=== PATIENT | female | born 1975 | race Caucasian/White ===

== ENCOUNTER 2017-12-16 10:00 | Outpatient (CLI) | payer MEDICAID, SELFPAY ==
[2017-12-16 10:31] LABS: Abs Immature Grans 0.01 k/cumm (0.0-0.09); Absolute Basophil Count 0.04 k/cumm (0.0-0.2); Absolute Eosinophil Count 0.33 k/cumm (0.0-0.7); Absolute Lymphocyte Count 1.72 k/cumm (1.2-3.4); Absolute Monocyte Count 0.84 k/cumm (0.11-0.7); Absolute Neutrophil Count 5.73 k/cumm (1.2-6.7); Basophils % 0.5; Eosinophils % 3.8; HCT 31.7 % (36.0-46.0); HGB 8.6 g/dL (12.0-15.5); Immature Grans % 0.1; Lymphocytes % 19.8; Mean Corp. HGB Concentration 27.1 g/dL (32.0-36.0); Mean Corpuscular Hemoglobin 19.6 pg (27.0-33.0); Mean Corpuscular Volume 72.4 fL (80-95); Mean Platelet Volume 9.8 fL (8.0-11.0); Monocytes % 9.7; Neutrophils % 66.1; Platelet Count 554 x1000/uL (130-400); RBC 4.38 m/cumm (4.00-5.20); RBC Distribution Width 19.9 % (11.7-14.6); Reticulocyte 2.6 % (0.5-2.4); White Blood Cell Count 8.67 k/cumm (4.4-10.8)
[2017-12-16 11:06] LABS: Anisocytosis 2+; Diff Comment RBC Morph Reviewed; Hypochromasia 2+
[2017-12-16 11:07] LABS: ALT 16 U/L (12-78); AST 21 U/L (15-37); Alkaline Phosphatase 90 U/L (46-116); Anion Gap 5.1 mmol/L (3-11); BUN 2 mg/dL (7-18); Bilirubin, Total 0.5 mg/dL (0.2-1.0); CO2 29.9 mmol/L (21.0-32.0); CREATININE 0.55 mg/dL (0.55-1.02); Calcium 8.7 mg/dL (8.5-10.1); Chloride 102 mmol/L (98-107); Ferritin 5 ng/mL (8-388); Glucose 90 mg/dL (70-100); Macrocytosis 1+; Microcytosis 1+; Polychromasia Present; Potassium 4.2 mmol/L (3.5-5.1); Sodium 137 mmol/L (136-145); Stomatocytes 2+; Total Protein 8.6 g/dL (6.4-8.2); Vitamin B12 497 pg/mL (193-986)
[2017-12-16 11:15] LABS: Poikilocytes 1+
[2017-12-16 11:30] LABS: Iron 173 ug/dL (50-175); Total Iron Binding Capacity 444 ug/dL (250-450); Transferrin Sat 39 % (15-50)
[2017-12-17 16:21] LABS: Erythropoietin 129 mIU/mL (2.6 - 18.5)
== END 2017-12-16 10:01 ==
PROVIDERS: PCP Specialist/Technologist Athletic Trainer; Visit Provider Specialist/Technologist Athletic Trainer
DX: D64.9 Anemia, unspecified (principal)
CPT/HCPCS: 36415; 80053; 82668; 82607; 82728; 82746; 83540; 83550; 85025; 85045

== ENCOUNTER 2018-01-22 11:23 | Outpatient (REF) | payer MEDICAID, SELFPAY ==
[2018-01-22 22:04] LABS: HCT 39.4 % (36.0-46.0); HGB 11.5 g/dL (12.0-15.5)
[2018-01-23 00:21] LABS: Ferritin 33 ng/mL (8-388)
== END 2018-01-22 11:43 ==
LOC: NCHCN 11:23
PROVIDERS: PCP Specialist/Technologist Athletic Trainer; Visit Provider Specialist/Technologist Athletic Trainer
DX: D64.9 Anemia, unspecified (principal)
CPT/HCPCS: 82728; 85014; 85018

== ENCOUNTER 2018-03-02 13:53 | Emergency (ER) | payer MEDICAID, SELFPAY ==
[2018-03-02 13:56] VITALS: BP 164/65; PULSE 89; RESP 16; TEMP 36.7; O2SAT 100
[2018-03-02 14:04] VITALS: BP 151/67; PULSE 90; RESP 16; O2SAT 99
--- NOTE | 2018-03-02 14:04 | W.ED.GENAD ---
Discharge Plan Disposition Patient Disposition: HOME Condition: Good Discharge Details Chief Complaint: DentalOral Clinical Impression: Odontalgia Primary Care Provider: Jeremy Camejo ED Provider: Vicente Barron Home Meds and New Rx's Prescriptions: New penicillin V potassium 500 mg tablet 500 mg PO TID 10 Days Qty: 30 RF: 0 Continue medroxyprogesterone [Provera] 10 MG tablet 10 mg PO DAILY Qty: 60 RF: 1 ferrous sulfate 325 MG tablet 325 mg PO DAILY PRNRF: 0 omeprazole 20 MG capsule,delayed release(DR/EC) 20 mg PO DAILY RF: 0 Discharge Instructions Instructions: Toothache (ED) Additional Instructions: Home to rest today. May use warm, salt water gargles to ease discomfort. May apply warm compress to area to speed healing. Please take penicillin as prescribed Please establish dental care. See enclosed dental sheet. You may also contact the [facility] for dentistry follow-up. There phone number is [phone] Medical Decision Making 42-year-old female with generally poor dentition presents with odontalgia of the left maxilla. She has numerous dental caries and partial teeth throughout. She does not evidence of localized abscess. We will treat with a course of penicillin. She will reestablish dental care. She understands return precautions as well as home management. HPI General Mode of arrival: ambulatory. Date/Time Provider Initiated Documentation: 03/02/18 13:55. Limitations to Documentation: no limitations. Information obtained by: patient. History of Present Illness 42 year old F presents to the emergency department with the chief complaint of Left tooth pain, described as moderate, Quality is described as aching, and is localized to the mouth. Patient reports no radiation. Patient started experiencing this day(s) and it has been constant. No relieving factors improve symptom(s), HPI Narrative: 42-year-old female with poor dentition presents with 2 days of the gradual onset of left maxillary pain that is dull, achy, constant, nonradiating, worse with eating. She does not have fever or change to voice. She has been taking liquids solids by mouth Related Data Home Medications Medication Instructions Recorded Confirmed ferrous sulfate 325 mg PO DAILY PRN 12/07/14 03/02/18 omeprazole 20 mg PO DAILY 12/07/14 03/02/18 medroxyprogesterone [Provera] 10 mg PO DAILY #60 tab-cap 11/06/17 03/02/18 penicillin V potassium 500 mg PO TID 10 Days #30 tab 03/02/18 Previous Rx's Medication Instructions Recorded medroxyprogesterone [Provera] 10 mg PO DAILY #60 tab-cap 11/06/17 penicillin V potassium 500 mg PO TID 10 Days #30 tab 03/02/18 Allergies Allergy/AdvReac Type Severity Reaction Status Date / Time No Known Allergies Allergy Unverified 03/02/18 13:59 General Stated Complaint: DentalOral KRISTIE: 5 Review of Systems Review of Systems 6 systems reviewed and otherwise negative [facility] Medical History Chronic GERD Diastasis recti Heart murmur Menorrhagia with irregular cycle Morbid obesity with BMI of 50.0-59.9, adult Transfusion history Social History Smoking/Tobacco Use Status: Current every day Exam Narrative Exam Narrative: GEN: awake, alert, oriented 3. Pleasant, well groomed, interactive. HEAD: Normocephalic, atraumatic ENT: Mucous membranes moist, the uvula is midline without asymmetry or exudate. There is dental caries and partial teeth throughout the maxilla. Tenderness to teeth approximately 7 through 9 without buccal fluctuance. EYES: PERRL, EOMI NECK: Full ROM, no MARTINEZ, no menigismus EXT: Full ROM, no edema, no rash Neuro: Grossly normal neurologic exam, conversant, interactive. Psych: Speech fluent, thoughts congruent, affect normal Course Vital Signs Temperature 36.7 C 03/02/18 13:56 Pulse 89 03/02/18 13:56 Respiratory Rate 16 03/02/18 13:56 Blood Pressure 164/65 H 03/02/18 13:56 Pulse Oximetry 100 03/02/18 13:56 Temperature 36.7 C 03/02/18 13:56 Temperature Source Skin 03/02/18 13:56 Pulse 89 03/02/18 13:56 Respiratory Rate 16 03/02/18 13:56 Respiratory Effort Non-Labored 03/02/18 13:58 Blood Pressure 164/65 H 03/02/18 13:56 Pulse Oximetry 100 03/02/18 13:56 Pain Level 10 03/02/18 14:00
--- NOTE | 2018-03-02 14:08 | ED.GENADUL_ITS ---
Discharge Plan Disposition Patient Disposition: HOME Condition: Good Discharge Details Chief Complaint: DentalOral Clinical Impression: Odontalgia Primary Care Provider: Jeremy Camejo ED Provider: Vicente Barron Home Meds and New Rx's Prescriptions: New penicillin V potassium 500 mg tablet 500 mg PO TID 10 Days Qty: 30 RF: 0 Continue medroxyprogesterone [Provera] 10 MG tablet 10 mg PO DAILY Qty: 60 RF: 1 ferrous sulfate 325 MG tablet 325 mg PO DAILY PRNRF: 0 omeprazole 20 MG capsule,delayed release(DR/EC) 20 mg PO DAILY RF: 0 Discharge Instructions Instructions: Toothache (ED) Additional Instructions: Home to rest today. May use warm, salt water gargles to ease discomfort. May apply warm compress to area to speed healing. Please take penicillin as prescribed Please establish dental care. See enclosed dental sheet. You may also contact the [facility] for dentistry follow-up. There phone number is [phone] Medical Decision Making 42-year-old female with generally poor dentition presents with odontalgia of the left maxilla. She has numerous dental caries and partial teeth throughout. She does not evidence of localized abscess. We will treat with a course of penicillin. She will reestablish dental care. She understands return precautions as well as home management. HPI General Mode of arrival: ambulatory . Date/Time Provider Initiated Documentation: 03/02/18 13:55 . Limitations to Documentation: no limitations . Information obtained by: patient . History of Present Illness 42 year old F presents to the emergency department with the chief complaint of Left tooth pain, described as moderate, Quality is described as aching, and is localized to the mouth. Patient reports no radiation. Patient started experiencing this day(s) and it has been constant. No relieving factors improve symptom(s), HPI Narrative: 42-year-old female with poor dentition presents with 2 days of the gradual onset of left maxillary pain that is dull, achy, constant, nonradiating, worse with eating. She does not have fever or change to voice. She has been taking liquids solids by mouth Related Data Home Medications Medication Instructions Recorded Confirmed ferrous sulfate 325 mg PO DAILY PRN 12/07/14 03/02/18 omeprazole 20 mg PO DAILY 12/07/14 03/02/18 medroxyprogesterone [Provera] 10 mg PO DAILY #60 tab-cap 11/06/17 03/02/18 penicillin V potassium 500 mg PO TID 10 Days #30 tab 03/02/18 Previous Rx's Medication Instructions Recorded medroxyprogesterone [Provera] 10 mg PO DAILY #60 tab-cap 11/06/17 penicillin V potassium 500 mg PO TID 10 Days #30 tab 03/02/18 Allergies Allergy/AdvReac Type Severity Reaction Status Date / Time No Known Allergies Allergy Unverified 03/02/18 13:59 General Stated Complaint: DentalOral KRISTIE: 5 Review of Systems Review of Systems 6 systems reviewed and otherwise negative [facility] Medical History Chronic GERD Diastasis recti Heart murmur Menorrhagia with irregular cycle Morbid obesity with BMI of 50.0-59.9, adult Transfusion history Social History Smoking/Tobacco Use Status: Current every day Exam Narrative Exam Narrative: GEN: awake, alert, oriented 3. Pleasant, well groomed, interactive. HEAD: Normocephalic, atraumatic ENT: Mucous membranes moist, the uvula is midline without asymmetry or exudate. There is dental caries and partial teeth throughout the maxilla. Tenderness to teeth approximately 7 through 9 without buccal fluctuance. EYES: PERRL, EOMI NECK: Full ROM, no MARTINEZ, no menigismus EXT: Full ROM, no edema, no rash Neuro: Grossly normal neurologic exam, conversant, interactive. Psych: Speech fluent, thoughts congruent, affect normal Course Vital Signs Temperature 36.7 C 03/02/18 13:56 Pulse 89 03/02/18 13:56 Respiratory Rate 16 03/02/18 13:56 Blood Pressure 164/65 H 03/02/18 13:56 Pulse Oximetry 100 03/02/18 13:56 Temperature 36.7 C 03/02/18 13:56 Temperature Source Skin 03/02/18 13:56 Pulse 89 03/02/18 13:56 Respiratory Rate 16 03/02/18 13:56 Respiratory Effort Non-Labored 03/02/18 13:58 Blood Pressure 164/65 H 03/02/18 13:56 Pulse Oximetry 100 03/02/18 13:56 Pain Level 10 03/02/18 14:00
[2018-03-02] MEDS: Penicillin V POTASSIUM 500 MG TAB PO (14:15)
[2018-03-02] MEDS: Acetaminophen 500 MG TAB 1000 MG PO (14:15)
== END 2018-03-02 14:20 | disposition home or self-care (01) ==
LOC: ER 14:09
PROVIDERS: Emergency Provider Emergency Medicine; PCP Specialist/Technologist Athletic Trainer
DX: R68.84 Jaw pain (principal); K02.9 Dental caries, unspecified
CPT/HCPCS: 99283; 99284

== ENCOUNTER 2018-03-03 14:56 | Emergency (ER) | payer MEDICAID, SELFPAY ==
[2018-03-03 15:25] VITALS: BP 145/75; PULSE 113; RESP 20; TEMP 37.3; O2SAT 96
--- NOTE | 2018-03-03 16:22 | NUR.NOTE ---
Patient escorted to room 9 at 1608. Pension Manager (Juani Delaney RN) assumed care at this point. Dr. Sharp in [place] to see Ms. Singletary. Rapid Influenza test negative.Nursing Note:
--- NOTE | 2018-03-03 16:28 | W.ED.GENAD ---
Discharge Plan Disposition Patient Disposition: HOME Condition: Stable Discharge Details Chief Complaint: Fever Clinical Impression: Dental infection Reason For Visit: [facility] Primary Care Provider: Jeremy Camejo ED Provider: Maricruz Sharp Home Meds and New Rx's Prescriptions: Continue medroxyprogesterone [Provera] 10 MG tablet 10 mg PO DAILY Qty: 60 RF: 1 ferrous sulfate 325 MG tablet 325 mg PO DAILY PRNRF: 0 omeprazole 20 MG capsule,delayed release(DR/EC) 20 mg PO DAILY RF: 0 penicillin V potassium 500 mg tablet 500 mg PO TID 10 Days Qty: 30 RF: 0 Discharge Instructions Instructions: Dental Caries (ED) Additional Instructions: You have a tooth infection but no obvious abscess on your exam today. It can be normal to develop a fever when you have an infection. Fever can make you feel tired, with chills and bodyaches. It is important to control the fever with tylenol and motrin as directed. Finish the antibiotics as directed. Drink plenty of fluids and get plenty of rest. Call a dentist to schedule a follow up appointment within the next week for re-evaluation and possible dental extraction. Return immediately to the emergency department if you develop any worsening or new concerning symptoms such as persistent fevers not relieved with tylenol or motrin, significant facial swelling, difficulty swallowing or swollen neck. Discharge Data Discharge Date/Time-TO BE ENTERED AT DEPARTURE: 03/03/18 16:40 Discharge Physician: Maricruz Sharp Medical Decision Making 42-year-old female who presents for fever and chills at home today. T-max 102. Patient was seen here yesterday for dental pain and was given a prescription for penicillin. She states she is taking the penicillin. She has not taken ibuprofen or Tylenol today. She denies headache, neck pain, sore throat, nasal discharge or congestion, cough, chest pain, shortness of breath, abdominal pain, vomiting, diarrhea or urinary symptoms. Patient appears nontoxic and in no acute distress. She is afebrile here. Heart rate tachycardic in triage but is now regular rate upon my assessment. Lungs clear to auscultation. She has a dental infection around approximate tooth #10, multiple caries and missing teeth throughout, but no obvious abscess. No submandibular swelling, fullness or evidence of Bernardo's angina. Explained to patient that with a dental infection, she can expect fever. Discussed that chills and body aches can be a result of the fever. Dose of Tylenol given here. She is instructed to drink plenty of fluids, alternate Tylenol and Motrin, and finish the antibiotics. It was discussed that antibiotics can take up to 48 hours to produce an effect. She is instructed to follow-up with a dentist through referrals given to her yesterday within the next week. She is instructed to return here immediately if worse. HPI General Mode of arrival: ambulatory. Date/Time Provider Initiated Documentation: 03/03/18 15:27. Limitations to Documentation: no limitations. Information obtained by: patient. HPI Narrative: Pt is a 42yo F who presents for fever, chills, bodyaches and dental infection x 1 day. Pt was seen here yesterday for dental pain and was sent home with penicillin for a dental infection but no abscess was seen at that time. Pt states her discharge instructions has instructed her to return to the ED with any fever or chills. Pt states she developed a fever of 102 today. She last took ibuprofen yesterday and did not take ibuprofen or tylenol today. Pt states she also wants to be checked for the flu because of her symptoms of bodyaches and chills. Past medical history: Anemia, GERD Surgical history: None Social history: Smokes tobacco, Occasional alcohol, Denies drugs Meds: See list Allergies: None Related Data Home Medications Medication Instructions Recorded Confirmed ferrous sulfate 325 mg PO DAILY PRN 12/07/14 03/03/18 omeprazole 20 mg PO DAILY 12/07/14 03/03/18 medroxyprogesterone [Provera] 10 mg PO DAILY #60 tab-cap 11/06/17 03/03/18 penicillin V potassium 500 mg PO TID 10 Days #30 tab 03/02/18 03/03/18 Previous Rx's Medication Instructions Recorded medroxyprogesterone [Provera] 10 mg PO DAILY #60 tab-cap 11/06/17 penicillin V potassium 500 mg PO TID 10 Days #30 tab 03/02/18 Allergies Allergy/AdvReac Type Severity Reaction Status Date / Time No Known Allergies Allergy Unverified 03/03/18 15:28 General Stated Complaint: Fever KRISTIE: 4 Review of Systems Review of Systems All systems reviewed & are unremarkable except as noted in HPI and below Constitutional Reports as per HPI, Reports body ache(s), Reports chills and Reports fever(s) Eyes Denies blurry vision ENT Reports dental pain, Denies dizziness, Denies sore throat and Denies throat swelling Cardiovascular Denies chest pain and Denies dyspnea Respiratory Denies dyspnea Gastrointestinal Denies abdominal pain, Denies diarrhea and Denies vomiting Genitourinary Denies hematuria and Denies dysuria Musculoskeletal Denies back pain and Denies numbness Integumentary/Breasts Denies lesions and Denies rash Neurologic Denies dizziness and Denies numbness Allergic/Immunologic Denies throat swelling [facility] Medical History Chronic GERD Diastasis recti Heart murmur Menorrhagia with irregular cycle Morbid obesity with BMI of 50.0-59.9, adult Transfusion history Social History Smoking/Tobacco Use Status: Current every day Exam Const General: cooperative, healthy appearing and no acute distress HENMT Head: normal to inspection Ears: TM's normal bilaterally General nose exam: external nose normal and nares normal Mouth: oral mucosae normal Teeth and gingiva: other (Approximately tooth number 10 with surrounding mucosal edema and erythema and tenderness to palpation but no discrete abscess.) Throat: posterior oropharynx normal Eyes General: appearance normal, both eyes and all related structures Neck Neck: normal visual inspection, trachea midline, no tracheal deviation and No submandibular swelling Resp Effort & Inspection: normal respiratory effort and able to speak in complete sentences Auscultation: clear to auscultation bilaterally Cardio Rate: regular rate Rhythm: regular rhythm Skin General skin exam: no rashes or lesions noted Neuro General: alert, awake and oriented x3 Motor: muscle tone normal throughout Extrem General: full ROM and edema (nonpitting indurated b/l lower extremities) Psych Appearance: grossly normal Affect: normal affect Course Vital Signs Temperature 99.1 F 03/03/18 15:25 Pulse 113 H 03/03/18 15:25 Respiratory Rate 20 03/03/18 15:25 Blood Pressure 145/75 H 03/03/18 15:25 Pulse Oximetry 96 03/03/18 15:25 Temperature 99.1 F 03/03/18 15:25 Temperature Source Temporal Artery Scan 03/03/18 15:25 Pulse 113 H 10/22/18 15:25 Respiratory Rate 20 03/03/18 15:25 Respiratory Effort Non-Labored 03/03/18 15:25 Blood Pressure 145/75 H 03/03/18 15:25 Blood Pressure Position Supine 03/03/18 15:25 Pulse Oximetry 96 03/03/18 15:25 Oxygen Delivery Method Room Air 03/03/18 15:25 Oxygen Flow Rate 0 03/03/18 15:25 Pain Level 0 03/03/18 15:25 Lab/Test Results Lab/Test Results: 03/03/18 14:59 Nasopharynx Influenza Types A,B Antigen - Final
[2018-03-03] MEDS: Acetaminophen 325 MG TAB 650 MG PO (16:31)
--- NOTE | 2018-03-03 16:34 | ED.GENADUL_ITS ---
Discharge Plan Disposition Patient Disposition: HOME Condition: Stable Discharge Details Chief Complaint: Fever Clinical Impression: Dental infection Reason For Visit: [facility] Primary Care Provider: Jeremy Camejo ED Provider: Maricruz Sharp Home Meds and New Rx's Prescriptions: Continue medroxyprogesterone [Provera] 10 MG tablet 10 mg PO DAILY Qty: 60 RF: 1 ferrous sulfate 325 MG tablet 325 mg PO DAILY PRNRF: 0 omeprazole 20 MG capsule,delayed release(DR/EC) 20 mg PO DAILY RF: 0 penicillin V potassium 500 mg tablet 500 mg PO TID 10 Days Qty: 30 RF: 0 Discharge Instructions Instructions: Dental Caries (ED) Additional Instructions: You have a tooth infection but no obvious abscess on your exam today. It can be normal to develop a fever when you have an infection. Fever can make you feel tired, with chills and bodyaches. It is important to control the fever with tylenol and motrin as directed. Finish the antibiotics as directed. Drink plenty of fluids and get plenty of rest. Call a dentist to schedule a follow up appointment within the next week for re- evaluation and possible dental extraction. Return immediately to the emergency department if you develop any worsening or new concerning symptoms such as persistent fevers not relieved with tylenol or motrin, significant facial swelling, difficulty swallowing or swollen neck. Discharge Data Discharge Date/Time-TO BE ENTERED AT DEPARTURE: 03/03/18 16:40 Discharge Physician: Maricruz Sharp Medical Decision Making 42-year-old female who presents for fever and chills at home today. T-max 102. Patient was seen here yesterday for dental pain and was given a prescription for penicillin. She states she is taking the penicillin. She has not taken ibuprofen or Tylenol today. She denies headache, neck pain, sore throat, nasal discharge or congestion, cough, chest pain, shortness of breath, abdominal pain , vomiting, diarrhea or urinary symptoms. Patient appears nontoxic and in no acute distress. She is afebrile here. Heart rate tachycardic in triage but is now regular rate upon my assessment. Lungs clear to auscultation. She has a dental infection around approximate tooth #10, multiple caries and missing teeth throughout, but no obvious abscess. No submandibular swelling, fullness or evidence of Bernardo's angina. Explained to patient that with a dental infection, she can expect fever. Discussed that chills and body aches can be a result of the fever. Dose of Tylenol given here. She is instructed to drink plenty of fluids, alternate Tylenol and Motrin, and finish the antibiotics. It was discussed that antibiotics can take up to 48 hours to produce an effect. She is instructed to follow-up with a dentist through referrals given to her yesterday within the next week. She is instructed to return here immediately if worse. HPI General Mode of arrival: ambulatory . Date/Time Provider Initiated Documentation: 03/03/18 15:27 . Limitations to Documentation: no limitations . Information obtained by: patient . HPI Narrative: Pt is a 42yo F who presents for fever, chills, bodyaches and dental infection x 1 day. Pt was seen here yesterday for dental pain and was sent home with penicillin for a dental infection but no abscess was seen at that time. Pt states her discharge instructions has instructed her to return to the ED with any fever or chills. Pt states she developed a fever of 102 today. She last took ibuprofen yesterday and did not take ibuprofen or tylenol today. Pt states she also wants to be checked for the flu because of her symptoms of bodyaches and chills. Past medical history: Anemia, GERD Surgical history: None Social history: Smokes tobacco, Occasional alcohol, Denies drugs Meds: See list Allergies: None Related Data Home Medications Medication Instructions Recorded Confirmed ferrous sulfate 325 mg PO DAILY PRN 12/07/14 03/03/18 omeprazole 20 mg PO DAILY 12/07/14 03/03/18 medroxyprogesterone [Provera] 10 mg PO DAILY #60 tab-cap 11/06/17 03/03/18 penicillin V potassium 500 mg PO TID 10 Days #30 tab 03/02/18 03/03/18 Previous Rx's Medication Instructions Recorded medroxyprogesterone [Provera] 10 mg PO DAILY #60 tab-cap 11/06/17 penicillin V potassium 500 mg PO TID 10 Days #30 tab 03/02/18 Allergies Allergy/AdvReac Type Severity Reaction Status Date / Time No Known Allergies Allergy Unverified 03/03/18 15:28 General Stated Complaint: Fever KRISTIE: 4 Review of Systems Review of Systems All systems reviewed & are unremarkable except as noted in HPI and below Constitutional Reports as per HPI, Reports body ache(s), Reports chills and Reports fever(s) Eyes Denies blurry vision ENT Reports dental pain, Denies dizziness, Denies sore throat and Denies throat swelling Cardiovascular Denies chest pain and Denies dyspnea Respiratory Denies dyspnea Gastrointestinal Denies abdominal pain, Denies diarrhea and Denies vomiting Genitourinary Denies hematuria and Denies dysuria Musculoskeletal Denies back pain and Denies numbness Integumentary/Breasts Denies lesions and Denies rash Neurologic Denies dizziness and Denies numbness Allergic/Immunologic Denies throat swelling [facility] Medical History Chronic GERD Diastasis recti Heart murmur Menorrhagia with irregular cycle Morbid obesity with BMI of 50.0-59.9, adult Transfusion history Social History Smoking/Tobacco Use Status: Current every day Exam Const General: cooperative, healthy appearing and no acute distress HENMT Head: normal to inspection Ears: TM's normal bilaterally General nose exam: external nose normal and nares normal Mouth: oral mucosae normal Teeth and gingiva: other (Approximately tooth number 10 with surrounding mucosal edema and erythema and tenderness to palpation but no discrete abscess.) Throat: posterior oropharynx normal Eyes General: appearance normal, both eyes and all related structures Neck Neck: normal visual inspection, trachea midline, no tracheal deviation and No submandibular swelling Resp Effort & Inspection: normal respiratory effort and able to speak in complete sentences Auscultation: clear to auscultation bilaterally Cardio Rate: regular rate Rhythm: regular rhythm Skin General skin exam: no rashes or lesions noted Neuro General: alert, awake and oriented x3 Motor: muscle tone normal throughout Extrem General: full ROM and edema (nonpitting indurated b/l lower extremities) Psych Appearance: grossly normal Affect: normal affect Course Vital Signs Temperature 99.1 F 03/03/18 15:25 Pulse 113 H 03/03/18 15:25 Respiratory Rate 20 03/03/18 15:25 Blood Pressure 145/75 H 03/03/18 15:25 Pulse Oximetry 96 03/03/18 15:25 Temperature 99.1 F 03/03/18 15:25 Temperature Source Temporal Artery Scan 03/03/18 15:25 Pulse 113 H 10/22/18 15:25 Respiratory Rate 20 03/03/18 15:25 Respiratory Effort Non-Labored 03/03/18 15:25 Blood Pressure 145/75 H 03/03/18 15:25 Blood Pressure Position Supine 03/03/18 15:25 Pulse Oximetry 96 03/03/18 15:25 Oxygen Delivery Method Room Air 03/03/18 15:25 Oxygen Flow Rate 0 03/03/18 15:25 Pain Level 0 03/03/18 15:25 Lab/Test Results Lab/Test Results: 03/03/18 14:59 Nasopharynx Influenza Types A,B Antigen - Final
== END 2018-03-03 16:40 | disposition home or self-care (01) ==
PROVIDERS: Emergency Provider Physician Assistant; PCP Specialist/Technologist Athletic Trainer
DX: K04.7 Periapical abscess without sinus (principal)
CPT/HCPCS: 87449; 99282

== ENCOUNTER 2018-03-12 14:22 | Outpatient (REF) | payer MEDICAID, SELFPAY ==
[2018-03-12 20:33] LABS: HGB 11.3 g/dL (12.0-15.5); Mean Corp. HGB Concentration 29.7 g/dL (32.0-36.0); Mean Corpuscular Hemoglobin 24.8 pg (27.0-33.0); Mean Corpuscular Volume 83.3 fL (80-95); Platelet Count 530 x1000/uL (130-400); RBC 4.56 m/cumm (4.00-5.20); RBC Distribution Width 14.3 % (11.7-14.6); White Blood Cell Count 10.14 k/cumm (4.4-10.8)
[2018-03-12 21:38] LABS: ALT 18 U/L (12-78); AST 16 U/L (15-37); Albumin 2.9 g/dL (3.4-5.0); Alkaline Phosphatase 103 U/L (46-116); Anion Gap 9.2 mmol/L (3-11); BUN 4 mg/dL (7-18); Bilirubin, Total 0.3 mg/dL (0.2-1.0); CO2 27.8 mmol/L (21.0-32.0); CREATININE 0.53 mg/dL (0.55-1.02); Calcium 9.2 mg/dL (8.5-10.1); Chloride 99 mmol/L (98-107); Cholesterol 141 mg/dL (50-200); Glucose 133 mg/dL (70-100); HDL Cholesterol 32 mg/dL (40-60); LDL CHOLESTEROL 98 mg/dL (<100); Potassium 4.5 mmol/L (3.5-5.1); Sodium 136 mmol/L (136-145); Triglyceride 87 mg/dL (30-150)
== END 2018-03-12 14:42 ==
LOC: NCHCN 14:22
PROVIDERS: PCP Specialist/Technologist Athletic Trainer; Visit Provider Specialist/Technologist Athletic Trainer
DX: D64.9 Anemia, unspecified (principal); F17.209 Nicotine dependence, unspecified, with unspecified nicotine-induced disorders; Z00.00 Encounter for general adult medical examination without abnormal findings
CPT/HCPCS: 80053; 80061; 83721; 85027

== ENCOUNTER 2018-04-17 00:28 | Outpatient (CLI) | payer MEDICAID, SELFPAY ==
--- NOTE | 2018-04-17 14:00 | MERGE_ITS ---
*[facility]* *[facility]* [address] [place] [address] Date of study: 04/17/2018 Transthoracic Echocardiography M-mode, complete 2D, complete spectral Doppler, and color Doppler *STUDY CONCLUSIONS* Summary: 1. Left ventricle: The cavity size was normal. Wall thickness was increased in a pattern of moderate LVH. Systolic function was vigorous. The estimated ejection fraction was 65-70%. Wall motion was normal; there were no regional wall motion abnormalities. 2. Right ventricle: The cavity size was at the upper limits of normal. Systolic function was low normal. 3. Aortic valve: A bicuspid morphology cannot be excluded; mildly thickened leaflets. Valve mobility was restricted. Transvalvular velocity was increased. There was mild stenosis. Peak velocity (S): 2.5m/sec. VTI ratio of LVOT to aortic valve: 0.53. 4. Inferior vena cava: The vessel was patent and normal in size. The respirophasic diameter changes were in the normal range (greater than or equal to 50%), consistent with normal central venous pressure. *PATIENT PRESENTATION* Height: 170.2cm ((67in) ) S/D Pressure: 146 / 74 Weight: 117.9kg ((259.5lb) ) BSA: 2.42m^2 Test start time: 02:15 PM. Test stop time: 03:15 PM. PERFORMING Unknown PERFORMING [facility] ORDERING Jeremy Camejo REFERRING Jeremy Camejo CLINICAL APPEALS REVIEWER Laura Brewer, (R)(CT), [facility] *PROCEDURE DATA* Procedure information: The patient was identified by two identifiers. This study was interpreted by [facility]. Pertinent images and digital data are archived for permanent storage and are available for subsequent review. No prior study was available for comparison. Study status: Routine. Transthoracic echocardiography. M-mode, complete 2D, complete spectral Doppler, and color Doppler. A Transthoracic Echocardiogram was performed. Scanning was performed from the parasternal, apical, subcostal, and suprasternal notch acoustic windows. Images were obtained using an [id number] cardiac ultrasound machine. Image quality was adequate. Study completion: The patient tolerated the procedure well. There were no complications. History: PMH: Murmur WILD. *CARDIAC ANATOMY* Left ventricle: The cavity size was normal. Wall thickness was increased in a pattern of moderate LVH. Systolic function was vigorous. The estimated ejection fraction was 65-70%. Wall motion was normal; there were no regional wall motion abnormalities. Aortic valve: Poorly visualized. A bicuspid morphology cannot be excluded; mildly thickened leaflets. Valve mobility was restricted. Doppler: Transvalvular velocity was increased. There was mild stenosis. There was no significant regurgitation. VTI ratio of LVOT to aortic valve: 0.53. Valve area (VTI): 1.7cm^2. Indexed valve area (VTI): 0.7cm^2/m^2. Peak velocity ratio of LVOT to aortic valve: 0.51. Valve area (Vmax): 1.6cm^2. Indexed valve area (Vmax): 0.7cm^2/m^2. Mean velocity ratio of LVOT to aortic valve: 0.59. Valve area (Vmean): 1.9cm^2. Indexed valve area (Vmean): 0.8cm^2/m^2. Mean gradient (S): 14.2mm Hg. Peak gradient (S): 24.6mm Hg. Aorta: Aortic root: The aortic root was normal in size. Ascending aorta: The ascending aorta was normal in size. Mitral valve: Structurally normal valve. Mobility was not restricted. Doppler: Transvalvular velocity was within the normal range. There was no evidence for stenosis. There was mild regurgitation. Valve area by pressure half-time: 3.6cm^2. Indexed valve area by pressure half-time: 1.5cm^2/m^2. Peak gradient (D): 8.1mm Hg. Left atrium: The atrium was normal in size. Right ventricle: The cavity size was at the upper limits of normal. Systolic function was low normal. Pulmonic valve: Poorly visualized. Doppler: Transvalvular velocity was within the normal range. There was no evidence for stenosis. There was no significant regurgitation. Tricuspid valve: Structurally normal valve. Doppler: Transvalvular velocity was within the normal range. There was no evidence for stenosis. There was trivial regurgitation. Pulmonary artery: Poorly visualized. Systolic pressure could not be accurately estimated. Right atrium: The atrium was normal in size. Pericardium: There was no pericardial effusion. Systemic veins: Inferior vena cava: Well visualized. The vessel was patent and normal in size. The respirophasic diameter changes were in the normal range (greater than or equal to 50%), consistent with normal central venous pressure. Baseline ECG: Normal sinus rhythm. Measurements Left ventricle Value Reference LV ID, ED, PLAX 4.5 cm 3.5 - 6.0 LV ID, ES, PLAX 3.2 cm 2.1 - 4.0 LV PW thickness, ED, PLAX 1.4 cm LV end-diastolic volume, 1-p A2C 150 ml LV ejection fraction, 1-p A2C 72 % LV end-diastolic volume, 1-p A4C 182 ml LV e', lateral 0.123 m/sec LV E/e', lateral 12 LV e', medial 0.091 m/sec LV E/e', medial 16 LV e', average 0.107 m/sec LV E/e', average 13 Ventricular septum Value Reference IVS thickness, ED, PLAX 1.5 cm LVOT Value Reference LVOT ID, A-P 2.0 cm LVOT area 3.2 cm^2 LVOT peak velocity, S 1.26 m/sec LVOT mean velocity, S 1.05 m/sec LVOT VTI, S 26.4 cm LVOT peak gradient, S 6.3 mm Hg LVOT mean gradient, S 4.6 mm Hg Stroke volume (SV), LVOT DP 83 ml Stroke index (SV/bsa), LVOT DP 34 ml/m^2 Aortic valve Value Reference Aortic valve peak velocity, S 2.5 m/sec Aortic valve mean velocity, S 1.77 m/sec Aortic valve VTI, S 50.0 cm Aortic mean gradient, S 14.2 mm Hg Aortic peak gradient, S 24.6 mm Hg VTI ratio, LVOT/AV 0.53 Aortic valve area, VTI 1.7 cm^2 Velocity ratio, peak, LVOT/AV 0.51 Aortic valve area, peak velocity 1.6 cm^2 Velocity ratio, mean, LVOT/AV 0.59 Aortic valve area, mean velocity 1.9 cm^2 Aortic valve area/bsa, mean velocity 0.8 cm^2/m^2 Aorta Value Reference Aortic root ID, ED 2.8 cm Ascending aorta ID, A-P, S 3.0 cm Left atrium Value Reference LA ID, A-P, ES 3.8 cm LA ID/bsa, A-P 1.6 cm/m^2 <=2.2 LA area, ES, A4C 19.2 cm^2 8.8 - 23.4 LA area, ES, A2C 21 cm^2 LA volume/bsa, ES, 1-p A4C 25 ml/m^2 LA volume, ES, 2-p 59 ml LA volume/bsa, ES, 2-p 24 ml/m^2 LA/aortic root ratio 1.39 Mitral valve Value Reference Mitral E-wave peak velocity 1.43 m/sec Mitral A-wave peak velocity 0.88 m/sec Mitral deceleration time 209 ms 150 - 230 Mitral pressure half-time 61 ms Mitral peak gradient, D 8.1 mm Hg Mitral E/A ratio, peak 1.62 Mitral valve area, PHT, DP 3.6 cm^2 Pulmonary veins Value Reference Pulmonary vein peak velocity, S 0.78 m/sec Pulmonary vein peak velocity, D 0.85 m/sec Pulmonary vein velocity ratio, peak, 0.91 S/D Pulmonary vein A-wave reversal peak 0.31 m/sec velocity Tricuspid valve Value Reference Tricuspid regurg peak velocity 1.6 m/sec Tricuspid peak RV-RA gradient 10.4 mm Hg Right atrium Value Reference RA area, ES, A4C 16.8 cm^2 8.3 - 19.5 Legend: (L) and (H) chepe values outside specified reference range. I have personally reviewed the images and have reviewed and edited the reported findings. Electronically signed by Larissa Bradley 04/17/2018 16:21
== END 2018-04-17 00:48 ==
PROVIDERS: PCP Specialist/Technologist Athletic Trainer; Visit Provider Specialist/Technologist Athletic Trainer
DX: R01.1 Cardiac murmur, unspecified (principal); I35.0 Nonrheumatic aortic (valve) stenosis; G47.33 Obstructive sleep apnea (adult) (pediatric)
CPT/HCPCS: 93306

== ENCOUNTER 2018-04-29 15:25 | Outpatient (REF) | payer MEDICAID, SELFPAY ==
--- NOTE | 2018-04-29 13:20 | PAPFT_PTH ---
PATIENT: TROY SCOTT LOC: [facility] U#:[id number] AGE/SX: 42/F ROOM: RE04/29/[address]: Mora Norton MD : 1975 BED: DIS: 04/29/2018 SPEC #: [id number] RECD: 04/29/18 17:44 STATUS: SENAIT REQ #: [id number] GHADA: 04/29/18 13:[address]: Mora Norton DEPT: [facility] Cytology RECD BY: Milla Kwan ENTERED: 04/29/18 17:44 SP TYPE: PAPFT OTHR DR: Jeremy Camejo Tissues: 1 - CX/ENDOCX FOR PAP SMEARS Procedures: PAP THIN PREP/UVM Screening HPV DNA PROBE Comments: [id number]
--- NOTE | 2018-04-29 13:50 | CER_PTH ---
PATIENT: TROY SCOTT LOC: [facility] U#:[id number] AGE/SX: 42/F ROOM: RE04/29/[address]: Mora Norton MD : 1975 BED: DIS: 04/29/2018 SPEC #: [id number] RECD: 04/29/18 17:37 STATUS: SENAIT REQ #: [id number] GHADA: 04/29/18 13:[address]: Mora Norton DEPT: Surgical Specimen RECD BY: Milla Kwan ENTERED: 04/29/18 17:38 SP TYPE: CER OTHR DR: Jeremy Camejo Tissues: 1 - CERVICAL BIOPSY 2 - CERVICAL BIOPSY 3 - ENDOCERVICAL BX/CURRETTE Procedures: GROSS AND MICRO LEVEL 4 Comments: [id number]
== END 2018-04-29 15:45 ==
LOC: LBN 15:25
PROVIDERS: PCP Specialist/Technologist Athletic Trainer; Visit Provider Obstetrics & Gynecology
DX: N87.0 Mild cervical dysplasia (principal); R87.610 Atypical squamous cells of undetermined significance on cytologic smear of cervix (ASC-US); Z12.4 Encounter for screening for malignant neoplasm of cervix; Z11.51 Encounter for screening for human papillomavirus (HPV)
CPT/HCPCS: 88142; 88305; 87624

== ENCOUNTER 2018-06-09 00:59 | Outpatient (CLI) | payer MEDICAID, SELFPAY ==
--- NOTE | 2018-06-09 13:09 | DI.RAD_ITS ---
SYMPTOMS/DIAGNOSIS: COUGH, R05 PA AND LATERAL CHEST: There are no prior comparison exams. The exam is limited by the patient's body habitus. The heart size is within normal limits. There is a question of some pulmonary artery prominence and mild peribronchial thickening as well as some increased interstitial markings which could indicate mild CHF. No focal area of consolidation or effusion is seen. IMPRESSION: Limited exam. Question of mild CHF.
== END 2018-06-09 01:19 ==
PROVIDERS: PCP Specialist/Technologist Athletic Trainer; Visit Provider Specialist/Technologist Athletic Trainer
DX: R05 Cough (principal); I50.9 Heart failure, unspecified
CPT/HCPCS: 71046

== ENCOUNTER 2018-06-12 17:10 | Inpatient (IN) | payer MEDICAID, SELFPAY ==
[2018-06-12] VITALS (44 sets, daily range): BP systolic 112–159; BP diastolic 45–81; PULSE 76–111; RESP 4–34; TEMP 37.1–37.8; O2SAT 67–99
[2018-06-12] MEDS: Albuterol 2.5 MG/3 ML INH SOLN VIAL UPD ×2 (17:25→19:45)
--- NOTE | 2018-06-12 17:49 | DI.CT_ITS ---
SYMPTOM/DIAGNOSIS: SHORTNESS OF BREATH, HYPOXIA, TACHYCARDIA, OBESE CT ANGIOGRAPHY OF THE CHEST: 06/12/18 CT angiography of the chest was performed with a bolus infusion of 88 cc Omnipaque 350. The examination is technically limited by the patient's body habitus and motion with suboptimal contrast bolus also noted. Images obtained through the upper abdomen show grossly unremarkable appearance of visualized portions of the liver and spleen. Mild prominence of mediastinal lymph nodes noted with the largest node a right hilar node measuring about 23 mm in greatest diameter. No gross pulmonary embolic disease in central pulmonary arteries or major branches. No thoracic aortic dissection or aneurysm. No pleural effusion seen. There are areas of apparent atelectasis and consolidation involving both lungs. The findings are suspicious for multifocal pneumonia. CONCLUSION: Findings suspicious for multifocal pneumonia. Appropriate follow up studies requested. No major pulmonary embolus identified on this somewhat limited examination.
--- NOTE | 2018-06-12 17:51 | W.ED.GENAD ---
Discharge Plan Disposition Patient Disposition: [facility] INPATIENT Condition: Serious Discharge Details Chief Complaint: SOB Clinical Impression: Pneumonia, Asthma exacerbation in COPD Primary Care Provider: Jeremy Camejo ED Provider: Remy Delcid Home Meds and New Rx's Prescriptions: No Action medroxyprogesterone [Provera] 10 MG tablet 10 mg PO DAILY Qty: 60 RF: 1 ferrous sulfate 325 MG tablet 325 mg PO DAILY PRNRF: 0 omeprazole 20 MG capsule,delayed release(DR/EC) 20 mg PO DAILY RF: 0 prednisone 10 mg Tablet 10 mg PO DAILY RF: 0 ProAir HFA 90 mcg/actuation Hfa Aerosol Inhaler 2 puff INHALATION Q6H PRNRF: 0 metoprolol tartrate 25 mg Tablet 25 mg PO BID RF: 0 Ensure Liquid PO TID RF: 0 Medical Decision Making 17:40 --42-year-old with history of multiple medical problems including chronic lymphedema, COPD, here with persistent cough for the past few weeks, worsening productive over the past few days with associated shortness of breath. Patient is tachypneic and hypoxia in mild respiratory distress on arrival. Patient has also had recent fever. She is tachycardic. Patient in critical condition on arrival. 18:00 -- Patient saturating in the 70s off oxygen. Supplemental oxygen was provided by nasal cannula and now saturating in the 90s. She has diffuse bilateral wheezing. Consider acute COPD exacerbation. I will give Solu-Medrol IV as well as 3 albuterol neb treatment. Respiratory therapy has been consulted and assisting in care of the patient. ECG was reviewed and interpreted by me: Normal sinus rhythm 96 bpm, normal axis, no STEMI, nondiagnostic. Consider pneumonia versus pulmonary embolism versus CHF versus acute COPD exacerbation. 19:27 -- CT reviewed by me: bilateral infiltrate worse RLL. Patient was treated by pcp with azithromycin for cough end of April. Will give levaquin and cefepime IV. 19:40 -- Patient reassessed. Wheeze improved but still present. She notes that she is breathing easier. Saturating mid 90s on 6L nasal canula. Interpreted by radiology:IMPRESSION: 1. Contrast bolus suboptimal for evaluation of pulmonary arteries but no large or central pulmonary embolus is identified. 2. Airspace disease particularly involving the right lung. There is atelectasis greater on the left than the right. Findings are suspicious for pneumonia. Clinical correlation, followup recommended. 3. Mediastinal and hilar nodes, nonspecific but may represent reactive adenopathy in the setting of pneumonia. 19:53 -- Spoke with Dr. Lomeli who will admit the patient. He requests bridging orders be placed to floor. Care transitioned to Dr. Mckenzie at 19:53. HPI General Mode of arrival: ambulatory. Date/Time Provider Initiated Documentation: 06/12/18 17:35. Limitations to Documentation: no limitations. Information obtained by: patient and RN/MD. HPI Narrative: 42-year-old female with history of multiple medical problems including chronic lymphedema, COPD, mild aortic stenosis, here with shortness of breath. Patient notes that she has had cough for the past few weeks. Cough is been much worse over the past few days. She was seen by her primary care physician this week and had a chest x-ray that she notes did not show pneumonia but was concerning for possible CHF. She was seen in the PCPs office today and found to be hypoxic saturating in the mid 70s. She was given oxygen in the office and her oxygenation improved to the 90s. She refused ambulance transport and arrives by private vehicle. Patient notes that her shortness of breath is moderate to severe. Worse with exertion. She has associated cough that is productive of yellow sputum. She also notes fever yesterday and today. She denies associated chest pain. She has chronic lower extremity edema but no calf pain. Related Data Home Medications Medication Instructions Recorded Confirmed ferrous sulfate 325 mg PO DAILY PRN 12/07/14 06/12/18 omeprazole 20 mg PO DAILY 12/07/14 06/12/18 medroxyprogesterone [Provera] 10 mg PO DAILY #60 tab-cap 11/06/17 06/12/18 albuterol sulfate [ProAir HFA] 2 puff INHALATION Q6H PRN 06/12/18 06/12/18 food supplemt, lactose-reduced PO TID 06/12/18 [Ensure] metoprolol tartrate 25 mg PO BID 06/12/18 06/12/18 prednisone 10 mg PO DAILY 06/12/18 06/12/18 Previous Rx's Medication Instructions Recorded medroxyprogesterone [Provera] 10 mg PO DAILY #60 tab-cap 11/06/17 Allergies Allergy/AdvReac Type Severity Reaction Status Date / Time No Known Allergies Allergy Unverified 06/12/18 17:21 General Stated Complaint: SOB KRISTIE: 2 Review of Systems Review of Systems All systems reviewed & are unremarkable except as noted in HPI and below Constitutional Reports fever(s) Cardiovascular Denies chest pain and Reports dyspnea Respiratory Reports cough, Denies hemoptysis, Reports dyspnea and Reports wheezing Hematologic/Lymphatic Reports other (LE edema chronic and unchanged) Allergic/Immunologic Reports wheezing [facility] Medical History Anemia, iron deficiency (Acute) Atypical nevi (Acute) Atypical squamous cells of undetermined significance on cytologic smear of cervix (ASC-US) (Acute) Disease of nail (Acute) Fatty infiltration of liver (Acute) Hernia, diaphragmatic (Acute) High grade squamous intraepithelial lesion on cytologic smear of cervix (HGSIL) (Acute) Internal hemorrhoids (Acute) Irregular menses (Acute) Lymph edema (Acute) Sleep apnea (Acute) Tobacco use disorder (Acute) Alcohol abuse (Chronic) Anemia (Chronic) Chronic obstructive pulmonary disease (Chronic) Chronic GERD Diastasis recti Heart murmur Menorrhagia with irregular cycle Morbid obesity with BMI of 50.0-59.9, adult Transfusion history Social History Smoking/Tobacco Use Status: Current every day History History 0 Para Hx # Term Pregnancies Multiple births Hx # Pregnancies Ectopic pregnancies AB induced Hx Number of Living Children AB spontaneous Exam Const General: cooperative and acute distress respiratory Nutritional Appearance: obese Orientation: alert and awake Limitations: mental status not altered HENAL Head: normocephalic and atraumatic Mouth: moist mucous membranes Eyes Conjunctivae: normal conjunctivae Sclera: normal sclerae EOM: EOM intact bilaterally Neck Neck: trachea midline and supple Resp Effort & Inspection: cough and tachypneic Auscultation: wheezes expiratory wheezes Cardio Jugular venous pressure: no JVD Rhythm: regular rhythm GI Palpation: soft, not firm, no guarding, no masses, not rigid and nontender Skin General skin exam: no rashes or lesions noted, crusts (distal LEs bilateral) and other (no cyanosis) Neuro General: alert, awake, oriented x3 and tone normal Extrem General: no calf tenderness bilaterally and edema Laterality: bilateral Psych Mental Status: mental status grossly normal Speech and Movement: speech and movement normal Course Vital Signs Temperature 37.1 C 06/12/18 17:13 Pulse 101 H 06/12/18 17:13 Respiratory Rate 18 06/12/18 17:13 Blood Pressure 150/81 H 06/12/18 17:13 Pulse Oximetry 67 L 06/12/18 17:13 Temperature 37.1 C 06/12/18 17:13 Temperature Source Temporal Artery Scan 06/12/18 17:13 Pulse 101 H 06/12/18 17:13 Respiratory Rate 18 06/12/18 17:13 Respiratory Effort 06/12/18 17:17 Blood Pressure 150/81 H 06/12/18 17:13 Pulse Oximetry 67 L 06/12/18 17:13 Oxygen Delivery Method Room Air 06/12/18 17:13 Oxygen Flow Rate 0 06/12/18 17:13 Pain Level 0 06/12/18 17:13 Critical Care Time Critical Care Time: Yes Total Critical Care Time: 45 Attestation: I spent greater than 45 minutes addressing this patient's immediate life threats.
--- NOTE | 2018-06-12 17:54 | ED.GENADUL_ITS ---
Discharge Plan Disposition Patient Disposition: [facility] INPATIENT Condition: Serious Discharge Details Chief Complaint: SOB Clinical Impression: Pneumonia, Asthma exacerbation in COPD Primary Care Provider: Jeremy Camejo ED Provider: Remy Delcid Home Meds and New Rx's Prescriptions: No Action medroxyprogesterone [Provera] 10 MG tablet 10 mg PO DAILY Qty: 60 RF: 1 ferrous sulfate 325 MG tablet 325 mg PO DAILY PRNRF: 0 omeprazole 20 MG capsule,delayed release(DR/EC) 20 mg PO DAILY RF: 0 prednisone 10 mg Tablet 10 mg PO DAILY RF: 0 ProAir HFA 90 mcg/actuation Hfa Aerosol Inhaler 2 puff INHALATION Q6H PRNRF: 0 metoprolol tartrate 25 mg Tablet 25 mg PO BID RF: 0 Ensure Liquid PO TID RF: 0 Medical Decision Making 17:40 --42-year-old with history of multiple medical problems including chronic lymphedema, COPD, here with persistent cough for the past few weeks, worsening productive over the past few days with associated shortness of breath. Patient is tachypneic and hypoxia in mild respiratory distress on arrival. Patient has also had recent fever. She is tachycardic. Patient in critical condition on arrival. 18:00 -- Patient saturating in the 70s off oxygen. Supplemental oxygen was provided by nasal cannula and now saturating in the 90s. She has diffuse bilateral wheezing. Consider acute COPD exacerbation. I will give Solu-Medrol IV as well as 3 albuterol neb treatment. Respiratory therapy has been consulted and assisting in care of the patient. ECG was reviewed and interpreted by me: Normal sinus rhythm 96 bpm, normal axis, no STEMI, nondiagnostic. Consider pneumonia versus pulmonary embolism versus CHF versus acute COPD exacerbation. 19:27 -- CT reviewed by me: bilateral infiltrate worse RLL. Patient was treated by pcp with azithromycin for cough end of April. Will give levaquin and cefepime IV. 19:40 -- Patient reassessed. Wheeze improved but still present. She notes that she is breathing easier. Saturating mid 90s on 6L nasal canula. Interpreted by radiology:IMPRESSION: 1. Contrast bolus suboptimal for evaluation of pulmonary arteries but no large or central pulmonary embolus is identified. 2. Airspace disease particularly involving the right lung. There is atelectasis greater on the left than the right. Findings are suspicious for pneumonia. Clinical correlation, followup recommended. 3. Mediastinal and hilar nodes, nonspecific but may represent reactive adenopathy in the setting of pneumonia. 19:53 -- Spoke with Dr. Lomeli who will admit the patient. He requests bridging orders be placed to floor. Care transitioned to Dr. Mckenzie at 19:53. HPI General Mode of arrival: ambulatory . Date/Time Provider Initiated Documentation: 06/12/18 17:35 . Limitations to Documentation: no limitations . Information obtained by: patient and RN/MD . HPI Narrative: 42-year-old female with history of multiple medical problems including chronic lymphedema, COPD, mild aortic stenosis, here with shortness of breath. Patient notes that she has had cough for the past few weeks. Cough is been much worse over the past few days. She was seen by her primary care physician this week and had a chest x- ray that she notes did not show pneumonia but was concerning for possible CHF. She was seen in the PCPs office today and found to be hypoxic saturating in the mid 70s. She was given oxygen in the office and her oxygenation improved to the 90s. She refused ambulance transport and arrives by private vehicle. Patient notes that her shortness of breath is moderate to severe. Worse with exertion. She has associated cough that is productive of yellow sputum. She also notes fever yesterday and today. She denies associated chest pain. She has chronic lower extremity edema but no calf pain. Related Data Home Medications Medication Instructions Recorded Confirmed ferrous sulfate 325 mg PO DAILY PRN 12/07/14 06/12/18 omeprazole 20 mg PO DAILY 12/07/14 06/12/18 medroxyprogesterone [Provera] 10 mg PO DAILY #60 tab-cap 11/06/17 06/12/18 albuterol sulfate [ProAir HFA] 2 puff INHALATION Q6H PRN 06/12/18 06/12/18 food supplemt, lactose-reduced PO TID 06/12/18 [Ensure] metoprolol tartrate 25 mg PO BID 06/12/18 06/12/18 prednisone 10 mg PO DAILY 06/12/18 06/12/18 Previous Rx's Medication Instructions Recorded medroxyprogesterone [Provera] 10 mg PO DAILY #60 tab-cap 11/06/17 Allergies Allergy/AdvReac Type Severity Reaction Status Date / Time No Known Allergies Allergy Unverified 06/12/18 17:21 General Stated Complaint: SOB KRISTIE: 2 Review of Systems Review of Systems All systems reviewed & are unremarkable except as noted in HPI and below Constitutional Reports fever(s) Cardiovascular Denies chest pain and Reports dyspnea Respiratory Reports cough, Denies hemoptysis, Reports dyspnea and Reports wheezing Hematologic/Lymphatic Reports other (LE edema chronic and unchanged) Allergic/Immunologic Reports wheezing [facility] Medical History Anemia, iron deficiency (Acute) Atypical nevi (Acute) Atypical squamous cells of undetermined significance on cytologic smear of cervix (ASC-US) (Acute) Disease of nail (Acute) Fatty infiltration of liver (Acute) Hernia, diaphragmatic (Acute) High grade squamous intraepithelial lesion on cytologic smear of cervix (HGSIL) (Acute) Internal hemorrhoids (Acute) Irregular menses (Acute) Lymph edema (Acute) Sleep apnea (Acute) Tobacco use disorder (Acute) Alcohol abuse (Chronic) Anemia (Chronic) Chronic obstructive pulmonary disease (Chronic) Chronic GERD Diastasis recti Heart murmur Menorrhagia with irregular cycle Morbid obesity with BMI of 50.0-59.9, adult Transfusion history Social History Smoking/Tobacco Use Status: Current every day History History 0 Para Hx # Term Pregnancies Multiple births Hx # Pregnancies Ectopic pregnancies AB induced Hx Number of Living Children AB spontaneous Exam Const General: cooperative and acute distress respiratory Nutritional Appearance: obese Orientation: alert and awake Limitations: mental status not altered HENWA Head: normocephalic and atraumatic Mouth: moist mucous membranes Eyes Conjunctivae: normal conjunctivae Sclera: normal sclerae EOM: EOM intact bilaterally Neck Neck: trachea midline and supple Resp Effort & Inspection: cough and tachypneic Auscultation: wheezes expiratory wheezes Cardio Jugular venous pressure: no JVD Rhythm: regular rhythm GI Palpation: soft, not firm, no guarding, no masses, not rigid and nontender Skin General skin exam: no rashes or lesions noted, crusts (distal LEs bilateral) and other (no cyanosis) Neuro General: alert, awake, oriented x3 and tone normal Extrem General: no calf tenderness bilaterally and edema Laterality: bilateral Psych Mental Status: mental status grossly normal Speech and Movement: speech and movement normal Course Vital Signs Temperature 37.1 C 06/12/18 17:13 Pulse 101 H 06/12/18 17:13 Respiratory Rate 18 06/12/18 17:13 Blood Pressure 150/81 H 06/12/18 17:13 Pulse Oximetry 67 L 06/12/18 17:13 Temperature 37.1 C 06/12/18 17:13 Temperature Source Temporal Artery Scan 06/12/18 17:13 Pulse 101 H 06/12/18 17:13 Respiratory Rate 18 06/12/18 17:13 Respiratory Effort 06/12/18 17:17 Blood Pressure 150/81 H 06/12/18 17:13 Pulse Oximetry 67 L 06/12/18 17:13 Oxygen Delivery Method Room Air 06/12/18 17:13 Oxygen Flow Rate 0 06/12/18 17:13 Pain Level 0 06/12/18 17:13 Critical Care Time Critical Care Time: Yes Total Critical Care Time: 45 Attestation: I spent greater than 45 minutes addressing this patient's immediate life threats.
[2018-06-12] MEDS: Albuterol 2.5 MG/3 ML INH SOLN VIAL (17:57)
[2018-06-12] MEDS: methylPREDNISolone SUCC 125 MG VIAL IVP (17:57)
[2018-06-12] MEDS: Albuterol/Ipratropium 3 ML UPD VIAL UPD ×3 (18:00→23:16)
[2018-06-12 18:01] LABS: Abs Immature Grans 0.07 k/cumm (0.0-0.09); Absolute Basophil Count 0.03 k/cumm (0.0-0.2); Absolute Eosinophil Count 0.22 k/cumm (0.0-0.7); Absolute Lymphocyte Count 1.11 k/cumm (1.2-3.4); Absolute Monocyte Count 1.11 k/cumm (0.11-0.7); Basophils % 0.3; Eosinophils % 2.5; HCT 45.4 % (36.0-46.0); HGB 13.8 g/dL (12.0-15.5); Immature Grans % 0.8; Lymphocytes % 12.6; Mean Corp. HGB Concentration 30.4 g/dL (32.0-36.0); Mean Corpuscular Volume 88.7 fL (80-95); Mean Platelet Volume 9.9 fL (8.0-11.0); Monocytes % 12.6; Neutrophils % 71.2; Platelet Count 310 x1000/uL (130-400); RBC 5.12 m/cumm (4.00-5.20); RBC Distribution Width 15.7 % (11.7-14.6); White Blood Cell Count 8.84 k/cumm (4.4-10.8)
[2018-06-12 18:24] LABS: ALT 16 U/L (12-78); AST 20 U/L (15-37); Alkaline Phosphatase 113 U/L (46-116); Anion Gap 6.5 mmol/L (3-11); BUN 3 mg/dL (7-18); CO2 34.5 mmol/L (21.0-32.0); CREATININE 0.63 mg/dL (0.55-1.02); Chloride 96 mmol/L (98-107); Glucose 93 mg/dL (70-100); Magnesium 1.9 mg/dL (1.8-2.4); Potassium 3.9 mmol/L (3.5-5.1); Sodium 137 mmol/L (136-145); Total Protein 9.2 g/dL (6.4-8.2)
[2018-06-12 18:29] LABS: Troponin I < 0.02 ng/mL (0.00-0.06)
[2018-06-12] MEDS: Omnipaque 350 MG/ML 100 ML BTL IJ (18:46)
[2018-06-12] MEDS: Normal Saline Flush 10 ML SYR IVP ×2 (18:48→21:55)
[2018-06-12 19:20] LABS: NT-proBNP 181 pg/mL
[2018-06-12] MEDS: CEFEPIME 2 GM in Normal Saline 100 ML IVPB (19:34)
--- NOTE | 2018-06-12 19:34 | DI.VRAD_ITS ---
EXAM: CT Angiography Chest With Contrast EXAM DATE/TIME: 06/12/2018 5:51 PM CLINICAL HISTORY: 42 years old, female; Signs and symptoms; Other: SOB, hypoxia, tachycardia, obese TECHNIQUE: Axial computed tomographic angiography images of the chest with intravenous contrast using CT angiography protocol. All CT scans at this facility use at least one of these dose optimization techniques: automated exposure control; mA and/or kV adjustment per patient size (includes targeted exams where dose is matched to clinical indication); or iterative reconstruction. Coronal and sagittal reformatted images were created and reviewed. MIP reconstructed images were created and reviewed. CONTRAST: 88 ml of omnipaque 350 administered intravenously. COMPARISON: CR XR CHEST 2V PA LATERAL 06/09/2018 1:03 PM FINDINGS: Pulmonary arteries: Contrast bolus is suboptimal but there are no intraluminal filling defects identified with in the proximal pulmonary arterial branches to suggest acute pulmonary embolus. Small or distal embolus could be missed on this examination. Aorta: The aorta is non-aneurysmal. There is no acute aortic abnormality. Lungs: Evaluation of the lungs is degraded by patient motion. There is patchy airspace disease at the right lung base/right costophrenic sulcus and also involving the middle lobe at the base. There is also subtle patchy airspace disease with in the right upper lobe. On the left, there are prominent atelectatic changes noted within the left lower lobe. There is some airspace consolidation and/or atelectasis seen within the left upper lobe. There is no evidence of a discrete endobronchial lesion. Pleural space: Large effusion or pneumothorax is not seen. Heart: The heart is upper limits of normal in size. There is no significant pericardial effusion. Liver: There is fatty infiltration of the liver. There are no acute findings identified in the upper abdomen. Lymph nodes: There are multiple mediastinal and hilar nodes noted. Mediastinal nodes measure up to 2.5 x 1.3 cm in the prevascular region is measured on series 4 image 18. Precarinal nodes measure up to 23 mm on image 20. There are small bilateral hilar nodes measuring up to 2.1 cm at the left hilum as measured on series 4 image 27. Bones/joints: There is no acute bony abnormality identified. Soft tissues: Subcutaneous soft tissues are unremarkable. Other findings: Examination is mildly degraded by patient motion. IMPRESSION: 1. Contrast bolus suboptimal for evaluation of pulmonary arteries but no large or central pulmonary embolus is identified. 2. Airspace disease particularly involving the right lung. There is atelectasis greater on the left than the right. Findings are suspicious for pneumonia. Clinical correlation, followup recommended. 3. Mediastinal and hilar nodes, nonspecific but may represent reactive adenopathy in the setting of pneumonia. Dictated and Authenticated by: Alda Gatica MD. Ordering:ESTHER Alberto MD
[2018-06-12] MEDS: LEVOFLOXACIN 750 MG/150 ML BAG 100 MG IVPB (19:35)
[2018-06-12] MEDS: Lactated Ringers 1,000 ML 1000 ML IV (19:35)
[2018-06-12] MEDS: guaiFENesin 600 MG TABCR 1200 MG PO (21:55)
[2018-06-12] MEDS: Enoxaparin 40 MG/0.4 ML SYR SC (21:55)
[2018-06-12] MEDS: Lactated Ringers 1,000 ML 125 ML IV (21:55)
[2018-06-12] MEDS: Benzonatate 200 MG CAP PO (21:55)
--- NOTE | 2018-06-12 23:01 | W.PM.HP.N ---
Date of service: 06/12/18 Time of Service: 23:02 Assessment and Plan (1) Acute pneumonitis: Current visit: Yes Status: Acute continue Levaquin 750 mg iv daily along w/ iv corticosteroids, aerosolized bronchodilators. She should receive the Prevnar 13 prior to discharge home then pneumovax in 6 to 12 months later. She needs to quit smoking and I counseled her on the same. She has cut down from former 1 ppd smoker to current level of 1/2 ppd but none in the last week since she has been ill. History of Present Illness Chief Complaint: dyspnea, wheezing, hypoxemia Narrative: 42 yr old morbidly obese female smoker w/ COPD, chronic lymphedema, GERD, iron deficiency anemia, who presents w/ cough for past few weeks. She was treated in Apr. for bronchitis w/ Zithromax. Cough has been worse over last several days and has been accompanied by wheezing but no fever and minimal sputum. She saw her PCP earlier in the week and had an CXR which was read as limited exam w/ questionable mild CHF (pulmonary artery prominence w/ mild peribronchial thickening and increased interstitial markings). She saw her PCP in follow up today and was noted to be hypoxemic in mid 70 %. She was given supplemental oxygen and an ambulance transfer to the hospital was recommended but refused. She drove herself to the ER where she was noted to be in acute respiratory distress w/ tachypnea, tachycardia and oxygen saturation in 70% on room air. She was noted to be febrile at 37.8. CT of her chest was performed and demonstrated bilateral mutilobar airspace consolidations c/w pneumonia. CT was taken w/ contrast to rule out PE. Because the contrast was suboptimal, PE could not be completely ruled out but no large/central PE were seen. Reactive mediastinal and hilar adenopathy was noted. Labs were remarkable for her CBC not showing a leukocytosis. Her pro-BNP was normal at 181 and her troponin was normal at less than 0.02. LFT and renal function was normal. Her electrolytes showed elevation of her CO2 at 35. Dr. Colette Delcid treated her w/ a continuous DuoNeb treatment x 4 total treatments and gave her corticosteroids (solumedrol 125 mg) and antibiotics (Cefepime and Levaquin). She improved remarkably and did not require NIPPV assistance. She is now admitted to med/surg for continued parenteral antibiotics, aerosolized bronchodilators, and corticosteroids. Patient states that she had her influenza vaccine earlier this but has not had a pneumonia vaccine. Review of Systems Constitutional Reports system reviewed and no additional complaints, except as docu Cardiovascular Reports system reviewed and no additional complaints, except as docu and Reports dyspnea Respiratory Reports chest congestion, Reports cough, Denies hemoptysis, Reports excessive phlegm production, Reports dyspnea and Reports wheezing Gastrointestinal Reports system reviewed and no additional complaints, except as docu Genitourinary Reports system reviewed and no additional complaints, except as docu Musculoskeletal Reports system reviewed and no additional complaints, except as docu Integumentary/Breasts Reports system reviewed and no additional complaints, except as docu Neurologic Reports system reviewed and no additional complaints, except as docu Psychiatric Reports system reviewed and no additional complaints, except as docu Endocrine Reports system reviewed and no additional complaints, except as docu Hematologic/Lymphatic Reports system reviewed and no additional complaints, except as docu Allergic/Immunologic Reports wheezing PFSH Medical History Anemia (Chronic) Fatty infiltration of liver (Chronic) Sleep apnea (Chronic) Atypical nevi (Chronic) Internal hemorrhoids (Chronic) Hernia, diaphragmatic (Chronic) Chronic obstructive pulmonary disease (Chronic) High grade squamous 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) Lymph edema (Chronic) Tobacco use disorder (Chronic) Irregular menses (Chronic) Anemia, iron deficiency (Chronic) Obstructive sleep apnea (Chronic) Hiatal hernia (Chronic) Tobacco abuse (Chronic) GERD (gastroesophageal reflux disease) (Chronic) 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) Aortic stenosis (Chronic 04/17/18) LVH (left ventricular hypertrophy) (Chronic 04/17/18) Lymphedema (Chronic) COPD (chronic obstructive pulmonary disease) (Chronic) Morbid obesity (Chronic) Atypical squamous cells of undetermined significance on cytologic smear of cervix (ASC-US) (Acute) Disease of nail (Acute) Alcohol abuse (Chronic) Dysfunctional uterine bleeding (Resolved) Chronic GERD Diastasis recti Heart murmur Menorrhagia with irregular cycle Morbid obesity with BMI of 50.0-59.9, adult Transfusion history Social History Smoking/Tobacco Use Status: Current every day tobacco type: cigarettes alcohol intake: current alcohol intake frequency: holidays/special occasions only History History 0 Para Hx # Term Pregnancies Multiple births Hx # Pregnancies Ectopic pregnancies AB induced Hx Number of Living Children AB spontaneous Meds Home Medications Medication Instructions Recorded Confirmed Type ferrous sulfate 325 mg PO DAILY PRN 12/07/14 06/12/18 History omeprazole 20 mg PO DAILY 12/07/14 06/12/18 History medroxyprogesterone [Provera] 10 mg PO DAILY #60 tab-cap 11/06/17 06/12/18 Rx albuterol sulfate [ProAir HFA] 2 puff INHALATION Q6H PRN 06/12/18 06/12/18 History food supplemt, lactose-reduced PO TID 06/12/18 History [Ensure] metoprolol tartrate 25 mg PO BID 06/12/18 06/12/18 History prednisone 10 mg PO DAILY 06/12/18 06/12/18 History Allergies Allergy/AdvReac Type Severity Reaction Status Date / Time No Known Allergies Allergy Unverified 06/12/18 17:21 Exam Const General: cooperative and ill appearing acutely Nutritional Appearance: obese morbidly obese Orientation: alert, awake and oriented x3 HENMT Head: normal to inspection and no palpable skull fracture Ears: hearing grossly normal bilaterally and EAC abnormal excessive cerumen bilaterally General nose exam: external nose normal, nares normal and nasal mucous membranes and turbinates normal Face and sinus: normal facial exam Mouth: oral mucosae normal Teeth and gingiva: dentition normal Neck Neck: normal visual inspection, full ROM, no lymphadenopathy and trachea midline Carotids: normal carotid upstroke Lymphatic: no lymphadenopathy noted Resp Effort & Inspection: prolonged expiratory phase Auscultation: bronchovesicular breath sounds bilaterally and wheezes scattered wheezes Cardio Jugular venous pressure: no JVD Palpation: normal PMI Rate: regular rate Rhythm: regular rhythm Heart Sounds: S1 normal, S2 normal and murmur systolic early, II/ and at the base GI Inspection: obesity Palpation: soft and nontender Percussion: normal to percussion Auscultation: normal bowel sounds Skin Rashes: rashes noted (chronic stasis dermatitis w/ lichenification of the pretibial surfaces) Wounds: no wounds Neuro General: alert, awake, oriented x3, moves all extremities and no focal motor deficits Cognition: normal cognition Speech: speech normal Motor: muscle tone normal throughout, strength 5/5 throughout and no movement abnormalities noted Extrem Right lower extremity: edema Details: pitting and 2+ Left lower extremity: edema Details: pitting and 2+ Psych Appearance: grossly normal Mental Status: mental status grossly normal Speech and Movement: speech and movement normal Mood: congruent mood Affect: normal affect Attitude: cooperative Thought Process: normal Thought Content: normal Insight: fair Judgment: fair Results Imaging CT scan - chest: report reviewed (IMPRESSION: 1. Contrast bolus suboptimal for evaluation of pulmonary arteries but no large or central pulmonary embolus is identified. 2. Airspace disease particularly involving the right lung. There is atelectasis greater on the left than the right. Findings are suspicious for pneumonia. Clini) EKG: image reviewed (NSR rate 96 bpm; no ischemic ST-T changes. low voltages across precordial leads) Labs : 06/12/18 17:15 06/12/18 17:15 Laboratory Results - last 24 hr 06/12/18 06/12/18 06/12/18 17:15 17:15 18:00 WBC 8.84 RBC 5.12 Hgb 13.8 Hct 45.4 MCV 88.7 MCH 27.0 MCHC 30.4 L RDW 15.7 H Plt Count 310 MPV 9.9 Immature Gran % 0.8 Neutrophils % 71.2 Lymphocytes % 12.6 Monocytes % 12.6 Eosinophils % 2.5 Basophils % 0.3 Absolute Neutrophils 6.30 Absolute Lymphocytes 1.11 L Absolute Monocytes 1.11 H Absolute Eosinophils 0.22 Absolute Basophils 0.03 Sodium 137 Potassium 3.9 Chloride 96 L Carbon Dioxide 34.5 H Anion Gap 6.5 BUN 3 L Creatinine 0.63 Estimated GFR/1.73 m2 >= 60.00 Glucose 93 Lactate 1.0 Calcium 9.0 Magnesium 1.9 Total Bilirubin 1.0 AST 20 ALT 16 Alkaline Phosphatase 113 Troponin I < 0.02 NT-Pro-B Natriuret Pep 181 Total Protein 9.2 H Albumin 3.0 L Last Vital Signs Temp 37.6 C H 06/12/18 22:00 Pulse 88 06/12/18 22:00 Resp 20 06/12/18 22:00 BP 125/73 06/12/18 22:00 Pulse Ox 95 06/12/18 22:00
[2018-06-13] VITALS (15 sets, daily range): BP systolic 115–143; BP diastolic 58–81; PULSE 59–101; RESP 4–24; TEMP 36.1–36.8; O2SAT 92–96
[2018-06-13] MEDS: methylPREDNISolone SUCC 125 MG VIAL 80 MG IVP ×3 (02:30→19:31)
[2018-06-13] MEDS: Lactated Ringers 1,000 ML 125 ML IV ×2 (05:15→13:48)
[2018-06-13] MEDS: Albuterol/Ipratropium 3 ML UPD VIAL UPD ×4 (05:55→23:04)
[2018-06-13 07:27] LABS: Abs Immature Grans 0.05 k/cumm (0.0-0.09); Absolute Basophil Count 0.02 k/cumm (0.0-0.2); Absolute Lymphocyte Count 0.91 k/cumm (1.2-3.4); Absolute Monocyte Count 0.37 k/cumm (0.11-0.7); Absolute Neutrophil Count 8.05 k/cumm (1.2-6.7); Basophils % 0.2; HCT 43.7 % (36.0-46.0); Immature Grans % 0.5; Lymphocytes % 9.7; Mean Corp. HGB Concentration 29.7 g/dL (32.0-36.0); Mean Corpuscular Hemoglobin 26.7 pg (27.0-33.0); Mean Corpuscular Volume 89.7 fL (80-95); Mean Platelet Volume 9.9 fL (8.0-11.0); Monocytes % 3.9; Neutrophils % 85.7; Platelet Count 307 x1000/uL (130-400); RBC 4.87 m/cumm (4.00-5.20); RBC Distribution Width 15.5 % (11.7-14.6)
[2018-06-13 07:48] LABS: Anion Gap 1.9 mmol/L (3-11); BUN 3 mg/dL (7-18); CO2 37.1 mmol/L (21.0-32.0); CREATININE 0.59 mg/dL (0.55-1.02); Chloride 97 mmol/L (98-107); Glucose 151 mg/dL (70-100); Potassium 4.5 mmol/L (3.5-5.1); Sodium 136 mmol/L (136-145)
[2018-06-13] MEDS: medroxyPROGESTERone 10 MG TAB PO (09:03)
[2018-06-13] MEDS: guaiFENesin 600 MG TABCR 1200 MG PO ×2 (09:04→19:31)
[2018-06-13] MEDS: Omeprazole 20 MG CAPCR PO (09:04)
[2018-06-13] MEDS: Metoprolol 25 MG TAB PO ×2 (09:04→19:31)
[2018-06-13] MEDS: Benzonatate 200 MG CAP PO ×3 (09:04→19:32)
--- NOTE | 2018-06-13 10:34 | PDOC.CMIN ---
- If Service Date Differs Date of service: 06/13/18 Time of Service: 10:34 Care Management Initial Assess REASON FOR HOSPITALIZATION:: Acute pneumonitis PAST MEDICAL HISTORY/PAST SURGICAL HISTORY:: Anemia (Chronic). Fatty infiltration of liver (Chronic). Sleep apnea (Chronic). Atypical nevi (Chronic). Internal hemorrhoids (Chronic). Hernia, diaphragmatic (Chronic). Chronic obstructive pulmonary disease (Chronic). 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 Lymph edema (Chronic). Tobacco use disorder (Chronic). Irregular menses (Chronic). Anemia, iron deficiency (Chronic). Obstructive sleep apnea (Chronic). Hiatal hernia (Chronic). Tobacco abuse (Chronic). GERD (gastroesophageal reflux disease) (Chronic). 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 Aortic stenosis (Chronic 04/17/18). LVH (left ventricular hypertrophy) (Chronic 04/17/18). Lymphedema (Chronic). COPD (chronic obstructive pulmonary disease) (Chronic). Morbid obesity (Chronic). Atypical squamous cells of undetermined significance on cytologic smear of cervix (ASC-US) (Acute). Disease of nail (Acute). Alcohol abuse (Chronic). Dysfunctional uterine bleeding (Resolved). Chronic GERD. Diastasis recti. Heart murmur. Menorrhagia with irregular cycle. Morbid obesity with BMI of 50.0-59.9, adult. Transfusion history PREVIOUS FUNCTIONAL STATUS/SOCIAL/FAMILY SUPPORTS:: Kenna resides with her Yehuda in [place], and her sister and her sisters boyfriend resides with them as well. Kenna is independent at baseline, she states that she manages her ADL's. Kenna does not drive, and states that she depends on her sister Pau for transportation. CURRENT FUNCTIONAL STATUS:: Currently Kenna is sitting up in her chair when this continuity writer visits. She is pleasant and receptive to discussion. ADVANCE DIRECTIVES:: None on file Has patient been provided with information about the portal?: Yes Did the patient sign up for the portal?: No CODE STATUS:: Full Code INSURANCE COVERAGE / FINANCIAL ISSUES:: Medicaid CURRENT HOME/COMMUNITY SERVICES/EQUIPMENT:: Currently Kenna has no services in the community. Kenna states that she has a CPAP machine at home, and that this was distributed to her when she was a resident of [place]. Kenna states that she has been paying for her own tubing and would like assistance with transitioning to a company in [place]. CM to speak with RT Candida, in regards to the above. PRIMARY CARE PHYSICIAN:: Jeremy Camejo POTENTIAL DISCHARGE NEEDS:: F/U appointment with PCP PATIENT/FAMILY EDUCATION NEEDS:: Review DC instructions, any limitations, and ongoing DC planning discussion. Discuss 'Ask Me Three' ANTICIPATED BARRIERS TO DISCHARGE:: None identified at this time TRANSPORTATION:: Via private vehicle with sister Pau PLAN:: Kenna will return home once medically cleared. She will F/U with PCP and plan of care as prescribed. CM notified RT Candida, of Kenna's need for a DME locally for CPAP supplies, and Candida will assist with this. Kenna's sister Pau will transport when ready.
[2018-06-13] MEDS: Normal Saline Flush 10 ML SYR IVP ×2 (11:33→15:56)
--- NOTE | 2018-06-13 14:42 | INITIAL_ITS ---
- If Service Date Differs Date of service: 06/13/18 Time of Service: 10:34 Care Management Initial Assess REASON FOR HOSPITALIZATION:: Acute pneumonitis PAST MEDICAL HISTORY/PAST SURGICAL HISTORY:: Anemia (Chronic). Fatty infiltration of liver (Chronic). Sleep apnea (Chronic). Atypical nevi (Chronic). Internal hemorrhoids (Chronic). Hernia, diaphragmatic (Chronic). Chronic obstructive pulmonary disease (Chronic). 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 Lymph edema (Chronic). Tobacco use disorder (Chronic). Irregular menses (Chronic). Anemia, iron deficiency (Chronic). Obstructive sleep apnea (Chronic). Hiatal hernia (Chronic). Tobacco abuse (Chronic). GERD (gastroesophageal reflux disease) (Chronic). 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 Aortic stenosis (Chronic 04/17/18). LVH (left ventricular hypertrophy) (Chronic 04/17/18). Lymphedema (Chronic). COPD (chronic obstructive pulmonary disease) (Chronic). Morbid obesity (Chronic). Atypical squamous cells of undetermined significance on cytologic smear of cervix (ASC- [place]) (Acute). Disease of nail (Acute). Alcohol abuse (Chronic). Dysfunctional uterine bleeding (Resolved). Chronic GERD. Diastasis recti. Heart murmur. Menorrhagia with irregular cycle. Morbid obesity with BMI of 50.0-59.9, adult. Transfusion history PREVIOUS FUNCTIONAL STATUS/SOCIAL/FAMILY SUPPORTS:: Kenna resides with her Yehuda in [place], and her sister and her sisters boyfriend resides with them as well. Kenna is independent at baseline, she states that she manages her ADL's. Kenna does not drive, and states that she depends on her sister Pau for transportation. CURRENT FUNCTIONAL STATUS:: Currently Kenna is sitting up in her chair when this typewriter assembler visits. She is pleasant and receptive to discussion. ADVANCE DIRECTIVES:: None on file Has patient been provided with information about the portal?: Yes Did the patient sign up for the portal?: No CODE STATUS:: Full Code INSURANCE COVERAGE / FINANCIAL ISSUES:: Medicaid CURRENT HOME/COMMUNITY SERVICES/EQUIPMENT:: Currently Kenna has no services in the community. Kenna states that she has a CPAP machine at home, and that this was distributed to her when she was a resident of [place]. Kenna states that she has been paying for her own tubing and would like assistance with transitioning to a company in [place]. CM to speak with RT Candida, in regards to the above. PRIMARY CARE PHYSICIAN:: Jeremy Camejo POTENTIAL DISCHARGE NEEDS:: F/U appointment with PCP PATIENT/FAMILY EDUCATION NEEDS:: Review DC instructions, any limitations, and ongoing DC planning discussion. Discuss 'Ask Me Three' ANTICIPATED BARRIERS TO DISCHARGE:: None identified at this time TRANSPORTATION:: Via private vehicle with sister Pau PLAN:: Kenna will return home once medically cleared. She will F/U with PCP and plan of care as prescribed. CM notified RT Candida, of Kenna's need for a DME locally for CPAP supplies, and Candida will assist with this. Kenna's sister Pau will transport when ready.
--- NOTE | 2018-06-13 15:15 | PGE_ITS ---
Date of Service Date of service: 06/13/18 Time of Service: 15:31 Assessment and Plan (1) Acute pneumonitis: Current visit: Yes Status: Acute continue Levaquin 750 mg iv daily along w/ iv corticosteroids, aerosolized bronchodilators. She should receive the Prevnar 13 prior to discharge home then pneumovax in 6 to 12 months later. She needs to quit smoking and I counseled her on the same, though she has cut down from 1 pack to 1/2 a pack she is not ready to quit at this moment. Will continue to admitting counselor and assess readiness to quit. (2) Sleep apnea: Start date: 06/13/18 Start time: 15:09 Current visit: Yes Status: Chronic Uses CPAP at night and currently set up for one while in the hospital (3) Tobacco abuse: Start date: 06/13/18 Start time: 15:12 Current visit: Yes Status: Chronic 1/2 pack per day smoker who is currently not ready to quite. (4) Lymphedema: Start date: 06/13/18 Start time: 15:12 Current visit: No Status: Chronic Improving. Pt states they have gone down a lot. no edema at this time. (5) Morbid obesity: Start date: 06/13/18 Start time: 15:13 Current visit: Yes Status: Chronic (6) Obstructive sleep apnea: Start date: 06/13/18 Start time: 15:21 Current visit: Yes Status: Chronic (7) GERD (gastroesophageal reflux disease): Start date: 06/13/18 Start time: 15:23 Current visit: Yes Status: Chronic Currently on omeprazole 20 mg, changed to protonix IVP 40 mg BID as patient is receiving high doses steroids IV (8) Acute exacerbation of COPD with asthma: Start date: 06/13/18 Start time: 15:27 Current visit: Yes Status: Acute likely due to pneumonitis, will continue treatment with levaquin, steroids IV continue monitoring and wean down and continue nebs. (9) Headache: Start date: 06/13/18 Start time: 15:31 Current visit: Yes Status: Acute C/o headache today, tylenol 1000 mg po ordered. Subjective Patient reports: feels better Interval history since last seen: 42 y.o. morbidly obese female with hx of smoking, COPD, chronic lymphedema, GERD, Iron deficiency anemia, presenting with cough for last couple weeks. In Apr she was treated fir bronchitis on zithromax. Over last several days cough has been worsening accompained with wheezing, no fever and minimal sputum. A CXR earlier this week done by her PCP revealed, limited exam with questionable mild CHF. She followed up with her PCP yesterday and noted to hypoxemic in mid 70%. She refused transport from PCP and drove herself to the ER where she was noted to be in acute respiratory distress. CT of her chest showed bilateral multiloblar airspace consolidations with pneumonia. She was admitted to med surg for parentaeral antibiotics, aerosolized bronchodilators, corticosteroids. Today she states she is feeling better, breathing easier. She does endorse not sleeping well last night as she could not get comfortable. she c/o headache and said that if she were to sleep the cpap machine would have worked out. She stated I just want to get some sleep. I ordered her tylenol 1000 mg for her headache, and benadryl for sleep. she does not appear SOB and denies it with excertion. Refusing to quite smoking at this time. Exam Const General: cooperative and no acute distress Other: obese Neck Lymphatic: no lymphadenopathy noted and no lymphedema noted Chest Chest: normal inspection of the chest Resp Effort & Inspection: normal respiratory effort and able to speak in complete sentences Auscultation: crackles and wheezes Other: wheezes that patient states are better Cardio Rate: regular rate Rhythm: regular rhythm Heart Sounds: S1 normal and S2 normal GI Inspection: normal to inspection Skin General skin exam: no rashes or lesions noted Neuro General: alert, awake and oriented x3 Extrem General: normal to inspection Objective Objective Clinical Data: Abnormal lab results 06/12/18 06/12/18 06/13/18 Range/Units 17:15 17:15 06:36 MCH (27.0-33.0) pg MCHC 30.4 L (32.0-36.0) g/dL RDW 15.7 H (11.7-14.6) % Absolute Neutrophils (1.2-6.7) k/cumm Absolute Lymphocytes 1.11 L (1.2-3.4) k/cumm Absolute Monocytes 1.11 H (0.11-0.7) k/cumm Chloride 96 L 97 L (98-107) mmol/L Carbon Dioxide 34.5 H 37.1 H (21.0-32.0) mmol/L Anion Gap 1.9 L (3-11) mmol/L BUN 3 L 3 L (7-18) mg/dL Glucose 151 H (70-100) mg/dL Total Protein 9.2 H (6.4-8.2) g/dL Albumin 3.0 L (3.4-5.0) g/dL 06/13/18 Range/Units 06:36 MCH 26.7 L (27.0-33.0) pg MCHC 29.7 L (32.0-36.0) g/dL RDW 15.5 H (11.7-14.6) % Absolute Neutrophils 8.05 H (1.2-6.7) k/cumm Absolute Lymphocytes 0.91 L (1.2-3.4) k/cumm Absolute Monocytes (0.11-0.7) k/cumm Chloride (98-107) mmol/L Carbon Dioxide (21.0-32.0) mmol/L Anion Gap (3-11) mmol/L BUN (7-18) mg/dL Glucose (70-100) mg/dL Total Protein (6.4-8.2) g/dL Albumin (3.4-5.0) g/dL Vital Signs Temperature 36.1 C L 06/13/18 11:45 Temperature Source Tympanic 06/13/18 11:45 Pulse 75 06/13/18 13:48 Pulse Rhythm Regular 06/13/18 08:10 Pulse 95 H 06/12/18 21:30 Respiratory Rate 20 06/13/18 11:45 Respiratory Effort 06/13/18 08:10 Respiratory Depth Normal 06/13/18 08:10 Respiratory Pattern Normal 06/13/18 08:10 Blood Pressure 115/58 L 06/13/18 11:45 Blood Pressure Mean 78 06/12/18 20:15 Pulse Oximetry 95 06/13/18 11:45 Oxygen Delivery Method Nasal Cannula 06/13/18 11:45 Oxygen Flow Rate 4 06/13/18 11:45 Pain Level 0 06/13/18 11:45 Intake & Output 06/12/18 06/13/18 06/13/18 23:59 11:59 23:59 Intake Total 1250 / 1250 2006.667 / 3126.667 1120 / 3126.667 Output Total 800 / 800 1800 / 1800 Balance 450 / 450 206.667 / 7467.224 5070 / 1326.667 Weight 172.365 kg 185.4 kg Intake: IV 1250 / 1250 926.667 / 0134.047 5293 / 1926.667 Oral 1080 / 1200 120 / 1200 Output: Urine 800 / 800 1800 / 1800 Other: Urine Color Dark Mary Dark Mary Urine Appearance Clear Clear Voiding Methods Bedside Commode Toilet Laboratory Results WBC 9.40 k/cumm (4.4-10.8) 06/13/18 06:36 RBC 4.87 m/cumm (4.00-5.20) 06/13/18 06:36 Hgb 13.0 g/dL (12.0-15.5) 06/13/18 06:36 Hct 43.7 % (36.0-46.0) 06/13/18 06:36 MCV 89.7 fL (80-95) 06/13/18 06:36 MCH 26.7 pg (27.0-33.0) L 06/13/18 06:36 MCHC 29.7 g/dL (32.0-36.0) L 06/13/18 06:36 RDW 15.5 % (11.7-14.6) H 06/13/18 06:36 Plt Count 307 x1000/uL (130-400) 06/13/18 06:36 MPV 9.9 fL (8.0-11.0) 06/13/18 06:36 Immature Gran % 0.5 06/13/18 06:36 Neutrophils % 85.7 06/13/18 06:36 Lymphocytes % 9.7 06/13/18 06:36 Monocytes % 3.9 06/13/18 06:36 Eosinophils % 0.0 06/13/18 06:36 Basophils % 0.2 06/13/18 06:36 Absolute Neutrophils 8.05 k/cumm (1.2-6.7) H 06/13/18 06:36 Absolute Lymphocytes 0.91 k/cumm (1.2-3.4) L 06/13/18 06:36 Absolute Monocytes 0.37 k/cumm (0.11-0.7) 06/13/18 06:36 Absolute Eosinophils 0.00 k/cumm (0.0-0.7) 06/13/18 06:36 Absolute Basophils 0.02 k/cumm (0.0-0.2) 06/13/18 06:36 Sodium 136 mmol/L (136-145) 06/13/18 06:36 Potassium 4.5 mmol/L (3.5-5.1) 06/13/18 06:36 Chloride 97 mmol/L (98-107) L 06/13/18 06:36 Carbon Dioxide 37.1 mmol/L (21.0-32.0) H 06/13/18 06:36 Anion Gap 1.9 mmol/L (3-11) L 06/13/18 06:36 BUN 3 mg/dL (7-18) L 06/13/18 06:36 Creatinine 0.59 mg/dL (0.55-1.02) 06/13/18 06:36 Estimated GFR/1.73 m2 >= 60.00 (mL/min/1.73m2) 06/13/18 06:36 Glucose 151 mg/dL (70-100) H 06/13/18 06:36 Lactate 1.0 mmol/l (0.6-1.4) 06/12/18 18:00 Calcium 9.0 mg/dL (8.5-10.1) 06/13/18 06:36 Magnesium 2.0 mg/dL (1.8-2.4) 06/13/18 06:36 Total Bilirubin 1.0 mg/dL (0.2-1.0) 06/12/18 17:15 AST 20 U/L (15-37) 06/12/18 17:15 ALT 16 U/L (12-78) 06/12/18 17:15 Alkaline Phosphatase 113 U/L (46-116) 06/12/18 17:15 Troponin I < 0.02 ng/mL (0.00-0.06) 06/12/18 17:15 NT-Pro-B Natriuret Pep 181 pg/mL (-299) 06/12/18 17:15 Total Protein 9.2 g/dL (6.4-8.2) H 06/12/18 17:15 Albumin 3.0 g/dL (3.4-5.0) L 06/12/18 17:15
--- NOTE | 2018-06-13 16:33 | SAO2N_ITS ---
SAO2 with Exercise Patient:TYLERTROY Date/Time: 06/19/18 0649 [id number] Tech: KL
[2018-06-13] MEDS: Pantoprazole 40 MG VIAL IVP (19:31)
[2018-06-13] MEDS: LEVOFLOXACIN 750 MG/150 ML BAG 100 MG IVPB (19:32)
--- NOTE | 2018-06-13 19:43 | NUR.NOTE ---
Nursing Note: Report received from off-going nurse, patient is currently up to bedside chair, no report of pain or discomfort at this time.
[2018-06-13] MEDS: Enoxaparin 40 MG/0.4 ML SYR SC (21:35)
[2018-06-13] MEDS: diphenhydrAMINE 25 MG CAP 50 MG PO (21:35)
[2018-06-14] VITALS (11 sets, daily range): BP systolic 120–148; BP diastolic 68–76; PULSE 54–78; RESP 4–28; TEMP 36.3–37.1; O2SAT 87–98
[2018-06-14] MEDS: methylPREDNISolone SUCC 125 MG VIAL 80 MG IVP ×3 (01:03→17:31)
[2018-06-14] MEDS: Albuterol/Ipratropium 3 ML UPD VIAL UPD ×3 (05:11→21:46)
[2018-06-14 07:32] LABS: Abs Immature Grans 0.04 k/cumm (0.0-0.09); Absolute Basophil Count 0.01 k/cumm (0.0-0.2); Absolute Lymphocyte Count 0.82 k/cumm (1.2-3.4); Absolute Neutrophil Count 10.12 k/cumm (1.2-6.7); Basophils % 0.1; HCT 45.6 % (36.0-46.0); HGB 13.3 g/dL (12.0-15.5); Immature Grans % 0.3; Lymphocytes % 7.1; Mean Corp. HGB Concentration 29.2 g/dL (32.0-36.0); Mean Corpuscular Hemoglobin 26.7 pg (27.0-33.0); Mean Corpuscular Volume 91.6 fL (80-95); Mean Platelet Volume 9.9 fL (8.0-11.0); Monocytes % 4.4; Neutrophils % 88.1; Platelet Count 312 x1000/uL (130-400); RBC 4.98 m/cumm (4.00-5.20); RBC Distribution Width 15.5 % (11.7-14.6); White Blood Cell Count 11.49 k/cumm (4.4-10.8)
[2018-06-14 07:37] LABS: Absolute Monocyte Count 0.51 k/cumm (0.11-0.7)
[2018-06-14] MEDS: Benzonatate 200 MG CAP PO ×3 (07:48→21:39)
[2018-06-14] MEDS: Pantoprazole 40 MG VIAL IVP ×2 (07:48→21:44)
[2018-06-14] MEDS: Metoprolol 25 MG TAB PO ×2 (07:48→21:40)
[2018-06-14 07:49] LABS: Anion Gap 0.8 mmol/L (3-11); BUN 4 mg/dL (7-18); CO2 37.2 mmol/L (21.0-32.0); CREATININE 0.56 mg/dL (0.55-1.02); Calcium 9.1 mg/dL (8.5-10.1); Chloride 97 mmol/L (98-107); Glucose 182 mg/dL (70-100); Potassium 4.9 mmol/L (3.5-5.1); Sodium 135 mmol/L (136-145)
[2018-06-14] MEDS: guaiFENesin 600 MG TABCR 1200 MG PO ×2 (07:49→21:39)
[2018-06-14] MEDS: Normal Saline Flush 10 ML SYR IVP ×4 (07:49→21:45)
[2018-06-14] MEDS: medroxyPROGESTERone 10 MG TAB PO (07:49)
--- NOTE | 2018-06-14 13:36 | PDOC.CMPRO ---
- If Service Date Differs Date of service: 06/14/18 Time of Service: 13:36 Care Management Progress Note S/O: Kenna is sitting up in her chair when this medical technical writer visits this morning. She is pleasant and receptive to discussion. Kenna continues to have an oxygen requirement at this time. She states that her night was alright and easily engages in conversation. CM discussed that RT Candida, would be working with Kenna regarding her CPAP machine and supplies. No change in DC plan at this time. A: 42 y/o female admitted 06/12/18 for Pneumonia, COPD Exacerbation. P: Kenna will return home with no anticipated services once medically cleared. She will F/U with PCP and plan of care as prescribed. Kenna's sister to transport when medically ready.
--- NOTE | 2018-06-14 13:54 | CMPROGNOTE_ITS ---
- If Service Date Differs Date of service: 06/14/18 Time of Service: 13:36 Care Management Progress Note S/O: Kenna is sitting up in her chair when this technical proposal writer visits this morning. She is pleasant and receptive to discussion. Kenna continues to have an oxygen requirement at this time. She states that her night was alright and easily engages in conversation. CM discussed that RT Candida, would be working with Kenna regarding her CPAP machine and supplies. No change in DC plan at this time. A: 42 y/o female admitted 06/12/18 for Pneumonia, COPD Exacerbation. P: Kenna will return home with no anticipated services once medically cleared. She will F/U with PCP and plan of care as prescribed. Kenna's sister to transport when medically ready.
--- NOTE | 2018-06-14 15:10 | PGE_ITS ---
Date of Service Date of service: 06/14/18 Time of Service: 15:14 Assessment and Plan (1) Acute pneumonitis: Start date: 06/14/18 Start time: 15:04 Current visit: Yes Status: Acute continue Levaquin 750 mg iv daily along w/ iv corticosteroids, aerosolized bronchodilators. Day #2 of Levaquin, Repeat CXR as last one was on 06/09 and continue to monitor (2) Sleep apnea: Start date: 06/14/18 Start time: 15:05 Current visit: Yes Status: Chronic Uses CPAP at night, her sleep study was [facility] in [place] will request records from there (3) Tobacco abuse: Start date: 06/14/18 Current visit: Yes Status: Chronic not ready to quite, i discussed at length quitting options. (4) Lymphedema: Start date: 06/14/18 Start time: 15:07 Current visit: No Status: Chronic improved. will continue to monitor. (5) Morbid obesity: Start date: 06/14/18 Start time: 15:07 Current visit: Yes Status: Chronic Diet changed to low sodium low k+ (6) GERD (gastroesophageal reflux disease): Start date: 06/14/18 Start time: 15:08 Current visit: Yes Status: Chronic protonix IVP 40 mg BID as patient is receiving high doses steroids IV (7) Acute exacerbation of COPD with asthma: Start date: 06/14/18 Start time: 15:08 Current visit: Yes Status: Acute likely due to pneumonitis, will continue treatment with levaquin, steroids IV continue monitoring and wean down and continue nebs. 95% on 3 L, started spirivia, ICS and exercise oximetery ordered CXR one has not been done since and will follow up with results (8) Rash: Start date: 06/14/18 Start time: 15:04 Current visit: Yes Status: Acute clomitrozole 1% cream for rash under gluteal folds and breasts. Subjective Patient reports: feels better Interval history since last seen: Today she states she is feeling more tired which she attributes to lack of sleep last night. I did order her benadryl prn for sleep but she did not know to ask for it. She does endorse breathing easier. Her lungs are sounding better and wheezing is minimal. I have repeated a CXR, results pending, I will keep her on solumedrol 80 until tomorrow and reevaluate, I have dcd her fluids. She is most comfortable sitting up in a chair and thinks she will be able to sleep well tonight in the chair. Her sleep study [facility] at [facility] in [place] I have asked nursing to retrieve chart. Exam Const General: cooperative and no acute distress [facility] Head: normal to inspection Eyes General: appearance normal, both eyes and all related structures Neck Lymphatic: no lymphadenopathy noted and no lymphedema noted Chest Chest: normal inspection of the chest Resp Effort & Inspection: normal respiratory effort and able to speak in complete sentences Auscultation: crackles, rhonchi and wheezes (minimal wheezes with improvement) expiratory wheezes and lower bilaterally Cardio Rate: regular rate Rhythm: regular rhythm Heart Sounds: S1 normal and S2 normal GI Inspection: normal to inspection Skin Other: rash under breasts and gluteal folds Neuro General: alert, awake and oriented x3 Extrem General: normal to inspection Objective Objective Clinical Data: Abnormal lab results 06/14/18 06/14/18 Range/Units 07:00 07:00 WBC 11.49 H (4.4-10.8) k/cumm MCH 26.7 L (27.0-33.0) pg MCHC 29.2 L (32.0-36.0) g/dL RDW 15.5 H (11.7-14.6) % Absolute Neutrophils 10.12 H (1.2-6.7) k/cumm Absolute Lymphocytes 0.82 L (1.2-3.4) k/cumm Sodium 135 L (136-145) mmol/L Chloride 97 L (98-107) mmol/L Carbon Dioxide 37.2 H (21.0-32.0) mmol/L Anion Gap 0.8 L (3-11) mmol/L BUN 4 L (7-18) mg/dL Glucose 182 H (70-100) mg/dL Vital Signs Temperature 36.6 C 06/14/18 12:56 Temperature Source Tympanic 06/14/18 12:56 Pulse 73 06/14/18 12:56 Pulse Rhythm Regular 06/14/18 07:54 Pulse 95 H 06/12/18 21:30 Respiratory Rate 19 06/14/18 12:56 Respiratory Effort 06/14/18 07:54 Respiratory Depth Normal 06/14/18 07:54 Respiratory Pattern Normal 06/14/18 07:54 Blood Pressure 146/72 H 06/14/18 12:56 Blood Pressure Mean 78 06/12/18 20:15 Pulse Oximetry 98 06/14/18 12:56 Oxygen Delivery Method Room Air 06/14/18 12:56 Oxygen Flow Rate 0 06/14/18 12:56 Pain Level 0 06/14/18 07:40 Intake & Output 06/13/18 06/14/18 06/14/18 23:59 11:59 23:59 Intake Total 1635 / 3641.667 360 / 840 480 / 840 Output Total 600 / 2400 Balance 1035 / 1241.667 360 / 840 480 / 840 Intake: IV 1275 / 2201.667 Oral 360 / 1440 360 / 840 480 / 840 Output: Urine 600 / 2400 Other: Urine Color Yellow Urine Appearance Clear Comment reports voiding w/o difficulty Voiding Methods Bedside Commode Laboratory Results WBC 11.49 k/cumm (4.4-10.8) H 06/14/18 07:00 RBC 4.98 m/cumm (4.00-5.20) 06/14/18 07:00 Hgb 13.3 g/dL (12.0-15.5) 06/14/18 07:00 Hct 45.6 % (36.0-46.0) 06/14/18 07:00 MCV 91.6 fL (80-95) 06/14/18 07:00 MCH 26.7 pg (27.0-33.0) L 06/14/18 07:00 MCHC 29.2 g/dL (32.0-36.0) L 06/14/18 07:00 RDW 15.5 % (11.7-14.6) H 06/14/18 07:00 Plt Count 312 x1000/uL (130-400) 06/14/18 07:00 MPV 9.9 fL (8.0-11.0) 06/14/18 07:00 Immature Gran % 0.3 06/14/18 07:00 Neutrophils % 88.1 06/14/18 07:00 Lymphocytes % 7.1 06/14/18 07:00 Monocytes % 4.4 06/14/18 07:00 Eosinophils % 0.0 06/14/18 07:00 Basophils % 0.1 06/14/18 07:00 Absolute Neutrophils 10.12 k/cumm (1.2-6.7) H 06/14/18 07:00 Absolute Lymphocytes 0.82 k/cumm (1.2-3.4) L 06/14/18 07:00 Absolute Monocytes 0.51 k/cumm (0.11-0.7) 06/14/18 07:00 Absolute Eosinophils 0.00 k/cumm (0.0-0.7) 06/14/18 07:00 Absolute Basophils 0.01 k/cumm (0.0-0.2) 06/14/18 07:00 Sodium 135 mmol/L (136-145) L 06/14/18 07:00 Potassium 4.9 mmol/L (3.5-5.1) 06/14/18 07:00 Chloride 97 mmol/L (98-107) L 06/14/18 07:00 Carbon Dioxide 37.2 mmol/L (21.0-32.0) H 06/14/18 07:00 Anion Gap 0.8 mmol/L (3-11) L 06/14/18 07:00 BUN 4 mg/dL (7-18) L 06/14/18 07:00 Creatinine 0.56 mg/dL (0.55-1.02) 06/14/18 07:00 Estimated GFR/1.73 m2 >= 60.00 (mL/min/1.73m2) 06/14/18 07:00 Glucose 182 mg/dL (70-100) H 06/14/18 07:00 Lactate 1.0 mmol/l (0.6-1.4) 06/12/18 18:00 Calcium 9.1 mg/dL (8.5-10.1) 06/14/18 07:00 Magnesium 2.0 mg/dL (1.8-2.4) 06/14/18 07:00 Total Bilirubin 1.0 mg/dL (0.2-1.0) 06/12/18 17:15 AST 20 U/L (15-37) 06/12/18 17:15 ALT 16 U/L (12-78) 06/12/18 17:15 Alkaline Phosphatase 113 U/L (46-116) 06/12/18 17:15 Troponin I < 0.02 ng/mL (0.00-0.06) 06/12/18 17:15 NT-Pro-B Natriuret Pep 181 pg/mL (-299) 06/12/18 17:15 Total Protein 9.2 g/dL (6.4-8.2) H 06/12/18 17:15 Albumin 3.0 g/dL (3.4-5.0) L 06/12/18 17:15
--- NOTE | 2018-06-14 16:36 | DI.RAD_ITS ---
SYMPTOM/DIAGNOSIS: PNEUMONIA PA AND LATERAL CHEST: Comparison is made with 09 June 2018 The exam was limited by the patient's body habitus. The heart is enlarged. There are increased patchy densities seen in the left upper lobe. There is also a question of mildly increased densities at both bases. No effusions are seen. IMPRESSION: Left upper lobe infiltrate, question of additional basilar infiltrates vs atelectasis.
--- NOTE | 2018-06-14 16:56 | DI.VRAD_ITS ---
EXAM: XR Chest, 2 Views EXAM DATE/TIME: 06/14/2018 2:20 PM CLINICAL HISTORY: 42 years old, female; Signs and symptoms; Other: Pneumonia TECHNIQUE: XR of the chest, 2 views. COMPARISON: CR XR CHEST 2V PA LATERAL 06/09/2018 1:03 PM FINDINGS: Lungs: Small bilateral airspace opacities, potentially more conspicuous in the left upper lobe. Pleural space: No pleural effusion or pneumothorax. Heart/Mediastinum: Cardiac and mediastinal silhouettes are unremarkable. Bones/joints: No acute osseus lesion or fracture. IMPRESSION: Small bilateral airspace opacities, potentially more conspicuous in the left upper lobe when compared with prior examination. Findings could represent atelectasis or pneumonia. Dictated and Authenticated by: Mann Fernandez MD. Ordering:MEENU Ramirez MD
[2018-06-14 17:27] LABS: Streptococcus Pneumoniae Ag, U Negative (Negative)
[2018-06-14] MEDS: diphenhydrAMINE 25 MG CAP 50 MG PO (21:40)
[2018-06-14] MEDS: Enoxaparin 40 MG/0.4 ML SYR SC (21:44)
[2018-06-14] MEDS: Clotrimazole 1% 15 GM TUBE TP (21:47)
[2018-06-14] MEDS: LEVOFLOXACIN 750 MG/150 ML BAG 100 MG IVPB (21:55)
[2018-06-15] VITALS (8 sets, daily range): BP systolic 137–168; BP diastolic 74–90; PULSE 55–80; RESP 4–21; TEMP 36.2–37.6; O2SAT 92–97
[2018-06-15] MEDS: methylPREDNISolone SUCC 125 MG VIAL 80 MG IVP ×2 (02:19→10:51)
[2018-06-15] MEDS: Normal Saline Flush 10 ML SYR IVP ×4 (02:20→19:28)
[2018-06-15] MEDS: Albuterol/Ipratropium 3 ML UPD VIAL UPD ×4 (05:54→23:22)
[2018-06-15 07:36] LABS: Abs Immature Grans 0.03 k/cumm (0.0-0.09); Anion Gap -1.4 mmol/L (3-11); BUN 7 mg/dL (7-18); CO2 39.4 mmol/L (21.0-32.0); Calcium 9.2 mg/dL (8.5-10.1); Chloride 95 mmol/L (98-107); Glucose 189 mg/dL (70-100); HCT 43.7 % (36.0-46.0); HGB 12.9 g/dL (12.0-15.5); Mean Corp. HGB Concentration 29.5 g/dL (32.0-36.0); Mean Corpuscular Hemoglobin 26.8 pg (27.0-33.0); Mean Corpuscular Volume 90.7 fL (80-95); Mean Platelet Volume 9.9 fL (8.0-11.0); Platelet Count 292 x1000/uL (130-400); Potassium 4.7 mmol/L (3.5-5.1); RBC 4.82 m/cumm (4.00-5.20); RBC Distribution Width 15.2 % (11.7-14.6); Sodium 133 mmol/L (136-145); White Blood Cell Count 11.24 k/cumm (4.4-10.8)
[2018-06-15 08:06] LABS: Absolute Monocyte Count 0.45 k/cumm (0.11-0.7); Absolute Neutrophil Count 9.89 k/cumm (1.2-6.7); Atypical Lymphocytes % 1
[2018-06-15 08:07] LABS: Anisocytosis 1+; Basophilic Stippling Present; Diff Comment Manual Differential; Hypochromasia 1+; Polychromasia Present; Stomatocytes 2+
[2018-06-15] MEDS: Benzonatate 200 MG CAP PO ×3 (08:33→19:14)
[2018-06-15] MEDS: guaiFENesin 600 MG TABCR 1200 MG PO ×2 (08:34→19:14)
[2018-06-15] MEDS: Metoprolol 25 MG TAB PO ×2 (08:34→19:14)
[2018-06-15] MEDS: medroxyPROGESTERone 10 MG TAB PO (08:34)
[2018-06-15] MEDS: Pantoprazole 40 MG VIAL IVP (08:34)
[2018-06-15] MEDS: Clotrimazole 1% 15 GM TUBE TP ×2 (08:34→19:15)
--- NOTE | 2018-06-15 11:08 | PT.INIE ---
Date of service: 06/15/18 Time of Service: 10:30 PT Notes Inpatient Physical Therapy Evaluation Date: 06/15/18 Referring Doctor: Ashley Cancino NP PT Orders: PT CONSULT: weakness Precautions: Standard Patient Profile/Admitting Diagnosis: Presented to ER on 06/12/18 in acute respiratory distress with tachypnea, O2 sat of 70% on room air. Differential diagnosis revealed acute pneumonia with COPD exacerbation, on top of other chronic multiple comoridities to include morbid obesity and LE lymphedema. 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) Aortic stenosis (Chronic 04/17/18) LVH (left ventricular hypertrophy) (Chronic 04/17/18) Lymphedema (Chronic) COPD (chronic obstructive pulmonary disease) (Chronic) Morbid obesity (Chronic) Atypical squamous cells of undetermined significance on cytologic smear of cervix (ASC-US) (Acute) Disease of nail (Acute) Alcohol abuse (Chronic) Dysfunctional uterine bleeding (Resolved) Chronic GERD Diastasis recti Heart murmur Menorrhagia with irregular cycle Morbid obesity with BMI of 50.0-59.9, adult Transfusion history Social History Smoking/Tobacco Use Status: Current every day tobacco type: cigarettes alcohol intake: current alcohol intake frequency: holidays/special occasions only Home Situation: Lives in a private home with her , father, brother and brother's girlfriend. Does not work. She lives on main floor of home, with no stairs to enter. She does not drive. Premorbid level of function: I, WNL, no AD, No O2 support. Current Functional Limitations: Dependent on walker for short distance ambulation due to SOB, and weakness with struggle to move her heavy LE's. Equipment Owned/DME: Walker Subjective: Feeling frustrated with her SOB, as she is anxious to return home. Reports that as of recent she has had to use her 's walker to get around the home, due to the strain of her heavy legs and SOB. She is experiencing a lot of heart burn since her coughing over the past few weeks. Objective: General Observation: Found sitting, watching tv. NC O2 of 3L. Good color. Morbidly obese. Poor hygeine, and skin dryness and discoloration of LE's due to her weight and lymphedema. Mental Status: A & O x3 Pain: 0/10 Vital Signs: BP 132/81, HR 55, O2 sat on 3L sitting 95%. O2 drops to 88% after 50 ft of ambulation, 0 L O2. Quickly recovers to 97% with sitting post 3 minutes, at 2L O2. Decide with RNAnton, to trial 2L and monitor O2 sats. ROM: Right Upper Extremity: WNL Left Upper Extremity: WNL Right Lower Extremity: Grossly WFL, with hip limitations related to abdominal panus Left Lower Extremity: Grossly WFL, with hip limitations related to abdominal panus. Strength: Right Upper Extremity: Grossly 5/5 Left Upper Extremity: Grossly 5/5 B Lower Extremities: Knee and below grossly 5/5, difficulty testing hips due to mobility limitations of abdomen, but demonstrating functional movement for basic ambulation and standing activities. Sensation: Not assessed Bed Mobility/Transfers: Sit <> stand I Gait: RW, 50 ft, distant supervision Balance: Static Sitting: Good Dynamic Sitting: Good Static Standing: Good Dynamic Standing: Good Special Tests: Mobility Limitations Standardized Measure [facility] AM-PAC 6 clicks Basic Mobility Inpatient Short Form: Raw Score: 18 Standardized Score: CMS Score: 46% disability CMS Modifier: Treatment: Instructed in HEP of standing HR, SSH, marching, and sit to stands at walker as tolerated. Informed Consent/Education: Patient instructed in purpose of PT consult and plan of care. 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 Patient presents with clinical signs and symptoms consistent with weakness, as demonstrated by the following impairment level findings: 1. Dependancy on oxygen for activity. 2. Quick fatigue post short activity spurt of 5 minutes, with need for multiple breaks. 3. Obese. Impairments are contributing to the following functional limitations: Dependancy on walker, inability to tolerate houshold ambulation distance without oxygen, and fatigue with basic functional movements, which are weakened compared to baseline premorbid level of function, and AMPAC score of 46% disabiltiy. Patient is assessed as a Low 02151 x Moderate 92714 High 08953 complexity based on the following: History: See i Examination: See above impairments and functional limitations Presentation: Evolving Decision Making: Easy Goals: Goals X1 week 1. Supine-Sit I 2. Sit-Supine I 3. Sit-Stand I 4. Stand-Sit I 5. Bed-Chair I 6. Chair-Bed I 7. Gait 50 ft, walker, stable O2 without O2 support. 8. Stairs N/A 9. Independent with home exercise program I 10. Balance Good Plan of Care/Treatment Plan: 1-2x/day, 7 days/week x 1 week. Plan of care has been reviewed with the CORE DRILLER HELPER providing the service under Physical Therapy direction. Initiate Physical Therapy intervention for strengthening and activity tolerance to return to premorbid level of function. DISCHARGE RECOMMENDATIONS: Home with family TREATMENT CODE/TIME: 30 minutes, [id number]
--- NOTE | 2018-06-15 11:11 | IN_ITS ---
Date of service: 06/15/18 Time of Service: 10:30 PT Notes Inpatient Physical Therapy Evaluation Date: 06/15/18 Referring Doctor: Ashley Cancino NP PT Orders: PT CONSULT: weakness Precautions: Standard Patient Profile/Admitting Diagnosis: Presented to ER on 06/12/18 in acute respiratory distress with tachypnea, O2 sat of 70% on room air. Differential diagnosis revealed acute pneumonia with COPD exacerbation, on top of other chronic multiple comoridities to include morbid obesity and LE lymphedema. 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) Aortic stenosis (Chronic 04/17/18) LVH (left ventricular hypertrophy) (Chronic 04/17/18) Lymphedema (Chronic) COPD (chronic obstructive pulmonary disease) (Chronic) Morbid obesity (Chronic) Atypical squamous cells of undetermined significance on cytologic smear of cervix (ASC-US) (Acute) Disease of nail (Acute) Alcohol abuse (Chronic) Dysfunctional uterine bleeding (Resolved) Chronic GERD Diastasis recti Heart murmur Menorrhagia with irregular cycle Morbid obesity with BMI of 50.0-59.9, adult Transfusion history Social History Smoking/Tobacco Use Status: Current every day tobacco type: cigarettes alcohol intake: current alcohol intake frequency: holidays/special occasions only Home Situation: Lives in a private home with her , father, brother and brother's girlfriend. Does not work. She lives on main floor of home, with no stairs to enter. She does not drive. Premorbid level of function: I, WNL, no AD, No O2 support. Current Functional Limitations: Dependent on walker for short distance ambulation due to SOB, and weakness with struggle to move her heavy LE's. Equipment Owned/DME: Walker Subjective: Feeling frustrated with her SOB, as she is anxious to return home. Reports that as of recent she has had to use her 's walker to get around the home, due to the strain of her heavy legs and SOB. She is experiencing a lot of heart burn since her coughing over the past few weeks. Objective: General Observation: Found sitting, watching tv. NC O2 of 3L. Good color. Morbidly obese. Poor hygeine, and skin dryness and discoloration of LE's due to her weight and lymphedema. Mental Status: A & O x3 Pain: 0/10 Vital Signs: BP 132/81, HR 55, O2 sat on 3L sitting 95%. O2 drops to 88% after 50 ft of ambulation, 0 L O2. Quickly recovers to 97% with sitting post 3 minutes, at 2L O2. Decide with RNAnton, to trial 2L and monitor O2 sats. ROM: Right Upper Extremity: WNL Left Upper Extremity: WNL Right Lower Extremity: Grossly WFL, with hip limitations related to abdominal panus Left Lower Extremity: Grossly WFL, with hip limitations related to abdominal panus. Strength: Right Upper Extremity: Grossly 5/5 Left Upper Extremity: Grossly 5/5 B Lower Extremities: Knee and below grossly 5/5, difficulty testing hips due to mobility limitations of abdomen, but demonstrating functional movement for basic ambulation and standing activities. Sensation: Not assessed Bed Mobility/Transfers: Sit <> stand I Gait: RW, 50 ft, distant supervision Balance: Static Sitting: Good Dynamic Sitting: Good Static Standing: Good Dynamic Standing: Good Special Tests: Mobility Limitations Standardized Measure [facility] AM-PAC 6 clicks Basic Mobility Inpatient Short Form: Raw Score: 18 Standardized Score: CMS Score: 46% disability CMS Modifier: Treatment: Instructed in HEP of standing HR, SSH, marching, and sit to stands at walker as tolerated. Informed Consent/Education: Patient instructed in purpose of PT consult and p javier of care. 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 Patient presents with clinical signs and symptoms consistent with weakness, as demonstrated by the following impairment level findings: 1. Dependancy on oxygen for activity. 2. Quick fatigue post short activity spurt of 5 minutes, with need for multiple breaks. 3. Obese. Impairments are contributing to the following functional limitations: Dependancy on walker, inability to tolerate houshold ambulation distance without oxygen, and fatigue with basic functional movements, which are weakened compared to baseline premorbid level of function, and AMPAC score of 46% disabiltiy. Patient is assessed as a Low 56133 x Moderate 20747 High 62482 complexity based on the following: History: See i Examination: See above impairments and functional limitations Presentation: Evolving Decision Making: Easy Goals: Goals X1 week 1. Supine-Sit I 2. Sit-Supine I 3. Sit-Stand I 4. Stand-Sit I 5. Bed-Chair I 6. Chair-Bed I 7. Gait 50 ft, walker, stable O2 without O2 support. 8. Stairs N/A 9. Independent with home exercise program I 10. Balance Good Plan of Care/Treatment Plan: 1-2x/day, 7 days/week x 1 week. Plan of care has been reviewed with the LINE SUPPLY providing the service under Physical Therapy direction. Initiate Physical Therapy intervention for strengthening and activity tolerance to return to premorbid level of function. DISCHARGE RECOMMENDATIONS: Home with family TREATMENT CODE/TIME: 30 minutes, [id number]
--- NOTE | 2018-06-15 12:21 | W.PM.PROGNOT ---
Documented by User: Ashley Cancino NP 06/15/18 14:26 Date of Service Date of service: 06/15/18 Time of Service: 13:51 Assessment and Plan (1) Acute pneumonitis: Start date: 06/15/18 Start time: 12:25 Current visit: Yes Status: Acute Day #3 of levaquin, continue steroids decreased dose to 60 mg IV, lungs are sounding better, encouraged ICS use pt does not like using ICS stating that is makes mucus build up and she can't spit it out, encouraged deep breathing, holding deep breath for 5 seconds then blowing out to break up secretions, CXR with atelectasis. Guaifenesin/Methorphan added to regimen to help break up mucus. (2) Sleep apnea: Start date: 06/15/18 Start time: 13:43 Current visit: Yes Status: Chronic CPAP at hs requesting files from [facility] sleep center currently (3) Tobacco abuse: Start date: 06/15/18 Start time: 13:43 Current visit: Yes Status: Chronic not ready to quite, Nicotine patch as needed (4) Lymphedema: Start date: 06/15/18 Start time: 13:44 Current visit: No Status: Chronic improved. will continue to monitor. (5) Morbid obesity: Start date: 06/15/18 Start time: 13:44 Current visit: Yes Status: Chronic Diet changed to low k+ (6) GERD (gastroesophageal reflux disease): Start date: 06/15/18 Start time: 13:45 Current visit: Yes Status: Chronic protonix IVP 40 mg BID (7) Acute exacerbation of COPD with asthma: Current visit: Yes Status: Acute likely due to pneumonitis, SEE Above (8) Rash: Start date: 06/15/18 Start time: 13:50 Current visit: Yes Status: Acute i have started a compound cream of Vit A, D zinc and clotirimzaole TID to affected areas. (9) Hyponatremia: Start date: 06/15/18 Start time: 14:04 Current visit: Yes Status: Acute Sodium of 133, dcd 2 gm diet and placed on regular diet with Low K+ will monitor and replete as necessary Subjective Patient reports: feels better Interval history since last seen: Today she is looking and feeling much better, she slept well last night. Her wheezing has improved. I have decreased her steroids from 80 to 60mg, She is more ambulatory today with improving WRAY, She is refusing ICS at this point she states, phlegm gets caught in her throat. I have encouraged her to take deep breaths and hold them every commercial break. She agreed to try. CXR yesterday shows MARCEL lobe pneumonia in comparison to her CT on 06/13 with multifocal pneumonia. She states her rash to breasts doesn't hurt though it does look fungal but it is sore around her gluteal folds. I have asked pharmacy to compound a mixture of Vit A, Vit D, zinc and clotrimazole to be applied TID to affected area. I would recommend she follow up on outpatient as this looks to be Hidradenatitis Suppurativa. Exam Const General: cooperative and no acute distress HENNJ Head: normal to inspection Eyes General: appearance normal, both eyes and all related structures Neck Lymphatic: no lymphadenopathy noted and no lymphedema noted Chest Chest: normal inspection of the chest Resp Effort & Inspection: normal respiratory effort and able to speak in complete sentences Auscultation: crackles and rhonchi Other: improving lung sounds Cardio Rate: regular rate Rhythm: regular rhythm Heart Sounds: S1 normal and S2 normal GI Inspection: normal to inspection Skin Other: rash under gluteal folds and breasts Neuro General: alert, awake and oriented x3 Extrem General: normal to inspection Objective Objective Clinical Data: Abnormal lab results 06/15/18 06/15/18 Range/Units 07:10 07:10 WBC 11.24 H (4.4-10.8) k/cumm MCH 26.8 L (27.0-33.0) pg MCHC 29.5 L (32.0-36.0) g/dL RDW 15.2 H (11.7-14.6) % Absolute Neutrophils 9.89 H (1.2-6.7) k/cumm Absolute Lymphocytes 0.90 L (1.2-3.4) k/cumm Sodium 133 L (136-145) mmol/L Chloride 95 L (98-107) mmol/L Carbon Dioxide 39.4 H (21.0-32.0) mmol/L Anion Gap -1.4 L (3-11) mmol/L Creatinine 0.50 L (0.55-1.02) mg/dL Glucose 189 H (70-100) mg/dL Vital Signs Temperature 36.2 C L 06/15/18 07:40 Temperature Source Tympanic 06/15/18 07:40 Pulse 69 06/15/18 07:40 Pulse Rhythm Regular 06/15/18 09:41 Pulse 95 H 06/12/18 21:30 Respiratory Rate 20 06/15/18 07:40 Respiratory Effort Non-Labored 06/15/18 09:41 Respiratory Depth Normal 06/15/18 09:41 Respiratory Pattern Normal 06/15/18 09:41 Blood Pressure 149/83 H 06/15/18 07:40 Blood Pressure Mean 78 06/12/18 20:15 Pulse Oximetry 96 06/15/18 10:58 Oxygen Delivery Method Nasal Cannula 06/15/18 10:58 Oxygen Flow Rate 2 06/15/18 10:58 Pain Level 0 06/15/18 07:40 Intake & Output 06/14/18 06/15/18 06/15/18 23:59 11:59 23:59 Intake Total 630 / 990 250 / 250 Balance 630 / 990 250 / 250 Intake: IV 150 / 150 Oral 480 / 840 250 / 250 Other: Urine Appearance Clear Comment x1 independant Voiding Methods Toilet Toilet Laboratory Results WBC 11.24 k/cumm (4.4-10.8) H 06/15/18 07:10 RBC 4.82 m/cumm (4.00-5.20) 06/15/18 07:10 Hgb 12.9 g/dL (12.0-15.5) 06/15/18 07:10 Hct 43.7 % (36.0-46.0) 06/15/18 07:10 MCV 90.7 fL (80-95) 06/15/18 07:10 MCH 26.8 pg (27.0-33.0) L 06/15/18 07:10 MCHC 29.5 g/dL (32.0-36.0) L 06/15/18 07:10 RDW 15.2 % (11.7-14.6) H 06/15/18 07:10 Plt Count 292 x1000/uL (130-400) 06/15/18 07:10 MPV 9.9 fL (8.0-11.0) 06/15/18 07:10 Immature Gran % 0.0 06/15/18 07:10 Neutrophils % 85.0 06/15/18 07:10 Band Neutrophils % 3.0 % 06/15/18 07:10 Lymphocytes % 7.0 06/15/18 07:10 Atypical Lymphs % 1 06/15/18 07:10 Monocytes % 4.0 06/15/18 07:10 Eosinophils % 0.0 06/15/18 07:10 Basophils % 0.0 06/15/18 07:10 Absolute Neutrophils 9.89 k/cumm (1.2-6.7) H 06/15/18 07:10 Absolute Lymphocytes 0.90 k/cumm (1.2-3.4) L 06/15/18 07:10 Absolute Monocytes 0.45 k/cumm (0.11-0.7) 06/15/18 07:10 Absolute Eosinophils 0.00 k/cumm (0.0-0.7) 06/15/18 07:10 Absolute Basophils 0.00 k/cumm (0.0-0.2) 06/15/18 07:10 Differential Comment Manual differential 06/15/18 07:10 RBC Morphology See below 06/15/18 07:10 Polychromasia Present 06/15/18 07:10 Hypochromasia 1+ 06/15/18 07:10 Basophilic Stippling Present 06/15/18 07:10 Anisocytosis 1+ 06/15/18 07:10 Stomatocytes 2+ 06/15/18 07:10 Sodium 133 mmol/L (136-145) L 06/15/18 07:10 Potassium 4.7 mmol/L (3.5-5.1) 06/15/18 07:10 Chloride 95 mmol/L (98-107) L 06/15/18 07:10 Carbon Dioxide 39.4 mmol/L (21.0-32.0) H 06/15/18 07:10 Anion Gap -1.4 mmol/L (3-11) L 06/15/18 07:10 BUN 7 mg/dL (7-18) 06/15/18 07:10 Creatinine 0.50 mg/dL (0.55-1.02) L 06/15/18 07:10 Estimated GFR/1.73 m2 >= 60.00 (mL/min/1.73m2) 06/15/18 07:10 Glucose 189 mg/dL (70-100) H 06/15/18 07:10 Lactate 1.0 mmol/l (0.6-1.4) 06/12/18 18:00 Calcium 9.2 mg/dL (8.5-10.1) 06/15/18 07:10 Magnesium 2.0 mg/dL (1.8-2.4) 06/15/18 07:10 Total Bilirubin 1.0 mg/dL (0.2-1.0) 06/12/18 17:15 AST 20 U/L (15-37) 06/12/18 17:15 ALT 16 U/L (12-78) 06/12/18 17:15 Alkaline Phosphatase 113 U/L (46-116) 06/12/18 17:15 Troponin I < 0.02 ng/mL (0.00-0.06) 06/12/18 17:15 NT-Pro-B Natriuret Pep 181 pg/mL (-299) 06/12/18 17:15 Total Protein 9.2 g/dL (6.4-8.2) H 06/12/18 17:15 Albumin 3.0 g/dL (3.4-5.0) L 06/12/18 17:15 Ur Strep pneumoniae Ag Negative (Negative) 06/13/18 05:50 Documented by User: Radha Butts MD 06/16/18 15:49
--- NOTE | 2018-06-15 13:35 | PDOC.CMPRO ---
- If Service Date Differs Date of service: 06/15/18 Time of Service: 13:35 Care Management Progress Note S/O: Kenna is sitting up in her chair when this fiction writer visits this morning, she is receptive to discussion. Kenna had an oxygen requirement overnight of 3L at 97%, therefore RT Candida, will wean Kenna down today, as she at baseline does not use oxygen. Reviewed DC plans which remain unchanged at this time. A: 42 y/o female admitted 06/12/18 for Pneumonia, COPD Exacerbation. P: Kenna will return home with no anticipated services once medically cleared. She will F/U with PCP and plan of care as prescribed. Kenna's sister to transport when medically ready.
--- NOTE | 2018-06-15 13:43 | CMPROGNOTE_ITS ---
- If Service Date Differs Date of service: 06/15/18 Time of Service: 13:35 Care Management Progress Note S/O: Kenna is sitting up in her chair when this advertising copywriter visits this morning, she is receptive to discussion. Kenna had an oxygen requirement overnight of 3L at 97%, therefore RT Candida, will wean Kenna down today, as she at baseline does not use oxygen. Reviewed DC plans which remain unchanged at this time. A: 42 y/o female admitted 06/12/18 for Pneumonia, COPD Exacerbation. P: Kenna will return home with no anticipated services once medically cleared. She will F/U with PCP and plan of care as prescribed. Kenna's sister to transport when medically ready.
[2018-06-15] MEDS: Mylanta Suspension 30 ML CUP PO (14:31)
[2018-06-15 16:39] LABS: NT-proBNP 358 pg/mL
[2018-06-15] MEDS: Furosemide 20 MG/2 ML VIAL IVP (17:47)
[2018-06-15] MEDS: LEVOFLOXACIN 750 MG/150 ML BAG 100 MG IVPB (19:14)
--- NOTE | 2018-06-15 19:21 | NUR.NOTE ---
Nursing Note: Report received from off going nurse, patient is currently in stable condition, sitting up in bedside chair with no report of pain or discomfort at this time, the bed is in the low and locked position, side rails up x2, call light within reach.
[2018-06-15 20:56] LABS: Mycoplasma Pneumoniae PCR Negative; Specimen source SPUTUM
[2018-06-15] MEDS: diphenhydrAMINE 25 MG CAP 50 MG PO (21:13)
[2018-06-15] MEDS: methylPREDNISolone SUCC 125 MG VIAL 60 MG IVP (21:13)
[2018-06-15] MEDS: Enoxaparin 40 MG/0.4 ML SYR SC (21:13)
[2018-06-16] VITALS (10 sets, daily range): BP systolic 137–162; BP diastolic 65–82; PULSE 63–83; RESP 4–20; TEMP 36.7–37.5; O2SAT 93–96
[2018-06-16] MEDS: Albuterol/Ipratropium 3 ML UPD VIAL UPD ×4 (05:04→23:23)
[2018-06-16 07:31] LABS: Abs Immature Grans 0.02 k/cumm (0.0-0.09); HCT 43.6 % (36.0-46.0); Mean Corp. HGB Concentration 29.8 g/dL (32.0-36.0); Mean Corpuscular Hemoglobin 26.6 pg (27.0-33.0); Mean Corpuscular Volume 89.3 fL (80-95); Platelet Count 305 x1000/uL (130-400); RBC 4.88 m/cumm (4.00-5.20); RBC Distribution Width 14.9 % (11.7-14.6); White Blood Cell Count 10.91 k/cumm (4.4-10.8)
[2018-06-16 07:42] LABS: Anion Gap 0.4 mmol/L (3-11); BUN 8 mg/dL (7-18); CO2 41.6 mmol/L (21.0-32.0); CREATININE 0.51 mg/dL (0.55-1.02); Chloride 95 mmol/L (98-107); Glucose 118 mg/dL (70-100); Potassium 4.4 mmol/L (3.5-5.1); Sodium 137 mmol/L (136-145)
[2018-06-16] MEDS: Pantoprazole 40 MG VIAL IVP (07:55)
[2018-06-16] MEDS: guaiFENesin 600 MG TABCR 1200 MG PO ×2 (07:56→19:34)
[2018-06-16] MEDS: Clotrimazole 1% 15 GM TUBE TP (07:56)
[2018-06-16] MEDS: Normal Saline Flush 10 ML SYR IVP ×4 (07:56→21:12)
[2018-06-16] MEDS: Metoprolol 25 MG TAB PO ×2 (07:56→19:34)
[2018-06-16] MEDS: medroxyPROGESTERone 10 MG TAB PO (07:56)
[2018-06-16] MEDS: Benzonatate 200 MG CAP PO ×3 (07:56→19:34)
[2018-06-16 08:31] LABS: Absolute Lymphocyte Count 2.51 k/cumm (1.2-3.4); Absolute Monocyte Count 0.55 k/cumm (0.11-0.7); Absolute Neutrophil Count 7.75 k/cumm (1.2-6.7); Anisocytosis 1+; Atypical Lymphocytes % 4; Diff Comment Manual Differential; Hypochromasia 1+
[2018-06-16 08:32] LABS: Stomatocytes 2+
--- NOTE | 2018-06-16 09:27 | OTIE_ITS ---
Occupational Therapy Notes Inpatient Occupational Therapy Evaluation Date: 06/16/18 Referring Doctor:Ashley Cancino NP OT Orders: Weakness Precautions: Standard Precautions PATIENT PROFILE/ADMITTING DIAGNOSIS: Pt is a 42 year old female referred to OT services after admission through the ER for pneumonia, COPD exacerbation. 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) Aortic stenosis (Chronic 04/17/18) LVH (left ventricular hypertrophy) (Chronic 04/17/18) Lymphedema (Chronic) COPD (chronic obstructive pulmonary disease) (Chronic) Morbid obesity (Chronic) Atypical squamous cells of undetermined significance on cytologic smear of cervix (ASC-US) (Acute) Disease of nail (Acute) Alcohol abuse (Chronic) Dysfunctional uterine bleeding (Resolved) Chronic GERD Diastasis recti Heart murmur Menorrhagia with irregular cycle Morbid obesity with BMI of 50.0-59.9, adult Transfusion history Social History/Home Situation: Pt lives in a private home with her , father, brother and brother's girlfriend. Does not work. She lives on main floor of home, with no stairs to enter. She does not drive. She reports that she sleeps in a recliner chair and her bedroom is on the first floor so she does not have to go up the stairs inside of her home. Prior to admission she was (I) all ADLs/IADLs. Equipment owned/DME: Walker SUBJECTIVE: Pt was standing at the door when OT arrived. She was ambulating (I) with no assistive device and was agreeable to OT session. OBJECTIVE: General Observation: nasal canal in when OT arrives. Pt reports that her O2 per nursing was 93%. Mental Status: A&Ox3 Pain: no c/o pain ROM: RUE AROM WNL L UE AROM WNL STRENGTH: RUE 5/5 throughout LUE 5/5 throughout BALANCE: Static sitting Normal Dynamic Sitting Normal Static Standing Normal Dynamic Standing Normal SPECIAL TESTS: Daily Activity Limitations Standardized Measure [facility] AM PAC ?6 clicks? Daily Activity Inpatient Short Form: Raw score: 21 Standardized score: 44.27 CMS score: 32.79% CMS modifier: CJ INFORMED CONSENT/EDUCATION: Pt instructed in purpose of OT Consult and plan of care. ASSESSMENT: Patient is a 42-year-old female referred to occupational therapy services with diagnosis of pneumonia, COPD exacerbation. Through functional examination pt presents as (I) in ADLs/IADLs at this time which is her baseline level of function. OT recommends that pt return home when medically cleared per MD. She has all equipment. She is concerned about her CPAP machine parts which OT spoke with care managers and they have been working on this currently. AMPAC score AMPAC score 21, CMS score 32.79% Patient is assessed as a Low 34791 complexity based on the following: History: See Above Examination: See Above Presentation: Evolving Decision Making: AMPAC score 21, CMS score 32.79% GOALS N/A PLAN OF CARE/TREATMENT PLAN: OT consult only DISCHARGE RECOMMENDATIONS Home with family when medically cleared per MD. D/C from skilled OT services at this time. TREATMENT TIME/MINUTES/CODES 47884, 15 minutes (08:15) G Codes in the area of self- : washing oneself, toileting, dressing, eating and drinking, current status GO [id number] CJ projected status GO [id number]. Discharge status (if discharging) GO [id number]. Padmini Rubio, OTR/L [facility]
[2018-06-16] MEDS: methylPREDNISolone SUCC 125 MG VIAL 60 MG IVP ×2 (09:52→21:12)
--- NOTE | 2018-06-16 11:34 | PDOC.CMPRO ---
- If Service Date Differs Date of service: 06/16/18 Time of Service: 11:34 Care Management Progress Note S/O: Kenna is sitting up in her chair this morning, she is pleasant and receptive to discussion. Candida RT, as well as the Med/Surg loading unit operator seating are working on acquiring Kenna's previous sleep study, so that she can establish care with a local DME. OT met with this junior copywriter as she worked with Kenna this morning, OT reports that Kenna did well and will not require OT services. A: 42 y/o female admitted 06/12/18 for Pneumonia, COPD Exacerbation. P: Kenna will return home with no anticipated services once medically cleared. She will F/U with PCP and plan of care as prescribed. Kenna's sister to transport when medically ready.
--- NOTE | 2018-06-16 11:37 | CMPROGNOTE_ITS ---
- If Service Date Differs Date of service: 06/16/18 Time of Service: 11:34 Care Management Progress Note S/O: Kenna is sitting up in her chair this morning, she is pleasant and receptive to discussion. Candida RT, as well as the Med/Surg community relations liaison are working on acquiring Kenna's previous sleep study, so that she can establish care with a local DME. OT met with this ad writer as she worked with Kenna this morning, OT reports that Kenna did well and will not require OT services. A: 42 y/o female admitted 06/12/18 for Pneumonia, COPD Exacerbation. P: Kenna will return home with no anticipated services once medically cleared. She will F/U with PCP and plan of care as prescribed. Kenna's sister to transport when medically ready.
[2018-06-16] MEDS: Furosemide 20 MG/2 ML VIAL IVP (11:54)
--- NOTE | 2018-06-16 15:22 | PT.INTREAT ---
Date of service: 06/16/18 Time of Service: 15:22 PT Notes Inpatient Physical Therapy Treatment Note [facility] Date: 06/16/18 SUBJECTIVE: Kenna states that she would like to go home. Kenna also reports that her legs feel weak and she has trouble breathing, which prevents her from exercising at home. OBJECTIVE: PAIN: No complaints of pain BED MOBILITY/TRANSFERS Sit-stand: I Stand-sit: I GAIT Assistive Device: No AD in a.m.; FWW in p.m. Weight bearing: Full Assist: S Distance: 50' x2 in a.m.; 100' x2 in p.m. Deviation: Standing rest x1 VITALS: A.m. session performed in collaboration with respiratory therapy: SaO2: 89-97% on RA with gait training; 89-95% on 1L via NC with gait training following standing rest P.m. session performed in collaboration with respiratory therapy: SaO2: 89-93% on 1L via NC with gait training THEREX: Patient performed standing marches in place 2x30 seconds with SOB requiring seated rest ASSESSMENT: Patient tolerated session with complaints of SOB with gait training, as well as LE weakness with gait training. Patient required standing rest x1 with gait training. Patient would benefit from continued conditioning via gait training and strengthening for improved activity tolerance. PLAN: Continue with PTs POC TREATMENT CODE/TIME: Session 1: 15 minutes; [id number] Session 2: 20 minutes; [id number]
--- NOTE | 2018-06-16 15:51 | PGE_ITS ---
Date of Service Date of service: 06/16/18 Time of Service: 15:49 Assessment and Plan (1) CAP (community acquired pneumonia): Current visit: Yes Status: Acute Continue levofloxacin and add rocephin. Persists per CXR and still clinically impressive. (2) Acute exacerbation of COPD with asthma: Current visit: Yes Status: Acute Do not change dose of steroids today. Wean O2 as tolerated. Continue Scheduled/prn nebs, symbicort, abx, antitusssives (3) Hypoxia: Current visit: Yes Status: Acute Multifactorial - due to CAP/Acute exacerbation of COPD, acute on chronic diastolic CHF, suspected pulmonary hypertension, OHS. Patient is now on scheduled lasix. Wean O2 as tolerated. Monitor strict I/O's and daily weights (4) Acute on chronic diastolic CHF (congestive heart failure): Current visit: Yes Status: Acute Continue lasix (started yesterday), monitoring Cr, I/O's and daily weights. 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 Coordinating with a local O2/home health company for continued service. (6) Hiatal hernia: Current visit: No Status: Chronic PPI + ranitidine (7) GERD (gastroesophageal reflux disease): Current visit: Yes Status: Chronic as above (8) Iron deficiency anemia secondary to blood loss (chronic): Current visit: Yes Status: Chronic Monitor CBC (9) Aortic stenosis: Current visit: No Status: Chronic Stable - monitor volume status (10) Hyponatremia: Current visit: Yes Status: Acute Likely due to fluid retention at this point- resolving with diuresis. (11) Tobacco abuse: Current visit: Yes Status: Chronic advised to quit (12) Obesity hypoventilation syndrome: Current visit: Yes Status: Acute Needs outpatient pulmonary follow up and encouragement to loose weight. May require O2 on discharge. Continue BiPAP qHS. (13) Morbid obesity with BMI of 60.0-69.9, adult: Current visit: Yes Status: Acute Encourage weight loss. Nutrition consulted. (14) Discharge planning issues: Current visit: Yes Status: Acute Full code Case management/RT to coordinate transfer of patient's BiPAP services to a local company Would benefit from [facility], PFT's as outpatient, pulmonary follow up. (15) DVT prophylaxis: Current visit: Yes Status: Acute Lovenox Subjective Interval history since last seen: Ms Singletary states she feels a little bit better every day. Her cough is not productive. Her breathing is better. She states she can see her ankles now since lasix was given to her yesterday - usually she can't see her ankles. Nursing reports that the patient has a supply of high calorie unhealthy food stashed behind her chair and feels that the patient would benefit from a dietary consult. Exam Narrative Exam Narrative: General: Very pleasant obese female, sitting in a chair wearing O2 (not tachypneic); there is a fungal smell in the room HEENT: EOMI, MMM Heart: RRR, no m/r/g Lungs: quiet wheezing on expiration B with quiet crackles at B bases GI: abdomen soft, nontender, nondistended Extremities: woody edema BLE's with a mild pitting component in the ankles. Chronic venous stasis dermatitis. No clubbing or cyanosis. Objective Objective Clinical Data: Abnormal lab results 06/15/18 06/16/18 06/16/18 Range/Units 16:12 06:37 06:37 WBC 10.91 H (4.4-10.8) k/cumm MCH 26.6 L (27.0-33.0) pg MCHC 29.8 L (32.0-36.0) g/dL RDW 14.9 H (11.7-14.6) % Absolute Neutrophils 7.75 H (1.2-6.7) k/cumm Chloride 95 L (98-107) mmol/L Carbon Dioxide 41.6 H (21.0-32.0) mmol/L Anion Gap 0.4 L (3-11) mmol/L Creatinine 0.51 L (0.55-1.02) mg/dL Glucose 118 H (70-100) mg/dL NT-Pro-B Natriuret Pep 358 H ( - 299) pg/mL Vital Signs Temperature 36.9 C 06/16/18 11:35 Temperature Source Tympanic 06/16/18 11:35 Pulse 63 06/16/18 11:35 Pulse Rhythm Regular 06/16/18 09:16 Pulse 95 H 06/12/18 21:30 Respiratory Rate 20 06/16/18 11:35 Respiratory Effort Non-Labored 06/16/18 09:16 Respiratory Depth Normal 06/16/18 09:16 Respiratory Pattern Normal 06/16/18 09:16 Blood Pressure 142/82 H 06/16/18 11:35 Blood Pressure Mean 78 06/12/18 20:15 Pulse Oximetry 93 L 06/16/18 11:35 Oxygen Delivery Method Nasal Cannula 06/16/18 11:35 Oxygen Flow Rate 2 06/16/18 11:35 Pain Level 0 06/16/18 07:30 Intake & Output 06/15/18 06/16/18 06/16/18 23:59 11:59 23:59 Intake Total 390 / 640 360 / 600 240 / 600 Output Total 160 / 160 480 / 480 Balance 230 / 480 -120 / 120 240 / 120 Weight 190.112 kg 188.439 kg Intake: IV 150 / 150 Oral 240 / 490 360 / 600 240 / 600 Output: Urine 160 / 160 480 / 480 Other: Urine Color Yellow Yellow Urine Appearance Clear Clear Comment independant Pt voids independently Voiding Methods Toilet Laboratory Results WBC 10.91 k/cumm (4.4-10.8) H 06/16/18 06:37 RBC 4.88 m/cumm (4.00-5.20) 06/16/18 06:37 Hgb 13.0 g/dL (12.0-15.5) 06/16/18 06:37 Hct 43.6 % (36.0-46.0) 06/16/18 06:37 MCV 89.3 fL (80-95) 06/16/18 06:37 MCH 26.6 pg (27.0-33.0) L 06/16/18 06:37 MCHC 29.8 g/dL (32.0-36.0) L 06/16/18 06:37 RDW 14.9 % (11.7-14.6) H 06/16/18 06:37 Plt Count 305 x1000/uL (130-400) 06/16/18 06:37 MPV 10.0 fL (8.0-11.0) 06/16/18 06:37 Immature Gran % 0.0 06/16/18 06:37 Neutrophils % 71.0 06/16/18 06:37 Band Neutrophils % 3.0 % 06/15/18 07:10 Lymphocytes % 19.0 06/16/18 06:37 Atypical Lymphs % 4 06/16/18 06:37 Monocytes % 5.0 06/16/18 06:37 Eosinophils % 0.0 06/16/18 06:37 Basophils % 0.0 06/16/18 06:37 Absolute Neutrophils 7.75 k/cumm (1.2-6.7) H 06/16/18 06:37 Absolute Lymphocytes 2.51 k/cumm (1.2-3.4) 06/16/18 06:37 Absolute Monocytes 0.55 k/cumm (0.11-0.7) 06/16/18 06:37 Absolute Eosinophils 0.00 k/cumm (0.0-0.7) 06/16/18 06:37 Absolute Basophils 0.00 k/cumm (0.0-0.2) 06/16/18 06:37 Differential Comment Manual differential 06/16/18 06:37 RBC Morphology See below 06/16/18 06:37 Polychromasia Present 06/15/18 07:10 Hypochromasia 1+ 06/16/18 06:37 Basophilic Stippling Present 06/15/18 07:10 Anisocytosis 1+ 06/16/18 06:37 Stomatocytes 2+ 06/16/18 06:37 Sodium 137 mmol/L (136-145) 06/16/18 06:37 Potassium 4.4 mmol/L (3.5-5.1) 06/16/18 06:37 Chloride 95 mmol/L (98-107) L 06/16/18 06:37 Carbon Dioxide 41.6 mmol/L (21.0-32.0) H 06/16/18 06:37 Anion Gap 0.4 mmol/L (3-11) L 06/16/18 06:37 BUN 8 mg/dL (7-18) 06/16/18 06:37 Creatinine 0.51 mg/dL (0.55-1.02) L 06/16/18 06:37 Estimated GFR/1.73 m2 >= 60.00 (mL/min/1.73m2) 06/16/18 06:37 Glucose 118 mg/dL (70-100) H 06/16/18 06:37 Lactate 1.0 mmol/l (0.6-1.4) 06/12/18 18:00 Calcium 9.0 mg/dL (8.5-10.1) 06/16/18 06:37 Magnesium 2.0 mg/dL (1.8-2.4) 06/15/18 07:10 Total Bilirubin 1.0 mg/dL (0.2-1.0) 06/12/18 17:15 AST 20 U/L (15-37) 06/12/18 17:15 ALT 16 U/L (12-78) 06/12/18 17:15 Alkaline Phosphatase 113 U/L (46-116) 06/12/18 17:15 Troponin I < 0.02 ng/mL (0.00-0.06) 06/12/18 17:15 NT-Pro-B Natriuret Pep 358 pg/mL (-299) H 06/15/18 16:12 Total Protein 9.2 g/dL (6.4-8.2) H 06/12/18 17:15 Albumin 3.0 g/dL (3.4-5.0) L 06/12/18 17:15 Legionella Source (see note) 06/13/18 10:28 Legionella Reprt Status (see note) 06/13/18 10:28 Legionella Final Result (see note) 06/13/18 10:28 M. pneumoniae Source Sputum 06/10/18 05:50 M. pneumoniae (PCR) Negative 06/10/18 05:50 Ur Strep pneumoniae Ag Negative (Negative) 06/13/18 05:50 CXR: Left upper lobe infiltrate, question of additional basilar infiltrates vs atelectasis.
[2018-06-16] MEDS: Mylanta Suspension 30 ML CUP PO (16:04)
--- NOTE | 2018-06-16 19:00 | NUR.NOTE ---
Nursing Note: Report received from YASMINE Walton. Patient is currently in stable condition, sitting up in bedside chair, no report of pain or discomfort at this time, the bed is in the low and locked position, side rails up x2, call light within reach.
[2018-06-16] MEDS: LEVOFLOXACIN 750 MG/150 ML BAG 100 MG IVPB (19:35)
[2018-06-16] MEDS: diphenhydrAMINE 25 MG CAP 50 MG PO (21:12)
[2018-06-16] MEDS: Enoxaparin 40 MG/0.4 ML SYR SC (21:12)
[2018-06-17] VITALS (13 sets, daily range): BP systolic 132–167; BP diastolic 60–86; PULSE 64–101; RESP 2–24; TEMP 36.1–36.9; O2SAT 87–98
--- NOTE | 2018-06-17 04:00 | NUR.NOTE ---
Nursing Note: Called to bedside by patient, she is upset, claims her bipap isn't working right, it's blowing air everywhere. I attempted to fix the issue and get a good seal on the mask, patient is adamant this did not fix the problem.. I had another RN come assess the situation and attempt to fix the patients issue. The patient is adamant that the machine is just not working right and she will not wear it any more tonight.
[2018-06-17] MEDS: Albuterol/Ipratropium 3 ML UPD VIAL UPD ×4 (05:47→23:19)
[2018-06-17] MEDS: Normal Saline Flush 10 ML SYR IVP ×4 (08:46→19:33)
[2018-06-17] MEDS: guaiFENesin 600 MG TABCR 1200 MG PO ×2 (08:48→19:33)
[2018-06-17] MEDS: Benzonatate 200 MG CAP PO ×3 (08:48→19:33)
[2018-06-17] MEDS: Metoprolol 25 MG TAB PO ×2 (08:48→19:33)
[2018-06-17] MEDS: Furosemide 20 MG/2 ML VIAL IVP (08:48)
[2018-06-17] MEDS: medroxyPROGESTERone 10 MG TAB PO (08:48)
[2018-06-17] MEDS: methylPREDNISolone SUCC 125 MG VIAL 60 MG IVP (10:14)
--- NOTE | 2018-06-17 13:40 | W.NUTCONSULT ---
Date of service: 06/17/18 Time of Service: 13:40 Nutritional Consult ASSESSMENT: Nutrition consult requested for GERD nutrition therapy. Ms. Singletary reports that she would like to lose weight. She is 66 and 409 lbs. She describes a history of eating larger portions as well as not being able to be physically active. NUTRITIONAL DIAGNOSIS: Class 3 obesity related to excess energy intake and physical inactivity as evidenced by BMI of 64 kg/m2. INTERVENTION: Reviewed nutrition therapy for GERD and provided written materials. Encouraged Ms. Singletary to seek help with outpatient weight management nutrition therapy. She stated she would like to make an appointment with me as an outpatient for counseling. I set her up for June 30, 2018 at 1300. I also encouraged her to give a call to the [facility] F[facility] which is free and may be appropriate for her. She stated she would take the information. MONITORING AND EVALUATION: 1. Will monitor her progress while she is here. 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 2. Will evaluate her nutrition care plan ongoing and adjust as needed. Thank you for the consult Time Spent in Nutritional Counseling and Treatment: ABENA
--- NOTE | 2018-06-17 13:52 | NS.NUTBLAN_ITS ---
Date of service: 06/17/18 Time of Service: 13:40 Nutritional Consult ASSESSMENT: Nutrition consult requested for GERD nutrition therapy. Ms. Singletary reports that she would like to lose weight. She is 66 and 409 lbs. She describes a history of eating larger portions as well as not being able to be physically active. NUTRITIONAL DIAGNOSIS: Class 3 obesity related to excess energy intake and physical inactivity as evidenced by BMI of 64 kg/m2. INTERVENTION: Reviewed nutrition therapy for GERD and provided written materials. Encouraged Ms. Singletary to seek help with outpatient weight management nutrition therapy. She stated she would like to make an appointment with me as an outpatient for counseling. I set her up for June 30, 2018 at 1300. I also encouraged her to give a call to the [facility] F[facility] Program which is free and may be appropriate for her. She stated she would take the information. MONITORING AND EVALUATION: 1. Will monitor her progress while she is here. 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 2. Will evaluate her nutrition care plan ongoing and adjust as needed. Thank you for the consult Time Spent in Nutritional Counseling and Treatment: ABENA
[2018-06-17] MEDS: Mylanta Suspension 30 ML CUP PO (14:21)
[2018-06-17 14:57] LABS: BUN 11 mg/dL (7-18); CREATININE 0.75 mg/dL (0.55-1.02); Chloride 93 mmol/L (98-107); Glucose 302 mg/dL (70-100); Magnesium 2.1 mg/dL (1.8-2.4); Potassium 4.5 mmol/L (3.5-5.1); Sodium 133 mmol/L (136-145)
--- NOTE | 2018-06-17 15:01 | PT.INTREAT ---
Date of service: 06/17/18 Time of Service: 14:45 PT Notes [facility] Date: 06/17/18 SUBJECTIVE: Kenna states that she would like to go home. Kenna also reports that her legs feel weak and she has trouble breathing, which prevents her from exercising at home. OBJECTIVE: PAIN: No complaints of pain BED MOBILITY/TRANSFERS Sit-stand: I Stand-sit: I GAIT Assistive Device: FWW in p.m. Weight bearing: Full Assist: S Distance: 50' x2 in p.m Deviation: Standing rest after 75' Patient on 2L of supplemental Oxygen THEREX: Patient performed standing marches in place 2x30 seconds with SOB requiring seated rest ASSESSMENT: Patient was able to perform her activity this afternoon with only requiring a single rest break after 75 feet of ambulation with FWW under supervision. Patient was a little uncomfortable in the stomach but was able to tolerate. PLAN: Continue with PTs POC TREATMENT CODE/TIME: Session 2: 15 minutes; [id number]
[2018-06-17] MEDS: Omeprazole 20 MG CAPCR PO (15:04)
[2018-06-17 15:22] LABS: Abs Immature Grans 0.02 k/cumm (0.0-0.09); Absolute Lymphocyte Count 0.65 k/cumm (1.2-3.4); Absolute Monocyte Count 0.31 k/cumm (0.11-0.7); Absolute Neutrophil Count 9.79 k/cumm (1.2-6.7); HCT 44.9 % (36.0-46.0); HGB 13.5 g/dL (12.0-15.5); Immature Grans % 0.2; Mean Corp. HGB Concentration 30.1 g/dL (32.0-36.0); Mean Corpuscular Hemoglobin 26.5 pg (27.0-33.0); Mean Platelet Volume 10.2 fL (8.0-11.0); Monocytes % 2.9; Neutrophils % 90.9; Platelet Count 292 x1000/uL (130-400); RBC Distribution Width 14.9 % (11.7-14.6); White Blood Cell Count 10.77 k/cumm (4.4-10.8)
--- NOTE | 2018-06-17 16:48 | PHARADMIT ---
Admission Pharmacy Clinical Review pneumonia, COPD exacerbation Code Status Full Code Current Weight 186.03 kg Renally Cleared and Narrow Therapeutic Index Meds Crcl ~126.6 using lean body weight current meds okay QTc Value / Action Taken QTc 437 BP Control, Fever BP 143/71 afebrile Electrolytes reviewed Na 133 Cl 93 DVT Prophylaxis enoxaparin Opiate Usage / Scheduled Bowel Regimen Ordered no/prn Plt/SCr for Heparin / Enoxaparin plt 292 SCr 0.75 INR for Warfarin n/a H/H stable, WBC/Bands h/h 13.5/44.9 WBC 10.77 Antibiotic appropriateness ceftriaxone (day 2) and levofloxacin (day 6) Cultures and Sensitivities blood cultures- no growth @96H rapid flu- negative sputum culture- normal yane and matilda albicans(scant) Surgical ABX d/c within 24 hr n/a DM control / Insulin Dosing BG 302 none Heart Failure (Check EF%) (AMBAR's, B-Block, Diuretics) furosemide, metoprolol, IV to PO Switch n/a Home Meds Reviewed yes Home Meds Not Ordered ferrous sulfate, prednisone Comments
--- NOTE | 2018-06-17 18:19 | W.PM.PROGNOT ---
Date of Service Date of service: 06/17/18 Time of Service: 14:45 Assessment and Plan (1) CAP (community acquired pneumonia): Current visit: Yes Status: Acute Continue levofloxacin, rocephin. Suspect will require IV abx for 48 more hours. (2) Acute exacerbation of COPD with asthma: Current visit: Yes Status: Acute Start to decrease solumedrol. Wean O2 as tolerated. Continue Scheduled/prn nebs, symbicort, abx, antitusssives (3) Hypoxia: Current visit: Yes Status: Acute Multifactorial - due to CAP/Acute exacerbation of COPD, acute on chronic diastolic CHF, suspected pulmonary hypertension, OHS. Continue diuresis. Wean O2 as tolerated. Monitor strict I/O's and daily weights (4) Acute on chronic diastolic CHF (congestive heart failure): Current visit: Yes Status: Acute Continue lasix , monitoring Cr, I/O's and daily weights. (5) Obstructive sleep apnea: Current visit: Yes Status: Chronic Did not wear CPAP last night. RT/Case management are working on transferring services to a local respiratory [employer]. (6) Hiatal hernia: Current visit: No Status: Chronic change protonix to omeprazole, per patient request, continue ranitidine, add tums. 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 (11) Tobacco abuse: Current visit: Yes Status: Chronic advised to quit (12) Obesity hypoventilation syndrome: Current visit: Yes Status: Acute Needs outpatient pulmonary follow up and encouragement to loose weight. May require O2 on discharge. Continue BiPAP qHS. (13) Morbid obesity with BMI of 60.0-69.9, adult: Current visit: Yes Status: Acute Encourage weight loss. Nutrition consulted. (14) Discharge planning issues: Current visit: Yes Status: Acute Full code Case management/RT to coordinate transfer of patient's BiPAP services to a local company Would benefit from [facility], PFT's as outpatient, pulmonary follow up. (15) DVT prophylaxis: Current visit: Yes Status: Acute Lovenox Subjective Interval history since last seen: Kenna is feeling much better today, she states. She is still on oxygen (1 1/2 L), saturating 95%. The plan for today was to wean it. She states her ankles look great. She complains of reflux and requests that we try to switch her back to her omeprazole. She also usually takes tums. She denies dizziness, chest pain, nausea, vomiting. Cough is mostly nonproductive. Exam Narrative Exam Narrative: General: Very pleasant obese female, sitting in a chair wearing O2 (not tachypneic) HEENT: EOMI, MMM Heart: RRR, no m/r/g Lungs: very quiet wheezing on expiration B with minimal crackles at B bases GI: abdomen soft, nontender, nondistended Extremities: woody edema BLE's with a mild pitting component in the ankles - better today. Chronic venous stasis dermatitis. No clubbing or cyanosis. Objective Objective Clinical Data: Abnormal lab results 06/17/18 06/17/18 Range/Units 14:30 14:30 MCH 26.5 L (27.0-33.0) pg MCHC 30.1 L (32.0-36.0) g/dL RDW 14.9 H (11.7-14.6) % Absolute Neutrophils 9.79 H (1.2-6.7) k/cumm Absolute Lymphocytes 0.65 L (1.2-3.4) k/cumm Sodium 133 L (136-145) mmol/L Chloride 93 L (98-107) mmol/L Carbon Dioxide 37.0 H (21.0-32.0) mmol/L Glucose 302 H D (70-100) mg/dL Vital Signs Temperature 36.9 C 06/17/18 15:36 Temperature Source Tympanic 06/17/18 15:36 Pulse 71 06/17/18 15:36 Pulse Rhythm Regular 06/17/18 09:06 Pulse 95 H 06/12/18 21:30 Respiratory Rate 20 06/17/18 15:36 Respiratory Effort Non-Labored 06/17/18 09:06 Respiratory Depth Normal 06/17/18 09:06 Respiratory Pattern Normal 06/17/18 09:06 Blood Pressure 143/71 H 06/17/18 15:36 Blood Pressure Mean 78 01/31/19 20:15 Pulse Oximetry 94 L 06/17/18 15:36 Oxygen Delivery Method Nasal Cannula 06/17/18 15:36 Oxygen Flow Rate 1.5 06/17/18 15:36 Pain Level 0 06/17/18 11:45 Comment 06/16/18 15:55 Intake & Output 06/16/18 06/17/18 06/17/18 23:59 11:59 23:59 Intake Total 290 / 650 240 / 480 240 / 480 Balance 290 / 170 240 / 480 240 / 480 Weight 186.03 kg Intake: IV 50 / 50 Oral 240 / 600 240 / 480 240 / 480 Other: Urine Color Yellow Urine Appearance Clear Clear Comment voiding in toilet independantly Pt voids independently. Stool Characteristics Soft Laboratory Results WBC 10.77 k/cumm (4.4-10.8) 06/17/18 14:30 RBC 5.10 m/cumm (4.00-5.20) 06/17/18 14:30 Hgb 13.5 g/dL (12.0-15.5) 06/17/18 14:30 Hct 44.9 % (36.0-46.0) 06/17/18 14:30 MCV 88.0 fL (80-95) 06/17/18 14:30 MCH 26.5 pg (27.0-33.0) L 06/17/18 14:30 MCHC 30.1 g/dL (32.0-36.0) L 06/17/18 14:30 RDW 14.9 % (11.7-14.6) H 06/17/18 14:30 Plt Count 292 x1000/uL (130-400) 06/17/18 14:30 MPV 10.2 fL (8.0-11.0) 06/17/18 14:30 Immature Gran % 0.2 06/17/18 14:30 Neutrophils % 90.9 06/17/18 14:30 Band Neutrophils % 3.0 % 06/15/18 07:10 Lymphocytes % 6.0 06/17/18 14:30 Atypical Lymphs % 4 06/16/18 06:37 Monocytes % 2.9 06/17/18 14:30 Eosinophils % 0.0 06/17/18 14:30 Basophils % 0.0 06/17/18 14:30 Absolute Neutrophils 9.79 k/cumm (1.2-6.7) H 06/17/18 14:30 Absolute Lymphocytes 0.65 k/cumm (1.2-3.4) L 06/17/18 14:30 Absolute Monocytes 0.31 k/cumm (0.11-0.7) 06/17/18 14:30 Absolute Eosinophils 0.00 k/cumm (0.0-0.7) 06/17/18 14:30 Absolute Basophils 0.00 k/cumm (0.0-0.2) 06/17/18 14:30 Differential Comment Manual differential 06/16/18 06:37 RBC Morphology See below 06/16/18 06:37 Polychromasia Present 06/15/18 07:10 Hypochromasia 1+ 06/16/18 06:37 Basophilic Stippling Present 06/15/18 07:10 Anisocytosis 1+ 06/16/18 06:37 Stomatocytes 2+ 06/16/18 06:37 Sodium 133 mmol/L (136-145) L 06/17/18 14:30 Potassium 4.5 mmol/L (3.5-5.1) 06/17/18 14:30 Chloride 93 mmol/L (98-107) L 06/17/18 14:30 Carbon Dioxide 37.0 mmol/L (21.0-32.0) H 06/17/18 14:30 Anion Gap 3.0 mmol/L (3-11) 06/17/18 14:30 BUN 11 mg/dL (7-18) 06/17/18 14:30 Creatinine 0.75 mg/dL (0.55-1.02) 06/17/18 14:30 Estimated GFR/1.73 m2 >= 60.00 (mL/min/1.73m2) 06/17/18 14:30 Glucose 302 mg/dL (70-100) H D 06/17/18 14:30 Lactate 1.0 mmol/l (0.6-1.4) 06/12/18 18:00 Calcium 9.0 mg/dL (8.5-10.1) 06/17/18 14:30 Magnesium 2.1 mg/dL (1.8-2.4) 06/17/18 14:30 Total Bilirubin 1.0 mg/dL (0.2-1.0) 06/12/18 17:15 AST 20 U/L (15-37) 06/12/18 17:15 ALT 16 U/L (12-78) 06/12/18 17:15 Alkaline Phosphatase 113 U/L (46-116) 06/12/18 17:15 Troponin I < 0.02 ng/mL (0.00-0.06) 06/12/18 17:15 NT-Pro-B Natriuret Pep 358 pg/mL (-299) H 06/15/18 16:12 Total Protein 9.2 g/dL (6.4-8.2) H 06/12/18 17:15 Albumin 3.0 g/dL (3.4-5.0) L 06/12/18 17:15 Legionella Source (see note) 06/13/18 10:28 Legionella Reprt Status (see note) 06/13/18 10:28 Legionella Final Result (see note) 06/13/18 10:28 M. pneumoniae Source Sputum 06/10/18 05:50 M. pneumoniae (PCR) Negative 06/10/18 05:50 Ur Strep pneumoniae Ag Negative (Negative) 06/13/18 05:50
--- NOTE | 2018-06-17 18:34 | PDOC.CMPRO ---
Care Management Progress Note S/O: Kenna had a Nutritional Consult today and will follow up with Jolene as an outpatient for [facility] weight management. Jolene also recommended [facility] which Jolene reports is free. No change to overall plan. A: 42 y/o female admitted 06/12/18 for Pneumonia, COPD Exacerbation. P: Kenna will return home with no anticipated services once medically cleared per MD. She will follow up with Nutrition as well as her PCP and plan of care as prescribed. SHe will transport via private vehicle with her sister.
--- NOTE | 2018-06-17 18:45 | CMPROGNOTE_ITS ---
Care Management Progress Note S/O: Kenna had a Nutritional Consult today and will follow up with Jolene as an outpatient for [facility] weight management. Jolene also recommended [facility] which Jolene reports is free. No change to overall plan. A: 42 y/o female admitted 06/12/18 for Pneumonia, COPD Exacerbation. P: Kenna will return home with no anticipated services once medically cleared per MD. She will follow up with Nutrition as well as her PCP and plan of care as prescribed. SHe will transport via private vehicle with her sister.
--- NOTE | 2018-06-17 19:05 | NUR.NOTE ---
Nursing Note: Report received from YASMINE Walton. Patient is in stable condition, currently sitting up in the bedside chair, no report of pain or discomfort at this time, the bed is in the low and locked position, side rails up x2, call light within reach.
[2018-06-17] MEDS: methylPREDNISolone SUCC 125 MG VIAL 40 MG IVP (19:32)
[2018-06-17] MEDS: LEVOFLOXACIN 750 MG/150 ML BAG 100 MG IVPB (19:32)
--- NOTE | 2018-06-17 20:05 | NUR.NOTE ---
Nursing Note: Patient refused 20:00 dose of Omeprazole 40mg PO. Patient states I only take it once a day, I don't why they have it in there as twice a day, but it's not right. I will relay this information to the Clinical Coordinator.
[2018-06-17] MEDS: Enoxaparin 40 MG/0.4 ML SYR SC (21:14)
[2018-06-17] MEDS: diphenhydrAMINE 25 MG CAP 50 MG PO (21:14)
[2018-06-18] VITALS (10 sets, daily range): BP systolic 123–177; BP diastolic 63–83; PULSE 60–101; RESP 4–24; TEMP 36–37.1; O2SAT 88–96
[2018-06-18] MEDS: Albuterol/Ipratropium 3 ML UPD VIAL UPD ×2 (05:36→11:53)
[2018-06-18 07:49] LABS: Anion Gap 0.8 mmol/L (3-11); BUN 9 mg/dL (7-18); CO2 38.2 mmol/L (21.0-32.0); CREATININE 0.59 mg/dL (0.55-1.02); Calcium 9.3 mg/dL (8.5-10.1); Chloride 95 mmol/L (98-107); Glucose 187 mg/dL (70-100); Potassium 4.5 mmol/L (3.5-5.1); Sodium 134 mmol/L (136-145)
[2018-06-18] MEDS: guaiFENesin 600 MG TABCR 1200 MG PO ×2 (08:54→20:36)
[2018-06-18] MEDS: methylPREDNISolone SUCC 125 MG VIAL 40 MG IVP (08:55)
[2018-06-18] MEDS: Calcium Carbonate *TUMS* 500 MG CHEW PO (08:55)
[2018-06-18] MEDS: medroxyPROGESTERone 10 MG TAB PO (08:55)
[2018-06-18] MEDS: Benzonatate 200 MG CAP PO ×3 (08:55→20:36)
[2018-06-18] MEDS: Furosemide 20 MG/2 ML VIAL IVP (08:55)
[2018-06-18] MEDS: Metoprolol 25 MG TAB PO ×2 (08:55→20:36)
[2018-06-18] MEDS: Normal Saline Flush 10 ML SYR IVP ×3 (08:56→20:39)
[2018-06-18] MEDS: Omeprazole 20 MG CAPCR 40 MG PO ×2 (08:58→20:38)
--- NOTE | 2018-06-18 10:40 | PT.INTREAT ---
Date of service: 06/18/18 Time of Service: 10:40 PT Notes 06/18/18 SUBJECTIVE: Kenna stating she is feeling much better than she did yesterday. She has been off oxygen since 9:00 AM and is hoping to go home today. OBJECTIVE: Seated in recliner. Agreeable to PT treatment. TRANSFERS: Sit to stand: I Stand to sit: I GAIT: Device: FWW Weight bearing: Full Assist: S Distance: 200' Deviation: No stand rest break this morning. RA Vitals: At rest on room air: 92%. Post ambulation 84% recovering to 93% within one minutes time. ASSESSMENT: Tolerated PT well. She was encouraged hourly walks when she goes home and perform standing marching while here in the hospital. Her oxygen saturation did drop with ambulation but recovers quickly. Pt felt less SOB throughout treatment. PLAN: Continue current POC progressing toward's established goals. Treatment time: 15 minutes MONIQUE Gunter, COMPOSITION INSTRUCTOR
--- NOTE | 2018-06-18 15:08 | CMPROGNOTE_ITS ---
- If Service Date Differs Date of service: 06/18/18 Time of Service: 15:06 Care Management Progress Note S/O: Kenna is sitting up in her chair when this administrative underwriter visits this morning. She is pleasant and receptive to discussion. Kenna wore the bipap overnight and per report will have a repeat exercise oximetry today, as there is question as to whether home oxygen will be needed. No change in DC plan at this time, RT continues to work with Kenna on transferring her CPAP care to [facility]. A: 42 y/o female admitted 06/12/18 for Pneumonia, COPD Exacerbation. P: Kenna will return home with no anticipated services once medically cleared per MD. She will follow up with Nutrition as well as her PCP and plan of care as prescribed. SHe will transport via private vehicle with her sister.
--- NOTE | 2018-06-18 15:22 | PT.INTREAT ---
Date of service: 06/18/18 Time of Service: 15:22 PT Notes Inpatient Physical Therapy Treatment Note [facility] Date: 06/18/18 PRECAUTIONS:Standard SUBJECTIVE: Pt reports that she is going home tomorrow. She doesn't offer any complaints to me at this time. OBJECTIVE: BED MOBILITY/TRANSFERS Sit-stand:SBA Stand-sit: SBA GAIT Assistive Device: FWW Weight bearing: Full Assist: SBA Distance: [id number] THEREX: Pt completed UE and LE ther ex as per flow sheet while in the seated position. Pt's oxygen after ambulation was 82% after approx 2 min rest 90%. ASSESSMENT: Pt tolerated today's session well. PLAN: Cont as per PT POC. TREATMENT CODE/TIME: 2:45-3:05 (20) TA
--- NOTE | 2018-06-18 15:26 | PTTR_ITS ---
Date of service: 06/18/18 Time of Service: 15:22 PT Notes Inpatient Physical Therapy Treatment Note [facility] Date: 06/18/18 PRECAUTIONS:Standard SUBJECTIVE: Pt reports that she is going home tomorrow. She doesn't offer any complaints to me at this time. OBJECTIVE: BED MOBILITY/TRANSFERS Sit-stand:SBA Stand-sit: SBA GAIT Assistive Device: FWW Weight bearing: Full Assist: SBA Distance: [id number] THEREX: Pt completed UE and LE ther ex as per flow sheet while in the seated position. Pt's oxygen after ambulation was 82% after approx 2 min rest 90%. ASSESSMENT: Pt tolerated today's session well. PLAN: Cont as per PT POC. TREATMENT CODE/TIME: 2:45-3:05 (20) TA
--- NOTE | 2018-06-18 15:41 | PGE_ITS ---
Documented by User: Jie Rizo NP 06/18/18 16:11 Date of Service Date of service: 06/18/18 Time of Service: 15:39 Assessment and Plan (1) CAP (community acquired pneumonia): Current visit: Yes Status: Resolved Improving, currently on day #6 of IV Levaquin and day #3 of IV Rocephin. Continue IV antibiotics on current regimen. (2) Acute exacerbation of COPD with asthma: Current visit: Yes Status: Acute Improving, no longer hypoxic. Continue to taper steroids, transition to oral prednisone today. Continue as needed nebulizer treatments, Symbicort, antibiotics and antitussives. (3) Acute on chronic diastolic CHF (congestive heart failure): Current visit: Yes Status: Resolved With hypoxia. Continue diuresis, transition to oral Lasix, continue to monitor renal function, intake and output and daily weights. Consider discharge home with oral Lasix to be taken as needed for edema. (4) Obstructive sleep apnea: Current visit: Yes Status: Chronic On BiPAP therapy. Continue BiPAP. Overnight oximetry tonight. (5) GERD (gastroesophageal reflux disease): Current visit: Yes Status: Chronic Improved on home PPI regimen. Continue omeprazole. (6) Hiatal hernia: Current visit: No Status: Chronic As above. Continue PPI. (7) Iron deficiency anemia secondary to blood loss (chronic): Current visit: Yes Status: Chronic Hemoglobin and hematocrit stable. discontinue daily CBC. (8) Hyponatremia: Current visit: Yes Status: Acute Improving with diuresis, likely related to fluid retention. (9) Obesity hypoventilation syndrome: Current visit: Yes Status: Acute Continue BiPAP while asleep. Will need outpatient pulmonology follow-up. Encourage weight loss. (10) DVT prophylaxis: Current visit: Yes Status: Acute Subcutaneous Lovenox. (11) Discharge planning issues: Current visit: Yes Status: Acute Is a full code. Care management and respiratory therapy are coordinating for local BiPAP services. Referral to [facility]. Will need PFTs as an outpatient and pulmonary follow-up. This case was discussed with Dr. Butts who is in agreement. Subjective Interval history since last seen: Kenna is a 42-year-old female with history of obesity, COPD, current smoker, aortic stenosis GERD, obstructive sleep apnea wears BiPAP, congestive heart failure who is currently being treated for community-acquired pneumonia and COPD exacerbation she is currently on day #6 of IV Levaquin, day #3 of IV Rocephin. Steroids are being tapered. She reports feeling better today she is on room air, saturating in the 90s. She denies shortness of breath and wheezing, she coughs occasionally, producing whi te to yellow sputum. She denies chest pain/pressure, palpitations, she is eating and drinking and tolerating her diet, no nausea, vomiting or diarrhea. She has not had any abdominal discomfort or acid reflux since restarting her PPI. She reports that the edema in her ankles has improved drastically since she has been here on IV Lasix. Exam Narrative Exam Narrative: General: Very pleasant obese female, sitting up in the chair in no acute distress, answers questions appropriately, able to speak in complete sentences with no shortness of breath. HEENT: Pupils equal and round, EOMI, mucous membranes moist, very poor dentition. Heart: Regular rate and rhythm with no murmur appreciated. Lungs: Respirations even and unlabored, wheezing noted bilaterally in upper lobes, no rales appreciated. GI: abdomen soft, nontender, nondistended Extremities: woody edema BLE's, appears improved with wrinkled skin. Chronic venous stasis dermatitis. No clubbing or cyanosis. Objective Objective Clinical Data: Abnormal lab results 06/18/18 Range/Units 06:45 Sodium 134 L (136-145) mmol/L Chloride 95 L (98-107) mmol/L Carbon Dioxide 38.2 H (21.0-32.0) mmol/L Anion Gap 0.8 L (3-11) mmol/L Glucose 187 H D (70-100) mg/dL Vital Signs Temperature 37.1 C 06/18/18 15:16 Temperature Source Tympanic 06/18/18 15:16 Pulse 74 06/18/18 15:16 Pulse Rhythm Regular 06/18/18 09:06 Pulse 95 H 06/12/18 21:30 Respiratory Rate 20 06/18/18 15:16 Respiratory Effort Non-Labored 06/18/18 09:06 Respiratory Depth Normal 06/18/18 09:06 Respiratory Pattern Normal 06/18/18 09:06 Blood Pressure 153/73 H 06/18/18 15:16 Blood Pressure Mean 78 06/12/18 20:15 Pulse Oximetry 91 L 06/18/18 15:16 Oxygen Delivery Method Room Air 06/18/18 15:16 Oxygen Flow Rate 0 06/18/18 15:16 Pain Level 0 06/18/18 11:34 Comment 06/16/18 15:55 Intake & Output 06/17/18 06/18/18 06/18/18 23:59 11:59 23:59 Intake Total 920 / 1160 540 / 1020 480 / 1020 Output Total 800 / 800 Balance 920 / 1160 -260 / 220 480 / 220 Weight 183.1 kg Intake: IV 200 / 200 Oral 720 / 960 540 / 1020 480 / 1020 Output: Urine 800 / 800 Other: Urine Color Yellow Urine Appearance Clear Clear Laboratory Results WBC 10.77 k/cumm (4.4-10.8) 06/17/18 14:30 RBC 5.10 m/cumm (4.00-5.20) 06/17/18 14:30 Hgb 13.5 g/dL (12.0-15.5) 06/17/18 14:30 Hct 44.9 % (36.0-46.0) 06/17/18 14:30 MCV 88.0 fL (80-95) 06/17/18 14:30 MCH 26.5 pg (27.0-33.0) L 06/17/18 14:30 MCHC 30.1 g/dL (32.0-36.0) L 06/17/18 14:30 RDW 14.9 % (11.7-14.6) H 06/17/18 14:30 Plt Count 292 x1000/uL (130-400) 06/17/18 14:30 MPV 10.2 fL (8.0-11.0) 06/17/18 14:30 Immature Gran % 0.2 06/17/18 14:30 Neutrophils % 90.9 06/17/18 14:30 Band Neutrophils % 3.0 % 06/15/18 07:10 Lymphocytes % 6.0 06/17/18 14:30 Atypical Lymphs % 4 06/16/18 06:37 Monocytes % 2.9 06/17/18 14:30 Eosinophils % 0.0 06/17/18 14:30 Basophils % 0.0 06/17/18 14:30 Absolute Neutrophils 9.79 k/cumm (1.2-6.7) H 06/17/18 14:30 Absolute Lymphocytes 0.65 k/cumm (1.2-3.4) L 06/17/18 14:30 Absolute Monocytes 0.31 k/cumm (0.11-0.7) 06/17/18 14:30 Absolute Eosinophils 0.00 k/cumm (0.0-0.7) 06/17/18 14:30 Absolute Basophils 0.00 k/cumm (0.0-0.2) 06/17/18 14:30 Differential Comment Manual differential 06/16/18 06:37 RBC Morphology See below 06/16/18 06:37 Polychromasia Present 06/15/18 07:10 Hypochromasia 1+ 06/16/18 06:37 Basophilic Stippling Present 06/15/18 07:10 Anisocytosis 1+ 06/16/18 06:37 Stomatocytes 2+ 06/16/18 06:37 Sodium 134 mmol/L (136-145) L 06/18/18 06:45 Potassium 4.5 mmol/L (3.5-5.1) 06/18/18 06:45 Chloride 95 mmol/L (98-107) L 06/18/18 06:45 Carbon Dioxide 38.2 mmol/L (21.0-32.0) H 06/18/18 06:45 Anion Gap 0.8 mmol/L (3-11) L 06/18/18 06:45 BUN 9 mg/dL (7-18) 06/18/18 06:45 Creatinine 0.59 mg/dL (0.55-1.02) 06/18/18 06:45 Estimated GFR/1.73 m2 >= 60.00 (mL/min/1.73m2) 06/18/18 06:45 Glucose 187 mg/dL (70-100) H D 06/18/18 06:45 Lactate 1.0 mmol/l (0.6-1.4) 06/12/18 18:00 Calcium 9.3 mg/dL (8.5-10.1) 06/18/18 06:45 Magnesium 2.1 mg/dL (1.8-2.4) 06/17/18 14:30 Total Bilirubin 1.0 mg/dL (0.2-1.0) 06/12/18 17:15 AST 20 U/L (15-37) 06/12/18 17:15 ALT 16 U/L (12-78) 06/12/18 17:15 Alkaline Phosphatase 113 U/L (46-116) 06/12/18 17:15 Troponin I < 0.02 ng/mL (0.00-0.06) 06/12/18 17:15 NT-Pro-B Natriuret Pep 358 pg/mL (-299) H 06/15/18 16:12 Total Protein 9.2 g/dL (6.4-8.2) H 06/12/18 17:15 Albumin 3.0 g/dL (3.4-5.0) L 06/12/18 17:15 Legionella Source (see note) 06/13/18 10:28 Legionella Reprt Status (see note) 06/13/18 10:28 L.pneumophila Antibody Cancelled 06/12/18 17:15 Legionella Final Result (see note) 06/13/18 10:28 M. pneumoniae Source Sputum 06/10/18 05:50 M. pneumoniae (PCR) Negative 06/10/18 05:50 Ur Strep pneumoniae Ag Negative (Negative) 06/13/18 05:50 Documented by User: Radha Butts MD 06/19/18 15:18
[2018-06-18] MEDS: Normal Saline 500 ML 100 ML IV (18:00)
[2018-06-18] MEDS: predniSONE 20 MG TAB 40 MG PO (20:37)
[2018-06-18] MEDS: LEVOFLOXACIN 750 MG/150 ML BAG 100 MG IVPB (20:39)
[2018-06-18] MEDS: diphenhydrAMINE 25 MG CAP 50 MG PO (21:41)
[2018-06-18] MEDS: Enoxaparin 40 MG/0.4 ML SYR SC (21:42)
[2018-06-19] VITALS (9 sets, daily range): BP systolic 133–164; BP diastolic 55–89; PULSE 56–98; RESP 18–24; TEMP 36.4–36.9; O2SAT 86–96
--- NOTE | 2018-06-19 02:00 | NUR.NOTE ---
Nursing Note: Patient received on recliner chair all the time.Refused to take 2 caps of omneprazole at HS, took only 1 cap. RT instructed patient to put monitor as soon as she will put on the bipap. At 01:00 hours, patient self applied the bipap already with settings and monitor as instructed. Will continue to monitor.
[2018-06-19] MEDS: Omeprazole 20 MG CAPCR 40 MG PO ×2 (08:37→19:44)
[2018-06-19] MEDS: Normal Saline Flush 10 ML SYR IVP (08:37)
[2018-06-19] MEDS: Metoprolol 25 MG TAB PO ×2 (08:38→19:45)
[2018-06-19] MEDS: medroxyPROGESTERone 10 MG TAB PO (08:38)
[2018-06-19] MEDS: Calcium Carbonate *TUMS* 500 MG CHEW PO (08:38)
[2018-06-19] MEDS: Benzonatate 200 MG CAP PO ×3 (08:38→19:44)
[2018-06-19] MEDS: Furosemide 20 MG TAB PO (08:39)
[2018-06-19] MEDS: predniSONE 20 MG TAB 40 MG PO ×2 (08:39→19:45)
--- NOTE | 2018-06-19 12:11 | DSE_ITS ---
Addendum entered and electronically signed by Jie Rizo NP 06/19/18 17:09: Other treatments have been tried and have failed, oxygen is the only treatment left. Addendum entered and electronically signed by Radha Butts M.D. 06/19/18 15:34: Patient's pneumonia is fully resolved and the patient is at her baseline stable chronic state at the time of discharge. Addendum entered and electronically signed by Jie Rizo NP 06/19/18 15:13: CAP RESOLVED AT TIME OF DISCHARGE. 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 HEENT: Pupils equal and round, EOMI, mucous membranes moist, very poor dentition, hirsutism to face and neck. Heart: Regular rate and rhythm with no murmur appreciated. Lungs: Respirations even and unlabored, no wheezing, rales or rhonchi. GI: abdomen soft, nontender, nondistended Extremities: woody edema BLE's, improved. Chronic venous stasis dermatitis. No clubbing or cyanosis. DS: Data Vitals/I&O Vitals and I&O: Vital Signs Temperature 36.9 C 06/19/18 11:47 Temperature Source Tympanic 06/19/18 11:47 Pulse 58 L 06/19/18 11:47 Pulse Rhythm Regular 06/19/18 08:43 Pulse 95 H 06/12/18 21:30 Respiratory Rate 20 06/19/18 11:47 Respiratory Effort Non-Labored 06/19/18 08:43 Respiratory Depth Normal 06/19/18 08:43 Respiratory Pattern Normal 06/19/18 08:43 Blood Pressure 138/55 L 06/19/18 11:47 Blood Pressure Mean 78 06/12/18 20:15 Pulse Oximetry 93 L 06/19/18 11:47 Oxygen Delivery Method Room Air 06/19/18 11:47 Oxygen Flow Rate 0 06/19/18 11:47 Pain Level 0 06/19/18 04:56 Comment 06/19/18 04:56 Intake & Output 06/18/18 06/19/18 06/19/18 23:59 11:59 23:59 Intake Total 1186.667 / 1726.667 540 / 540 Balance 1186.667 / 926.667 540 / 540 Weight 181.4 kg Intake: IV 226.667 / 226.667 Oral 960 / 1500 540 / 540 Other: Urine Appearance Clear Comment voiding independently in bathroom Completed studies during hospitalization [Text1]: 06/09/2017: PA AND LATERAL CHEST: There are no prior comparison exams. The exam is limited by the patient's body habitus. The heart size is within normal limits. There is a question of some pulmonary artery prominence and mild peribronchial thickening as well as some increased interstitial markings which could indicate mild CHF. No focal area of consolidation or effusion is seen. IMPRESSION: Limited exam. Question of mild CHF. CT ANGIOGRAPHY OF THE CHEST: 06/12/18 CT angiography of the chest was performed with a bolus infusion of 88 cc Omnipaque 350. The examination is technically limited by the patient's body habitus and motion with suboptimal contrast bolus also noted. Images obtained through the upper abdomen show grossly unremarkable appearance of visualized portions of the liver and spleen. Mild prominence of mediastinal lymph nodes noted with the largest node a right hilar node measuring about 23 mm in greatest diameter. No gross pulmonary embolic disease in central pulmonary arteries or major branches. No thoracic aortic dissection or aneurysm. No pleural effusion seen. There are areas of apparent atelectasis and consolidation involving both lungs. The findings are suspicious for multifocal pneumonia. CONCLUSION: Findings suspicious for multifocal pneumonia. Appropriate follow up studies requested. No major pulmonary embolus identified on this somewhat l imited examination. 06/14/18: PA AND LATERAL CHEST: Comparison is made with 09 June 2018 The exam was limited by the patient's body habitus. The heart is enlarged. There are increased patchy densities seen in the left upper lobe. There is also a question of mildly increased densities at both bases. No effusions are seen. IMPRESSION: Left upper lobe infiltrate, question of additional basilar infiltrates vs atelectasis. [facility] Medical History Anemia (Chronic) Fatty infiltration of liver (Chronic) Sleep apnea (Chronic) Atypical nevi (Chronic) Internal hemorrhoids (Chronic) Hernia, diaphragmatic (Chronic) Chronic obstructive pulmonary disease (Chronic) High grade squamous 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) Lymph edema (Chronic) Tobacco use disorder (Chronic) Irregular menses (Chronic) Anemia, iron deficiency (Chronic) Obstructive sleep apnea (Chronic) Hiatal hernia (Chronic) Tobacco abuse (Chronic) GERD (gastroesophageal reflux disease) (Chronic) 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) Aortic stenosis (Chronic 04/17/18) LVH (left ventricular hypertrophy) (Chronic 04/17/18) Lymphedema (Chronic) COPD (chronic obstructive pulmonary disease) (Chronic) Morbid obesity (Chronic) Atypical squamous cells of undetermined significance on cytologic smear of cervix (ASC-US) (Acute) Disease of nail (Acute) Alcohol abuse (Chronic) Dysfunctional uterine bleeding (Resolved) Chronic GERD Diastasis recti Heart murmur Menorrhagia with irregular cycle Morbid obesity with BMI of 50.0-59.9, adult Transfusion history Social History Smoking and Tabacco status: Current every day tobacco type: cigarettes alcohol intake: current alcohol intake frequency: holidays/special occasions only Documented by User: Radha Butts MD 06/19/18 15:16 DS: Diagnosis Discharge Diagnosis (1) CAP (community acquired pneumonia): Status: Resolved (2) Acute on chronic diastolic CHF (congestive heart failure): Status: Resolved (3) Obstructive sleep apnea: Status: Chronic (4) GERD (gastroesophageal reflux disease): Status: Chronic (5) Obesity hypoventilation syndrome: Status: Acute (6) Acute exacerbation of chronic obstructive pulmonary disease (COPD): Status: Acute (7) Hypoxia: Status: Acute (8) Morbid obesity with BMI of 60.0-69.9, adult: Status: Acute (9) Tobacco abuse: Status: Chronic [facility] Medical History Anemia (Chronic) Fatty infiltration of liver (Chronic) Sleep apnea (Chronic) Atypical nevi (Chronic) Internal hemorrhoids (Chronic) Hernia, diaphragmatic (Chronic) Chronic obstructive pulmonary disease (Chronic) High grade squamous 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) Lymph edema (Chronic) Tobacco use disorder (Chronic) Irregular menses (Chronic) Anemia, iron deficiency (Chronic) Obstructive sleep apnea (Chronic) Hiatal hernia (Chronic) Tobacco abuse (Chronic) GERD (gastroesophageal reflux disease) (Chronic) 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) Aortic stenosis (Chronic 04/17/18) LVH (left ventricular hypertrophy) (Chronic 04/17/18) Lymphedema (Chronic) COPD (chronic obstructive pulmonary disease) (Chronic) Morbid obesity (Chronic) Atypical squamous cells of undetermined significance on cytologic smear of cervix (ASC-US) (Acute) Disease of nail (Acute) Alcohol abuse (Chronic) Dysfunctional uterine bleeding (Resolved) Chronic GERD Diastasis recti Heart murmur Menorrhagia with irregular cycle Morbid obesity with BMI of 50.0-59.9, adult Transfusion history Social History Smoking and Tabacco status: Current every day tobacco type: cigarettes alcohol intake: current alcohol intake frequency: holidays/special occasions only
--- NOTE | 2018-06-19 13:09 | INDS_ITS ---
Date of service: 06/19/18 Time of Service: 11:30 PT Notes Date: 06/19/18 Referring Doctor: Ashley Cancino NP PT Orders: PT CONSULT: weakness Precautions: Standard Treatment dates: 06/15/2018?06/19/2018 Patient Profile/Admitting Diagnosis: Presented to ER on 06/12/18 in acute respiratory distress with tachypnea, O2 sat of 70% on room air. Differential diagnosis revealed acute pneumonia with COPD exacerbation, on top of other chronic multiple comoridities to include morbid obesity and LE lymphedema. She is participated in PT intervention 1-2 times per day for the past 5 days, for a total of 8 sessions. Home Situation: Lives in a private home with her , father, brother and brother's girlfriend. Does not work. She lives on main floor of home, with no stairs to enter. She does not drive. Premorbid level of function: I, WNL, no AD, No O2 support. Current Functional Limitations: Dependent on walker for short distance ambulation due to SOB, and weakness with struggle to move her heavy LE's. Equipment Owned/DME: Walker Subjective: Kenna states that she has just returned from a walk with respiratory therapy. She is having a fair amount of left foot pain due to a callus, which has bothered her chronically. She states that she is not up for walking at time of PT session. I did return 60 minutes later, and patient again declines walking due to foot pain. He states that otherwise she is feeling well, and is anxious to return home. Objective: General Observation: Found sitting, watching tv. On room air. Good color. Morbidly obese. Poor hygeine, and skin dryness and discoloration of LE's due to her weight and lymphedema. Mental Status: A & O x3 Pain: 0/10 ROM: Right Upper Extremity: WNL Left Upper Extremity: WNL Right Lower Extremity: Grossly WFL, with hip limitations related to abdominal panus Left Lower Extremity: Grossly WFL, with hip limitations related to abdominal p anus. Strength: Right Upper Extremity: Grossly 5/5 Left Upper Extremity: Grossly 5/5 B Lower Extremities: Hip flexion 5/5. Quads 4+/5. Ankle dorsiflexion 3/5 or greater. Bed Mobility/Transfers: Sit <> stand I Stand to sit: Independent Bed to chair: Independent without assistive device Chair to bed: Independent without assistive device Gait: Patient declines ambulation today, however was able to ambulate 115 feet x2 with FW W, supervision, room air on 06/18/18. Balance: Static Sitting: Good Dynamic Sitting: Good Static Standing: Good. (-) [place]. She's able to perform small SARA standing both with eyes open and eyes closed for 10 seconds each. Dynamic Standing: Good. She's able to demonstrate active shoulder flexion and AB in small SARA position with supervision only. Treatment: Today's session consisted of re-evaluation, with patient declining further treatment. Informed Consent/Education: Patient instructed in purpose of PT consult and plan of care. Assessment: Patient is a 42 year old female referred to physical therapy services with the diagnosis of weakness, secondary to acute pneumonia and [employer] exacerbation, with multiple contributing comorbidites of morbid obesity and B LE lymphedema. Patient has participated in 8 PT sessions, with significant improvements in mobility and activity tolerance during that time. She is anxious to return home, and is working with respiratory therapy to address her supplemental oxygen needs. She has been encouraged to remain active at home, and is now appropriate for DC from PT in acute care setting as all rehab goals have been met. Goals: Goals X1 week 1. Supine-Sit I (MET) 2. Sit-Supine I(MET) 3. Sit-Stand I(MET) 4. Stand-Sit I(MET) 5. Bed-Chair I(MET) 6. Chair-Bed I(MET) 7. Gait 50 ft, walker, stable O2 without O2 support. (MET) 8. Stairs N/A 9. Independent with home exercise program I(MET) 10. Balance Good(MET) Plan of Care/Treatment Plan: DC from PT in acute care setting DISCHARGE RECOMMENDATIONS: Home with family TREATMENT CODE/TIME: 15 minutes ([id number])
--- NOTE | 2018-06-19 14:37 | PDOC.CMDIS ---
- If Service Date Differs Date of service: 06/19/18 Time of Service: 14:37 LACE Index Scoring Tool - Questions: Length of Stay (in days): 7 - 13 Acuity (Admit via E.D.?): Yes Comorbidities: Chronic Pulmonary Disease E.D. Visits: 5 - Answers: Total Score: 14 Risk of Readmission: High Risk Care Management Discharge Reason for Hospitalization: Acute pneumonitis Discharge Plan: Kenna will return home today with no services. She will have her CPAP equipment arranged through [facility] which RT Ludwig, will facilitate, as well as home oxygen. Kenna's sister to transport her. Patient/Family Education Needs: Review DC instructions, any limitations, and discuss 'Ask Me Three' Services Needed at Discharge: Oxygen Therapy ([facility])
--- NOTE | 2018-06-19 14:46 | CMDISCH_ITS ---
- If Service Date Differs Date of service: 06/19/18 Time of Service: 14:37 LACE Index Scoring Tool - Questions: Length of Stay (in days): 7 - 13 Acuity (Admit via E.D.?): Yes Comorbidities: Chronic Pulmonary Disease E.D. Visits: 5 - Answers: Total Score: 14 Risk of Readmission: High Risk Care Management Discharge Reason for Hospitalization: Acute pneumonitis Discharge Plan: Kenna will return home today with no services. She will have her CPAP equipment arranged through [facility] which RT Ludwig, will facilitate, as well as home oxygen. Kenna's sister to transport her. Patient/Family Education Needs: Review DC instructions, any limitations, and discuss 'Ask Me Three' Services Needed at Discharge: Oxygen Therapy ([facility])
--- NOTE | 2018-06-19 15:03 | CHAPLAIN ---
Kenna was dressed and sitting up in her chair ready to be discharged when I visited.
--- NOTE | 2018-06-19 17:59 | PGE_ITS ---
Date of Service Date of service: 06/19/18 Time of Service: 17:57 Subjective Interval history since last seen: Unfortunately, RT was unable to set up home oxygen for this patient and it is not safe to send her home without oxygen. She will remain in house until oxygen is successfully set up in her home. She has a working BiPAP at home. She will transition to a local [employer] for a new BiPAP, RT is currently working on this process. Objective Objective Clinical Data: Vital Signs Temperature 36.6 C 06/19/18 15:35 Temperature Source Core 06/19/18 15:35 Pulse 60 06/19/18 15:35 Pulse Rhythm Regular 06/19/18 15:35 Pulse 95 H 06/12/18 21:30 Respiratory Rate 18 06/19/18 15:35 Respiratory Effort Non-Labored 06/19/18 15:35 Respiratory Depth Normal 06/19/18 15:35 Respiratory Pattern Normal 06/19/18 15:35 Blood Pressure 160/89 H 06/19/18 15:35 Blood Pressure Mean 78 06/12/18 20:15 Pulse Oximetry 92 L 06/19/18 15:35 Oxygen Delivery Method Room Air 06/19/18 15:35 Oxygen Flow Rate 0 06/19/18 15:35 Pain Level 0 06/19/18 15:35 Comment 06/19/18 04:56 Intake & Output 06/18/18 06/19/18 06/19/18 23:59 11:59 23:59 Intake Total 1186.667 / 1726.667 540 / 1020 480 / 1020 Balance 1186.667 / 926.667 540 / 1020 480 / 1020 Weight 181.4 kg Intake: IV 226.667 / 226.667 Oral 960 / 1500 540 / 1020 480 / 1020 Other: Urine Appearance Clear Comment voiding independently in bathroom voiding independently in toilet throughout shift Voiding ad leonardo in toilet. Urine not seen at this time; pt denies sx. Voiding Methods Toilet Laboratory Results WBC 10.77 k/cumm (4.4-10.8) 06/17/18 14:30 RBC 5.10 m/cumm (4.00-5.20) 06/17/18 14:30 Hgb 13.5 g/dL (12.0-15.5) 06/17/18 14:30 Hct 44.9 % (36.0-46.0) 06/17/18 14:30 MCV 88.0 fL (80-95) 06/17/18 14:30 MCH 26.5 pg (27.0-33.0) L 06/17/18 14:30 MCHC 30.1 g/dL (32.0-36.0) L 06/17/18 14:30 RDW 14.9 % (11.7-14.6) H 06/17/18 14:30 Plt Count 292 x1000/uL (130-400) 06/17/18 14:30 MPV 10.2 fL (8.0-11.0) 06/17/18 14:30 Immature Gran % 0.2 06/17/18 14:30 Neutrophils % 90.9 06/17/18 14:30 Band Neutrophils % 3.0 % 06/15/18 07:10 Lymphocytes % 6.0 06/17/18 14:30 Atypical Lymphs % 4 06/16/18 06:37 Monocytes % 2.9 06/17/18 14:30 Eosinophils % 0.0 06/17/18 14:30 Basophils % 0.0 06/17/18 14:30 Absolute Neutrophils 9.79 k/cumm (1.2-6.7) H 06/17/18 14:30 Absolute Lymphocytes 0.65 k/cumm (1.2-3.4) L 06/17/18 14:30 Absolute Monocytes 0.31 k/cumm (0.11-0.7) 06/17/18 14:30 Absolute Eosinophils 0.00 k/cumm (0.0-0.7) 06/17/18 14:30 Absolute Basophils 0.00 k/cumm (0.0-0.2) 06/17/18 14:30 Differential Comment Manual differential 06/16/18 06:37 RBC Morphology See below 06/16/18 06:37 Polychromasia Present 06/15/18 07:10 Hypochromasia 1+ 06/16/18 06:37 Basophilic Stippling Present 06/15/18 07:10 Anisocytosis 1+ 06/16/18 06:37 Stomatocytes 2+ 06/16/18 06:37 Sodium 134 mmol/L (136-145) L 06/18/18 06:45 Potassium 4.5 mmol/L (3.5-5.1) 06/18/18 06:45 Chloride 95 mmol/L (98-107) L 06/18/18 06:45 Carbon Dioxide 38.2 mmol/L (21.0-32.0) H 06/18/18 06:45 Anion Gap 0.8 mmol/L (3-11) L 06/18/18 06:45 BUN 9 mg/dL (7-18) 06/18/18 06:45 Creatinine 0.59 mg/dL (0.55-1.02) 06/18/18 06:45 Estimated GFR/1.73 m2 >= 60.00 (mL/min/1.73m2) 06/18/18 06:45 Glucose 187 mg/dL (70-100) H D 06/18/18 06:45 Lactate 1.0 mmol/l (0.6-1.4) 06/12/18 18:00 Calcium 9.3 mg/dL (8.5-10.1) 06/18/18 06:45 Magnesium 2.1 mg/dL (1.8-2.4) 06/17/18 14:30 Total Bilirubin 1.0 mg/dL (0.2-1.0) 06/12/18 17:15 AST 20 U/L (15-37) 06/12/18 17:15 ALT 16 U/L (12-78) 06/12/18 17:15 Alkaline Phosphatase 113 U/L (46-116) 06/12/18 17:15 Troponin I < 0.02 ng/mL (0.00-0.06) 06/12/18 17:15 NT-Pro-B Natriuret Pep 358 pg/mL (-299) H 06/15/18 16:12 Total Protein 9.2 g/dL (6.4-8.2) H 06/12/18 17:15 Albumin 3.0 g/dL (3.4-5.0) L 06/12/18 17:15 Legionella Source (see note) 06/13/18 10:28 Legionella Reprt Status (see note) 06/13/18 10:28 L.pneumophila Antibody Cancelled 06/12/18 17:15 Legionella Final Result (see note) 06/13/18 10:28 M. pneumoniae Source Sputum 06/10/18 05:50 M. pneumoniae (PCR) Negative 06/10/18 05:50 Ur Strep pneumoniae Ag Negative (Negative) 06/13/18 05:50
[2018-06-19] MEDS: guaiFENesin 600 MG TABCR 1200 MG PO (19:45)
[2018-06-19] MEDS: Enoxaparin 40 MG/0.4 ML SYR SC (21:13)
[2018-06-19] MEDS: diphenhydrAMINE 25 MG CAP 50 MG PO (21:13)
[2018-06-20 07:30] VITALS: BP 155/84; PULSE 55; RESP 19; TEMP 36.5; O2SAT 94
[2018-06-20] MEDS: Benzonatate 200 MG CAP PO ×2 (08:01→13:17)
[2018-06-20] MEDS: medroxyPROGESTERone 10 MG TAB PO (08:01)
[2018-06-20] MEDS: predniSONE 20 MG TAB 40 MG PO (08:01)
[2018-06-20] MEDS: Metoprolol 25 MG TAB PO (08:01)
[2018-06-20] MEDS: Omeprazole 20 MG CAPCR 40 MG PO (08:01)
[2018-06-20] MEDS: guaiFENesin 600 MG TABCR 1200 MG PO (08:02)
[2018-06-20 11:20] VITALS: BP 135/74; PULSE 63; RESP 20; TEMP 36.5; O2SAT 97
[2018-06-20 11:51] VITALS: PULSE 63; PULSE 67; PULSE 81; RESP 20; RESP 22; O2SAT 91; O2SAT 93; O2SAT 99
--- NOTE | 2018-06-20 13:13 | CMDISCH_ITS ---
- If Service Date Differs Date of service: 06/20/18 Time of Service: 13:11 LACE Index Scoring Tool - Questions: Length of Stay (in days): 7 - 13 Acuity (Admit via E.D.?): Yes Comorbidities: Chronic Pulmonary Disease E.D. Visits: 5 - Answers: Total Score: 14 Risk of Readmission: High Risk Care Management Discharge Reason for Hospitalization: Acute pneumonitis Discharge Plan: Kenna will return home today with no services. She was scheduled to DC yesterday, however oxygen was not facilitated prior to DC. Candida RT, is facilitating home oxygen, as well as supplies through [facility]. Kenna's sister will transport her home today. Patient/Family Education Needs: Review DC instructions, any limitations, and discuss 'Ask Me Three' Services Needed at Discharge: Oxygen Therapy ([facility])
== END 2018-06-20 14:13 | disposition home or self-care (01) | DRG 193 ==
LOC: ER 19:56 → MS 20:37
PROVIDERS: Internal Medicine; Nurse Practitioner Family; Admitting Provider Internal Medicine; Emergency Provider Student in an Organized Health Care Education/Training Program; PCP Specialist/Technologist Athletic Trainer; Visit Provider Internal Medicine
DX: J18.1 Lobar pneumonia, unspecified organism (principal); I50.33 Acute on chronic diastolic (congestive) heart failure; J44.0 Chronic obstructive pulmonary disease with (acute) lower respiratory infection; J44.1 Chronic obstructive pulmonary disease with (acute) exacerbation; E87.1 Hypo-osmolality and hyponatremia; E66.2 Morbid (severe) obesity with alveolar hypoventilation; Z68.44 Body mass index [BMI] 60.0-69.9, adult; R06.03 Acute respiratory distress; R09.02 Hypoxemia; F17.210 Nicotine dependence, cigarettes, uncomplicated; K21.9 Gastro-esophageal reflux disease without esophagitis; K44.9 Diaphragmatic hernia without obstruction or gangrene; D50.0 Iron deficiency anemia secondary to blood loss (chronic); I83.12 Varicose veins of left lower extremity with inflammation; I83.11 Varicose veins of right lower extremity with inflammation; I89.0 Lymphedema, not elsewhere classified; R21 Rash and other nonspecific skin eruption; B36.9 Superficial mycosis, unspecified; I35.0 Nonrheumatic aortic (valve) stenosis; Z71.3 Dietary counseling and surveillance
CPT/HCPCS: 36415; 71275; 80048; 80053; 86713; 87040; 87449; 93005; 94640; 96361; 96365; 96375; 97162; 97165; 97530; 99223; 99232; 99233; 99291; J1650; 71046; 83605; 83735; 83880; 84484; 85025; 87070; 87205; 87450; 87581; 93010; 94660; 99238; J0696; J1941; J1956; J2930; J3490; J7512; J7613; J7620

== ENCOUNTER 2018-09-11 14:55 | Emergency (ER) | payer MEDICAID, SELFPAY ==
[2018-09-11 14:59] VITALS: BP 173/70; PULSE 95; RESP 20; TEMP 36.6; O2SAT 95
--- NOTE | 2018-09-11 15:36 | W.ED.GENAD ---
Discharge Plan Disposition Patient Disposition: HOME Condition: Stable Discharge Details Chief Complaint: RashLesion Clinical Impression: Cellulitis, Chronic acquired lymphedema, Leg wound, right Primary Care Provider: Jeremy Camejo ED Provider: Maricruz Sharp Home Meds and New Rx's Prescriptions: New cephalexin [Keflex] 500 mg capsule 500 mg PO QID 10 Days Qty: 40 RF: 0 naproxen 500 mg tablet 500 mg PO BID PRN (Reason: pain) Qty: 20 RF: 0 Continued ferrous sulfate 325 MG tablet 325 mg PO DAILY PRNRF: 0 omeprazole 20 MG capsule,delayed release(DR/EC) 20 mg PO DAILY RF: 0 albuterol sulfate [ProAir HFA] 90 mcg/actuation Hfa Aerosol Inhaler 2 puff INHALATION Q6H PRNRF: 0 metoprolol tartrate 25 mg Tablet 25 mg PO BID RF: 0 Ensure Liquid PO TID RF: 0 clotrimazole 1 % Cream 30 g topical PRN PRNQty: 0 RF: 0 Symbicort 80-4.5 mcg/actuation Hfa Aerosol Inhaler 2 g Inhalation BID Qty: 1 RF: 0 No Action zinc oxide 20 % Ointment 30 g topical PRN PRNQty: 0 RF: 0 vits A and D-white pet-lanolin Ointment 30 g topical PRN PRNQty: 0 RF: 0 Discharge Instructions Instructions: Cellulitis (ED), Lymphedema (ED) Additional Instructions: Take the antibiotics until finished. Apply nonadherent dressings to your right leg wound. Change the dressing once daily. Call your primary care doctor's office tomorrow to schedule a follow-up appointment for evaluation. Return immediately to the emergency department with any worsening or concerning symptoms Discharge Data Discharge Date/Time-TO BE ENTERED AT DEPARTURE: 09/11/18 15:59 Discharge Physician: Maricruz Sharp Medical Decision Making 43-year-old female with a history of morbid obesity, COPD, GERD, CHF, obstructive sleep apnea, chronic lymphedema who presents with chronic right lower extremity wound for the past year, worse w/ oozing and pain over the past 2 weeks. Patient appears nontoxic. Afebrile. She has chronic b/l leg skin changes/papules/thickening of skin, edema, erythema and induration consistent with lymphedema. She has bilateral lower extremity erythema and this is not significantly worse around the right leg wound. She is neurovascularly intact. The right leg posterior wound is oozing with surrounding tenderness to palpation but no evidence of abscess. Will give a dose of Keflex here as well as prescription for home. Patient had a nonadherent dressing with Mepilex placed and covered with Blaise wrap. She is instructed to call her primary care doctor tomorrow to schedule a follow-up appointment for reevaluation and to return here first [facility] General Mode of arrival: ambulatory. Date/Time Provider Initiated Documentation: 09/11/18 15:15. Limitations to Documentation: no limitations. Information obtained by: patient. HPI Narrative: Patient is a 43-year-old female with history of morbid obesity, COPD, CHF, short sleep apnea and GERD who presents with right posterior leg wound for the past year, oozing and worsening pain over the last few weeks. Denies any known fever and states she has been eating and drinking normally. She has a history of chronic bilateral lower extremity lymphedema and states this is chronic and no worse than usual. She denies any recent antibiotics. She denies any recent injury. Related Data Home Medications Medication Instructions Recorded Confirmed ferrous sulfate 325 mg PO DAILY PRN 12/07/14 09/11/18 omeprazole 20 mg PO DAILY 12/07/14 09/11/18 Ensure PO TID 06/12/18 albuterol sulfate [ProAir HFA] 2 puff INHALATION Q6H PRN 06/12/18 09/11/18 metoprolol tartrate 25 mg PO BID 06/12/18 09/11/18 Symbicort 2 g INHALATION BID #1 inh 06/19/18 09/11/18 clotrimazole 30 g TOPICAL PRN PRN #0 g 06/19/18 09/11/18 vits A and D-white pet-lanolin 30 g TOPICAL PRN PRN #0 g 06/19/18 zinc oxide 30 g TOPICAL PRN PRN #0 g 06/19/18 cephalexin [Keflex] 500 mg PO QID 10 Days #40 cap 09/11/18 naproxen 500 mg PO BID PRN #20 tab 09/11/18 Previous Rx's Medication Instructions Recorded Symbicort 2 g INHALATION BID #1 inh 06/19/18 clotrimazole 30 g TOPICAL PRN PRN #0 g 06/19/18 vits A and D-white pet-lanolin 30 g TOPICAL PRN PRN #0 g 06/19/18 zinc oxide 30 g TOPICAL PRN PRN #0 g 06/19/18 cephalexin [Keflex] 500 mg PO QID 10 Days #40 cap 09/11/18 naproxen 500 mg PO BID PRN #20 tab 09/11/18 Allergies Allergy/AdvReac Type Severity Reaction Status Date / Time No Known Allergies Allergy Unverified 09/11/18 15:02 General Stated Complaint: RashLesion KRISTIE: 3 Review of Systems Review of Systems All systems reviewed & are unremarkable except as noted in HPI and below Constitutional Reports as per HPI, Denies chills and Denies fever(s) Eyes Denies blurry vision ENT Denies dizziness, Denies sore throat and Denies throat swelling Cardiovascular Denies chest pain and Denies dyspnea Respiratory Denies cough and Denies dyspnea Gastrointestinal Denies abdominal pain, Denies diarrhea and Denies vomiting Genitourinary Denies hematuria and Denies dysuria Musculoskeletal Denies back pain and Denies numbness Integumentary/Breasts Reports lesions and Reports rash Neurologic Denies dizziness, Denies focal weakness and Denies numbness Allergic/Immunologic Denies throat swelling [facility] Medical History Anemia (Chronic) Fatty infiltration of liver (Chronic) Sleep apnea (Chronic) Atypical nevi (Chronic) Internal hemorrhoids (Chronic) Hernia, diaphragmatic (Chronic) Chronic obstructive pulmonary disease (Chronic) High grade squamous 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) Lymph edema (Chronic) Tobacco use disorder (Chronic) Irregular menses (Chronic) Anemia, iron deficiency (Chronic) Obstructive sleep apnea (Chronic) Hiatal hernia (Chronic) Tobacco abuse (Chronic) GERD (gastroesophageal reflux disease) (Chronic) 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) Aortic stenosis (Chronic 04/17/18) LVH (left ventricular hypertrophy) (Chronic 04/17/18) Lymphedema (Chronic) COPD (chronic obstructive pulmonary disease) (Chronic) Morbid obesity (Chronic) Atypical squamous cells of undetermined significance on cytologic smear of cervix (ASC-US) (Acute) Disease of nail (Acute) Alcohol abuse (Chronic) Dysfunctional uterine bleeding (Resolved) Chronic GERD Diastasis recti Heart murmur Menorrhagia with irregular cycle Morbid obesity with BMI of 50.0-59.9, adult Transfusion history Social History Smoking/Tobacco Use Status: Current every day Tobacco Type: cigarettes Alcohol Intake: current Alcohol Intake frequency: holidays/special occasions only Drug use: Never Substance use type: does not use Do you feel safe at home: Yes Do you feel safe in your relationship?: Yes History History 0 Para Hx # Term Pregnancies Multiple births Hx # Pregnancies Ectopic pregnancies AB induced Hx Number of Living Children AB spontaneous Exam Const General: cooperative, healthy appearing and no acute distress HENMT Head: normal to inspection Mouth: oral mucosae normal Eyes General: appearance normal, both eyes and all related structures Neck Neck: normal visual inspection Resp Effort & Inspection: normal respiratory effort and able to speak in complete sentences Cardio Rate: regular rate Skin General skin exam: no rashes or lesions noted Neuro General: alert, awake and oriented x3 Motor: muscle tone normal throughout Extrem Other: b/l lower extremity edema, erythema, chronic skin changes with thickening of skin with hard indurated papules consistent with chronic lymphedema. There is an approximate 5 x 5 cm open wound with yellowish clear oozing noted in the right mid posterior leg which is tender to palpation. The erythema noted around this area is present throughout the entire leg and is similar to the left lower extremity. Bilateral DP/PT pulses intact. No fluctuance consistent with abscess. Psych Appearance: grossly normal Affect: normal affect Course Vital Signs Temperature 97.9 F 09/11/18 14:59 Pulse 95 H 09/11/18 14:59 Respiratory Rate 09/11/18 14:59 Blood Pressure 173/70 H 09/11/18 14:59 Pulse Oximetry 95 09/11/18 14:59 Temperature 97.9 F 09/11/18 14:59 Temperature Source Temporal Artery Scan 09/11/18 14:59 Pulse 95 H 09/11/18 14:59 Respiratory Rate 09/11/18 14:59 Respiratory Effort Non-Labored 09/11/18 14:59 Blood Pressure 173/70 H 09/11/18 14:59 Blood Pressure Position Sitting 09/11/18 14:59 Pulse Oximetry 95 05/02/19 14:59 Oxygen Delivery Method Room Air 09/11/18 14:59 Oxygen Flow Rate 0 09/11/18 14:59 Pain Level 10 09/11/18 14:59
[2018-09-11] MEDS: Ibuprofen 600 MG TAB (15:50)
[2018-09-11] MEDS: Cephalexin 500 MG CAP PO (15:50)
[2018-09-11 16:00] VITALS: BP 173/70; PULSE 95; RESP 20; TEMP 36.6; O2SAT 95
== END 2018-09-11 15:59 | disposition home or self-care (01) ==
PROVIDERS: Emergency Provider Physician Assistant; PCP Specialist/Technologist Athletic Trainer
DX: L03.115 Cellulitis of right lower limb (principal); I89.0 Lymphedema, not elsewhere classified; J44.9 Chronic obstructive pulmonary disease, unspecified; F17.210 Nicotine dependence, cigarettes, uncomplicated
CPT/HCPCS: 99283